=== PATIENT | male | born 1950 | race Caucasian/White ===

== ENCOUNTER → 2016-11-26 | Outpatient (CLI) | payer BC ==
[~2016-11-26] MED LIST: GLIM1TAB2 PO; METF500T PO; SIMV40TA2 PO
[2016-11-26 09:53] LABS: ALT/SGPT 41 U/L (12-78); AST/SGOT 28 U/L (15-37); BLOOD UREA NITROGEN 19 mg/dl (7-18); BUN/CREATININE RATIO 17.3 (10-20); CALCIUM 9.1 mg/dl (8.5-10.1); CARBON DIOXIDE 23 mmol/L (21-32); CHLORIDE 108 mmol/L (98-107); CHOLESTEROL 128 mg/dl (0-200); GLUCOSE 133 mg/dl (70-99); POTASSIUM 3.9 mmol/L (3.5-5.1); SODIUM 141 mmol/L (136-145)
[2016-11-26 09:57] LABS: CHOLESTEROL/HDL RATIO 3.2; HDL CHOLESTEROL 40 mg/dl; LDL CHOLESTEROL CALCULATED 70 mg/dl; TRIGLYCERIDES 89 mg/dl (0-150); VERY LOW DENSITY LIPOPROT CALC 18 mg/dl
[2016-11-26 09:59] LABS: ESTIMATED AVERAGE GLUCOSE 171 mg/dl; HA1C FLAG Normal (Normal)
[2016-11-26 10:24] LABS: RATIO 6.1 mcg/mg (0-30.0)
== END | disposition home or self-care (01) ==
LOC: C.LAB1850 08:05
PROVIDERS: ATTEND Internal Medicine
DX: E11.9 Type 2 diabetes mellitus without complications (principal); E78.5 Hyperlipidemia, unspecified; Z12.5 Encounter for screening for malignant neoplasm of prostate

== ENCOUNTER → 2017-08-08 | Outpatient (CLI) | payer BC ==
[2017-08-08 13:32] LABS: ESTIMATED AVERAGE GLUCOSE 186 mg/dl; HA1C FLAG Normal (Normal)
[2017-08-08 13:39] LABS: BLOOD UREA NITROGEN 14 mg/dl (7-18); BUN/CREATININE RATIO 12.5 (10-20); CALCIUM 9.2 mg/dl (8.5-10.1); CARBON DIOXIDE 28 mmol/L (21-32); CHLORIDE 104 mmol/L (98-107); CREATININE 1.12 mg/dl (0.60-1.40); GLUCOSE 138 mg/dl (70-99); POTASSIUM 3.9 mmol/L (3.5-5.1); SODIUM 136 mmol/L (136-145)
== END | disposition home or self-care (01) ==
LOC: C.LAB1850 11:55
PROVIDERS: ATTEND Internal Medicine
DX: E11.9 Type 2 diabetes mellitus without complications (principal)

== ENCOUNTER 2019-07-24 09:55 | Inpatient (IN) ==
[2019-07-24] MEDS ORDERED: ACETAMINOPHEN 325 MG TAB PO PRN (10:20)
[2019-07-24] MEDS ORDERED: POLYETHYLENE (MIRALAX) 17 GM PACK PO PRN (10:20)
[2019-07-24] MEDS ORDERED: ONDANSETRON INJ 2 MG/ML 2 ML VIAL IV PRN (10:20)
[2019-07-24] MEDS ORDERED: SODIUM CHLORIDE 0.9% 250 ML IV PRN (10:23)
[2019-07-24] MEDS ORDERED: DEXTROSE 50% 50 ML SYRINGE IV PRN (10:26)
[2019-07-24] MEDS ORDERED: GLUCOSE 10 TABS/TUBE PO PRN (10:26)
[2019-07-24] MEDS ORDERED: CARBOHYDRATES FOR HYPOGLYCEMIA PO PRN (10:26)
[2019-07-24] MEDS ORDERED: GLUCAGON FOR INJ 1 MG VIAL SQ PRN (10:26)
[2019-07-24] MEDS ORDERED: GLUCOSE 40% GEL 15 GM TUBE PO PRN (10:26)
[2019-07-24] MEDS ORDERED: SODIUM CHLORIDE 0.9% 1000ML 1,000 ML IV SCH (10:30)
[2019-07-24] MEDS ORDERED: PATIENT'S HEIGHT AND/OR WEIGHT NEEDED SCH (10:30)
[2019-07-24] MEDS ORDERED: PHARMACY GLYCEMIC MGMT CONSULT PRN (10:48)
[2019-07-24 10:52] LABS: Hematocrit (blood only) 22.9 % (42-52); Hemoglobin 7.6 g/dL (14.0-18.0); Mean Corpuscular Hemoglobin 27.5 pg (25-34); Mean Corpuscular Hgb Conc 33.2 g/dL (32-36); Mean Platelet Volume 8.2 fL (7.4-10.4); Platelet Count 127 K/uL (130-400); RDW Coefficient of Variation 16.2 % (11.5-14.5); RDW Standard Deviation 48.6 fL (36.4-46.3); Red Blood Count 2.76 M/uL (4.7-6.1); White Blood Count 8.62 K/uL (4.8-10.8)
[2019-07-24 11:20] LABS: Basophils # (auto) 0.34 K/uL (0-0.2); Basophils % (auto) 3.9 %; Eosinophils # (auto) 0.05 K/uL (0-0.5); Eosinophils % (auto) 0.6 %; Immature Granulocytes # (auto) 0.38 K/uL (0.00-0.02); Immature Granulocytes % (auto) 4.4 %; Lymphocytes # (auto) 1.52 K/uL (1.2-3.4); Lymphocytes % (auto) 17.6 %; Monocytes # (auto) 1.06 K/uL (0.11-0.59); Monocytes % (auto) 12.3 %; Neutrophils # (auto) 5.27 K/uL (1.4-6.5); Neutrophils % (auto) 61.2 %
[2019-07-24 11:24] LABS: Alanine Aminotransferase 13 U/L (12-78); Albumin Globulin Ratio 0.7 (0.9-2); Albumin Level 2.7 gm/dl (3.4-5.0); Alkaline Phosphatase 120 U/L (45-117); Aspartate Aminotransferase 127 U/L (15-37); BUN Creatinine Ratio 10.3 (10-20); Bilirubin,Total 0.9 mg/dl (0.2-1); Blood Urea Nitrogen 25 mg/dl (7-18); Calcium 10.4 mg/dl (8.5-10.1); Carbon Dioxide 21 mmol/L (21-32); Chloride 100 mmol/L (98-107); Est GFR (African American) 29.8; Est GFR (Non-African American) 25.7; Globulin 3.7 gm/dl (2.5-4.0); Glucose 112 mg/dl (70-99); Magnesium 1.5 mg/dl (1.8-2.4); Phosphorus 3.5 mg/dl (2.5-4.9); Potassium 4.1 mmol/L (3.5-5.1); Sodium 132 mmol/L (136-145); Total Protein 6.4 gm/dl (6.4-8.2); Uric Acid 12.3 mg/dl (2.6-7.2)
[2019-07-24] MEDS ORDERED: INSULIN HUMAN NPH SC SCH ×2 (11:30)
--- NOTE | 2019-07-24 11:48 | History & Physical Report ---
Date of Service July 24, 2019 Assessment & Plan (1) Diffuse large B cell lymphoma: - Recently diagnosed DLBCL -- admitted for R-CHOP chemotherapy, plan to start on 07/25/19. - Prednisone 100 mg daily x 5 days. - Monitor TLS labs q8hr (see below) - Oncology consulted, appreciate input. - Pt. will require Neulasta injection as outpatient following completion of chemotherapy (will need to arrange in infusion center, is not covered inpatient) (2) Tumor lysis syndrome: - In setting of DLBCL -- evidence of TLS on admission labs. - NS at 150 cc/hr for aggressive IV fluid hydration. - Start Allopurinol 300 mg daily; may require Rasburicase if no improvement in uric acid levels. - Monitor TLS labs qAM. (3) Acute renal failure: - In setting of DLBCL/TLS and likely partially related to dehydration. - Creatinine 2.46, baseline ~1.2-1.3. - NS at 150 cc/hr. - Monitor BMP q8hr -- next lab at 8 pm this evening. (4) Hypercalcemia: - In setting of malignancy. - On IV fluids at 150 cc/hr. (5) Elevated blood uric acid level: - In setting of TLS -- uric acid level was 12.3. - Will start allopurinol 300 mg daily and IV fluids. - Monitor level q8hr; consider rasburicase if no improvement. (6) Anemia: - In setting of DLBCL. - Hgb 7.6 - will transfuse 2 units pRBCs. - Monitor CBC qAM. (7) Thrombocytopenia: - Plt count slowly trending down. - Continue Heparin ppx, hold if plt <50K. (8) Elevated LFTs: - Elevated AST and Alk Phos. - Monitor CMP daily. (9) Diabetes mellitus: - Most recent A1C was 10.2 in May 2019. - Hold home oral agents. - Consulted pharmacy as inpatient due to likelihood of steroid induced hyperglycemia. (10) Hyperlipidemia: - Continue statin as prescribed with close monitoring of LFTs. (11) Hypothyroidism: - Continue Synthroid 100 mcg daily. - TSH was 10.2 in Jun; will hold repeat level due to acute illness. (12) Electrolyte abnormality: - Mag level 1.5 -- ordered mag sulfate 2 gm IV. (13) DVT prophylaxis: - SCDs; Heparin q12hr (hold if plt <50K) Dispo: PCU/tele for R-chop chemotherapy; will need Neulasta at discharge. Consider PT/OT evaluation due to weakness. History of Present Illness Chief Complaint: Inpatient chemotherapy Primary Care Provider: Blayne Webber MD Mr. Maria is a 68 year old with past medical history of hypothyroidism, HLD, Type II DM and recently diagnosed diffuse large B-cell Lymphoma who presented with fatigue and loss of appetite. Pt. was initially evaluated by hematology in June 2019 with B symptoms. He had diffuse lymphadenopathy and splenic lesions on CT scan. Bone marrow biopsy along with lymph node biopsy confirmed DLBCL diagnosis. He is status post port placement for chemotherapy administration. He was evaluated in the clinic by Dr. Angulo and referred for direct admission/urgent chemotherapy. Pt. states he has had increased fatigue/loss of appetite over the last few weeks since diagnosis. Oral intake is very poor -- minimal fluid intake at home. Last BM was on Saturday prior to mediport placement. Pt. has had a rash on both arms over the last month -- states rash is non-pruritic but has been increasing over last few days. Denies nausea/vomiting, abd pain, fever/chills, dysuria or hematuria, urinary retention, LE edema, headache, URI symptoms. He will be admitted for cycle 1 of R-CHOP chemotherapy. Admission lab work was consistent with TLS requiring PO Allopurinol and IV fluid hydration. Allergies Allergy/AdvReac Type Severity Reaction Status Date / Time No Known Drug Allergies Allergy Unknown . Verified 07/21/19 08:04 Home Medications Home Medications Medication Instructions Recorded Confirmed Type Januvia 100 mg PO QAM 07/08/19 07/21/19 History levothyroxine 100 mcg PO QAM 07/08/19 07/21/19 History metformin 1,000 mg PO QPM 07/08/19 07/21/19 History simvastatin 40 mg PO HS 07/08/19 07/21/19 History allopurinol 300 mg PO DAILY #1 tab 07/25/19 Rx prednisone 100 mg PO DAILY #3 tab 07/25/19 Rx Past Med/Surg History Medical History Anemia Anemia Diabetes mellitus type 2, not well controlled Diffuse large B cell lymphoma Hearing deficit Hypercholesterolemia Hypothyroidism Lymphoma NEW DX SOB (shortness of breath) on exertion Surgical History History of colonoscopy S/P lymph node biopsy (07/09/19) Left Marla Incisional Lymph Node Biopsy Dr. Myers 07/09/19 [place] teeth removed Family History Mother Cancer Brain cancer Heart disease Father Cancer Lung cancer Diabetes Social History Preferred Language: Icelandic Communication Ability: Effective Visual Impairment: No Limitations Hearing Ability: Normal Wireless Sales Associate Required: No Beliefs That Will Affect Care: None marital status: Current Living Situation: Spouse current occupational status: employed and retired Feels Safe at Home: Yes Smoking Status: Never smoker Second Hand Exposure: No ; Hx Alcohol Use: Yes Alcohol type: beer and wine Alcohol Intake Frequency: Holidays/Special Occasions Hx Substance Use: No Seatbelt Use: always Review of Systems Review of Systems: All systems reviewed & are unremarkable except as noted in HPI & below Constitutional: + fatigue, + malaise, + weakness, + anorexia and + weight loss; no fever and no chills Respiratory: no cough, no dyspnea, no dyspnea on exertion and no wheezing Cardiovascular: no chest pain, no palpitations and no edema Gastrointestinal: + constipation; no abdominal pain, no nausea, no vomiting and no diarrhea/loose stools Genitourinary: no dysuria and no difficulty urinating Musculoskeletal: no back pain and no joint pain Integumentary: + rash and + non-healing lesions Hematologic / Lymphatic: + lymphadenopathy and + unexplained weight loss; no easy bleeding and no easy bruising Physical Exam Physical Exam: General: Frail appearing male, no acute distress. HEENT: NC/AT; PERRLA with EOMI; [place] conjunctiva, MMM. No erythema of posterior pharynx Neck: Supple and nontender Cardiac: RRR Lungs: CTA bilaterally Abdomen: Bowel normoactive X 4; Nontender to palpation Extremities: Warm. No edema present Neuro: No focal weakness Skin: Erythematous papules scattered on bilat upper extremities, some lesions with ring like appearance. Results & Data Laboratory Results 07/24/19 07/24/19 07/24/19 Range/Units 11:21 10:36 10:36 WBC (4.8-10.8) K/uL RBC (4.7-6.1) M/uL Hgb (14.0-18.0) g/dL Hct (42-52) % MCV (80-100) fL MCH (25-34) pg MCHC (32-36) g/dL RDW Std Deviation (36.4-46.3) fL RDW Coeff of Sunni (11.5-14.5) % Plt Count (130-400) K/uL MPV (7.4-10.4) fL Immature Gran % (Auto) % Neut % (Auto) % Lymph % (Auto) % [place] % (Auto) % Eos % (Auto) % Baso % (Auto) % Immature Gran # (Auto) (0.00-0.02) K/uL Neut # (Auto) (1.4-6.5) K/uL Lymph # (Auto) (1.2-3.4) K/uL [place] # (Auto) (0.11-0.59) K/uL Eos # (Auto) (0-0.5) K/uL Baso # (Auto) (0-0.2) K/uL Sodium (136-145) mmol/L Potassium (3.5-5.1) mmol/L Chloride (98-107) mmol/L Carbon Dioxide (21-32) mmol/L Anion Gap (3-11) BUN (7-18) mg/dl Creatinine (0.6-1.4) mg/dl Est Cr Clr Drug Dosing Est GFR ( Amer) Est GFR (Non-Af Amer) BUN/Creatinine Ratio (10-20) Glucose (70-99) mg/dl POC Glucose 119 H (70-99) Uric Acid (2.6-7.2) mg/dl Calcium (8.5-10.1) mg/dl Phosphorus (2.5-4.9) mg/dl Magnesium (1.8-2.4) mg/dl Total Bilirubin (0.2-1) mg/dl AST (15-37) U/L ALT (12-78) U/L Alkaline Phosphatase (45-117) U/L Lactate Dehydrogenase 1114 H (87-241) U/L Total Protein (6.4-8.2) gm/dl Albumin (3.4-5.0) gm/dl Globulin (2.5-4.0) gm/dl Albumin/Globulin Ratio (0.9-2) Specimen Hemolysis Blood Type O Positive Antibody Screen NEGATIVE Crossmatch See Detail 07/24/19 07/24/19 Range/Units 10:36 10:36 WBC 8.62 (4.8-10.8) K/uL RBC 2.76 L (4.7-6.1) M/uL Hgb 7.6 L (14.0-18.0) g/dL Hct 22.9 L (42-52) % MCV 83.0 (80-100) fL MCH 27.5 (25-34) pg MCHC 33.2 (32-36) g/dL RDW Std Deviation 48.6 H (36.4-46.3) fL RDW Coeff of [place] 16.2 H (11.5-14.5) % Plt Count 127 L (130-400) K/uL MPV 8.2 (7.4-10.4) fL Immature Gran % (Auto) 4.4 % Neut % (Auto) 61.2 % Lymph % (Auto) 17.6 % [place] % (Auto) 12.3 % Eos % (Auto) 0.6 % Baso % (Auto) 3.9 % Immature Gran # (Auto) 0.38 H (0.00-0.02) K/uL Neut # (Auto) 5.27 (1.4-6.5) K/uL Lymph # (Auto) 1.52 (1.2-3.4) K/uL [place] # (Auto) 1.06 H (0.11-0.59) K/uL Eos # (Auto) 0.05 (0-0.5) K/uL Baso # (Auto) 0.34 H (0-0.2) K/uL Sodium 132 L (136-145) mmol/L Potassium 4.1 (3.5-5.1) mmol/L Chloride 100 (98-107) mmol/L Carbon Dioxide 21 (21-32) mmol/L Anion Gap 11.0 (3-11) BUN 25 H (7-18) mg/dl Creatinine 2.46 H (0.6-1.4) mg/dl Est Cr Clr Drug Dosing Not Reportable Est GFR ( Amer) 29.8 Est GFR (Non-Af Amer) 25.7 BUN/Creatinine Ratio 10.3 (10-20) Glucose 112 H (70-99) mg/dl POC Glucose (70-99) Uric Acid 12.3 H (2.6-7.2) mg/dl Calcium 10.4 H (8.5-10.1) mg/dl Phosphorus 3.5 (2.5-4.9) mg/dl Magnesium 1.5 L (1.8-2.4) mg/dl Total Bilirubin 0.9 (0.2-1) mg/dl AST 127 H (15-37) U/L ALT 13 (12-78) U/L Alkaline Phosphatase 120 H (45-117) U/L Lactate Dehydrogenase (87-241) U/L Total Protein 6.4 (6.4-8.2) gm/dl Albumin 2.7 L (3.4-5.0) gm/dl Globulin 3.7 (2.5-4.0) gm/dl Albumin/Globulin Ratio 0.7 L (0.9-2) Specimen Hemolysis Blood Type Antibody Screen Crossmatch Code Status & VTE Plan VTE Prophylaxis Plan VTE Prophylaxis will be ordered: No Supervising Physician Co-Signing Physician Notes Patient was interviewed and examined at bedside. I reviewed above note and agree with it. I answered all of the patient's questions. My exam did not diFfer from the exam noted on this document. Obtained consent to transfuse PRBC. Patient has tumor lysis syndrome, daphne continue with IVF. PG Care Time/CCT Total # of Minutes Spent Total Time Spent with Patient: Total time spent is greater than 50% in coordination of care (as documented) at patient's floor/unit and/or counseling patient:
[2019-07-24] MEDS: ALLOPURINOL 300 MG TAB PO SCH (12:04)
--- NOTE | 2019-07-24 12:26 | Pharmacy Report ---
Glycemic Control Consultation - Date of Service July 24, 2019 - Scope Scope: Glycemic Pharmacist consulted by Negrita Walter on 07/24/19 for glycemic control and to write orders per [facility] inpatient glycemic control protocol - Objective Accuchecks BSG (last 24hrs): 07/24/19 07/24/19 10:36 11:21 Glucose 112 H POC Glucose 119 H Laboratory Data (last 24hrs): 07/24/19 10:36 Potassium 4.1 Carbon Dioxide 21 Anion Gap 11.0 Creatinine 2.46 H Est Cr Clr Drug Dosing Not Reportable - Recent Pertinent Medications Outpatient Anti-diabetic Regimen: * metformin 1 gm PO BID + Januvia 100 mg daily * A1c = 10.2 % 05/21/19 Risk Factors for Insulin Resistance: * Steroids: prednisone 100 mg PO Daily x 5 days * Diet: regular diet - Assessment & Plan Assessment & Plan: ASSESSMENT: * Mr Maria is a 68 y/o M admitted for RCHOP therapy with TLS (tumor lysis syndrome). His HbA1C indicates poor control HOWEVER I'm not sure this is 100% accurate. HbA1C is affected by red blood cell life (currently receiving blood and has lymphoma) plus recent steroid use. Will not order basal insulin at this time. Prior to port placement on 07/21/19 patient was hypoglycemic in the morning. Monitor. * Since patient will receive 100 mg of prednisone - start with NPH 0.4 units/kg (30 units) and titrate upwards. Weight-based stress of 3 Novolog for now. * Pt is maintained on oral antidiabetic agents as an outpatient * Oral agents are not recommended for inpatient use d/t drug interactions, changing PO intake, and difficulty titrating for acute hyper/hypoglycemia. ADA recommends re-initiating outpatient oral agents 1-2 days prior to discharge if/when appropriate if they were held on admission. * Will hold oral agents for admission and utilize SQ basal bolus insulin regimen which is the recommended regimen for inpatient glycemic control. * Will initiate weight based insulin dosing for insulin karen patient and titrate based on BSG trends. * ADA & AACE recommend a goal blood sugar range 140-180 mg/dl for the majority of critically ill & non-critically ill patients. However, more stringent targets may be selected in individual cases. Will utilize more stringent goal of 110-140mg/dl based on patient age & comorbidities. PLAN FOR INPATIENT GLYCEMIC CONTROL: * Holding outpatient oral diabetes medications * Bolus insulin * NovoLog per scale ACHS or Q6hrs while NPO * Goal Range: Low 110 mg/dL - High 140 mg/dL * Correction Factor: 20 mg/dL/unit * Nutritional / Prandial insulin per carb ratio of 1 unit per 7 grams CHO consumed * Please note that the plan above was derived based on current level of insulin resistance and hospital stress. These recommendations are appropriate for inpatient admission only. Plan of care upon discharge will need to be reassessed to avoid potential outpatient hypo/hyperglycemia. Thank you.
[2019-07-24] MEDS: INSULIN ASPART 100 UNITS/ML 3 ML PEN SC SCH ×3 (12:30→21:20)
[2019-07-24] MEDS: predniSONE 50 MG TAB PO SCH (12:37)
[2019-07-24] MEDS: MAGNESIUM SULFATE / D5W 1 GM/100 ML BAG IV SCH ×2 (12:42→14:21)
--- NOTE | 2019-07-24 20:09 | Nephrology Consultation ---
Date of Consultation July 24, 2019 Assessment & Plan (1) Diffuse large B cell lymphoma: - Admitted for R-CHOP chemotherapy - Oncology notes reviewed (2) Tumor lysis syndrome: - Switch IV saline to normosol - Document I/O's - Repeat labs pending - Rasburicase prior to starting therapy, suggest a dose tonight if UA remains elevated (3) Acute renal failure: - IVF - Document I/O's - Clinically consistent with TLS/ATN - TLS labs q 8 hours - Check renal US (4) Hypercalcemia: - In setting of malignancy - IVF to encourage UOP (5) Elevated blood uric acid level: - Allopurinol and rasburicase (6) Anemia: - 2 u PRBC ordered (7) Diabetes mellitus: - Januvia and meformin held History of Present Illness Reason for Consultation: HILARIO, TLS Requesting Physician: Luis Carlos Serrano Attending Physician: Luis Carlos Serrano History of Present Illness Mr. Reji Maria is a 68-year-old male with DLBCL. The patient was seen and evaluated this afternoon with his at the bedside. Nephrology consultation provided for HILARIO and TLS. Patient scheduled for R-CHOP. Baseline creatinine 1.3 mg/dL. Creatinine on admission 2.46 mg/dL. Non-oliguric. UA 12+. Calcium 10.4. PO4 WNL. Albumin 2.4. Potassium normal. Hemoglobin 7.6. 2 units PRBC transfusion support ordered. IV saline infusing at 150 ml/hr. Medical history notable for DM and hypothyroidism. No fevers. No urinary complaints. Voiding without difficulty. No dyspnea. Allergies Allergy/AdvReac Type Severity Reaction Status Date / Time No Known Drug Allergies Allergy Unknown . Verified 07/21/19 08:04 Home Medications Home Medications Medication Instructions Recorded Confirmed Type Januvia 100 mg PO QAM 07/08/19 07/21/19 History levothyroxine 100 mcg PO QAM 07/08/19 07/21/19 History metformin 1,000 mg PO QPM 07/08/19 07/21/19 History simvastatin 40 mg PO HS 07/08/19 07/21/19 History cephalexin 500 mg capsule 500 mg PO QID 7 Days #28 cap 07/15/19 07/21/19 Rx triamcinolone acetonide [Nasacort] 2 spray INTRANASAL DAILY PRN 07/15/19 07/21/19 History Patient History Medical History Anemia Anemia Diabetes mellitus type 2, not well controlled Diffuse large B cell lymphoma Hearing deficit Hypercholesterolemia Hypothyroidism Lymphoma NEW DX SOB (shortness of breath) on exertion Surgical History History of colonoscopy S/P lymph node biopsy (07/09/19) Left Marla Incisional Lymph Node Biopsy Dr. Myers 07/09/19 [place] teeth removed Family History Mother Cancer Brain cancer Heart disease Father Cancer Lung cancer Diabetes Social History Preferred Language: Bangladeshi Communication Ability: Effective Visual Impairment: No Limitations Hearing Ability: Normal Locator Required: No Beliefs That Will Affect Care: None marital status: Current Living Situation: Spouse current occupational status: employed and retired Other Information That Helps Us Care for You: No Feels Safe at Home: Yes Safety Concerns: Feels Safe At This Time Smoking Status: Never smoker Do You Dip or Chew Tobacco: No ; Second Hand Exposure: No ; Hx Alcohol Use: Yes Alcohol type: beer and wine Alcohol Intake Frequency: Holidays/Special Occasions Hx Substance Use: No Seatbelt Use: always Review of Systems Review of Systems: All systems reviewed & are unremarkable except as noted in HPI & below Physical Exam Constitutional: well developed; no acute distress Eyes: no scleral abnormality and no corneal abnormality ENMT: Mouth: no oral mucosal abnormality and oral mucous membranes not dry Neck: normal visual inspection and trachea midline Respiratory: normal respiratory effort Auscultation: lungs clear to auscultation bilaterally Cardiovascular: Rate/Rhythm: regular rate Heart Sounds: normal S1 and normal S2 Extremities: no edema Musculoskeletal: Extremities: no cyanosis and no clubbing Skin: normal turgor; no lesions Neurologic: Motor/Sensory: no tremor and no asterixis Psychiatric: Orientation: alert and oriented x 3 Results & Data Vital Signs (Past 12 Hours) Vital Signs Temp Pulse Pulse Resp BP BP Pulse Ox 07/24/19 18:50 36.6 C 93 H 15 154/78 H 96 07/24/19 18:24 36.4 C L 95 H 20 154/68 H 95 07/24/19 17:16 36.5 C 90 18 163/86 H 96 07/24/19 17:14 36.8 C 93 H 20 158/85 H 95 07/24/19 16:36 36.3 C L 87 22 148/80 H 94 07/24/19 15:36 36.4 C L 88 19 144/76 H 94 07/24/19 15:08 36.9 C 87 20 147/77 H 95 07/24/19 15:06 36.4 C L 85 20 147/77 H 92 07/24/19 14:51 36.9 C 07/24/19 14:35 36.8 C 90 20 143/77 H 90 07/24/19 10:30 36.8 C 95 H 20 101/48 L 95 Laboratory Results Laboratory Results - last 24 hr 07/24/19 07/24/19 07/24/19 10:36 10:36 10:36 WBC 8.62 RBC 2.76 L Hgb 7.6 L Hct 22.9 L MCV 83.0 MCH 27.5 MCHC 33.2 RDW Std Deviation 48.6 H RDW Coeff of Sunni 16.2 H Plt Count 127 L MPV 8.2 Immature Gran % (Auto) 4.4 Neut % (Auto) 61.2 Lymph % (Auto) 17.6 [place] % (Auto) 12.3 Eos % (Auto) 0.6 Baso % (Auto) 3.9 Immature Gran # (Auto) 0.38 H Neut # (Auto) 5.27 Lymph # (Auto) 1.52 [place] # (Auto) 1.06 H Eos # (Auto) 0.05 Baso # (Auto) 0.34 H Sodium 132 L Potassium 4.1 Chloride 100 Carbon Dioxide 21 Anion Gap 11.0 BUN 25 H Creatinine 2.46 H Est Cr Clr Drug Dosing Not Reportable Est GFR ( Amer) 29.8 Est GFR (Non-Af Amer) 25.7 BUN/Creatinine Ratio 10.3 Glucose 112 H POC Glucose Uric Acid 12.3 H Calcium 10.4 H Phosphorus 3.5 Magnesium 1.5 L Total Bilirubin 0.9 AST 127 H ALT 13 Alkaline Phosphatase 120 H Lactate Dehydrogenase Total Protein 6.4 Albumin 2.7 L Globulin 3.7 Albumin/Globulin Ratio 0.7 L Specimen Hemolysis Blood Type O Positive Antibody Screen NEGATIVE Crossmatch See Detail 07/24/19 07/24/19 07/24/19 10:36 11:21 16:35 WBC RBC Hgb Hct MCV MCH MCHC RDW Std Deviation RDW Coeff of [place] Plt Count MPV Immature Gran % (Auto) Neut % (Auto) Lymph % (Auto) [place] % (Auto) Eos % (Auto) Baso % (Auto) Immature Gran # (Auto) Neut # (Auto) Lymph # (Auto) [place] # (Auto) Eos # (Auto) Baso # (Auto) Sodium Potassium Chloride Carbon Dioxide Anion Gap BUN Creatinine Est Cr Clr Drug Dosing Est GFR ( Amer) Est GFR (Non-Af Amer) BUN/Creatinine Ratio Glucose POC Glucose 119 H 129 H Uric Acid Calcium Phosphorus Magnesium Total Bilirubin AST ALT Alkaline Phosphatase Lactate Dehydrogenase 1114 H Total Protein Albumin Globulin Albumin/Globulin Ratio Specimen Hemolysis Blood Type Antibody Screen Crossmatch PG Care Time/CCT Total # of Minutes Spent Total Time Spent with Patient: Total time spent is greater than 50% in coordination of care (as documented) at patient's floor/unit and/or counseling patient:
[2019-07-24] MEDS ORDERED: SIMVASTATIN 40 MG TAB PO SCH (21:00)
[2019-07-24] MEDS: HEPARIN SOD 5,000 UNIT/0.5 ML VIAL SQ SCH (21:20)
[2019-07-24] MEDS: NORMOSOL-R 1,000 ML IV SCH (21:45)
[2019-07-24 22:42] LABS: Calcium 10.4 mg/dl (8.5-10.1); Creatinine Clr Calc Pharmacy 32.4 ml/min; Est GFR (African American) 33.8; Est GFR (Non-African American) 29.2; Phosphorus 5.5 mg/dl (2.5-4.9); Potassium 4.7 mmol/L (3.5-5.1); Uric Acid 11.1 mg/dl (2.6-7.2)
[2019-07-24 22:58] LABS: Beta-Hydroxybutyrate 22.46 mg/dl (0.2-2.81)
[2019-07-25] MEDS ORDERED: HEPARIN 100 UNIT/ML 5ML FLUSH FLUSH PRN (00:28)
[2019-07-25 04:10] LABS: Hematocrit (blood only) 25.8 % (42-52); Hemoglobin 8.6 g/dL (14.0-18.0); Mean Corpuscular Hemoglobin 28.1 pg (25-34); Mean Corpuscular Hgb Conc 33.3 g/dL (32-36); Mean Corpuscular Volume 84.3 fL (80-100); Mean Platelet Volume 8.7 fL (7.4-10.4); Nucleated RBC # (auto) 0.02 K/uL (0-0); Nucleated RBC % (auto) 0.3 %; Platelet Count 115 K/uL (130-400); RDW Coefficient of Variation 15.8 % (11.5-14.5); RDW Standard Deviation 48.3 fL (36.4-46.3); Red Blood Count 3.06 M/uL (4.7-6.1); White Blood Count 7.99 K/uL (4.8-10.8)
[2019-07-25] MEDS: NORMOSOL-R 1,000 ML IV SCH ×3 (04:29→13:23)
[2019-07-25 04:39] LABS: Albumin Level 2.4 gm/dl (3.4-5.0); BUN Creatinine Ratio 18.2 (10-20); Bilirubin Direct 0.3 mg/dl (0-0.2); Bilirubin,Total 0.6 mg/dl (0.2-1); Creatinine Clr Calc Pharmacy 33.5 ml/min; Est GFR (African American) 35.1; Est GFR (Non-African American) 30.3; Magnesium 2.1 mg/dl (1.8-2.4); Phosphorus 5.6 mg/dl (2.5-4.9); Potassium 4.5 mmol/L (3.5-5.1); Total Protein 5.7 gm/dl (6.4-8.2); Uric Acid 10.9 mg/dl (2.6-7.2)
[2019-07-25 05:01] LABS: Beta-Hydroxybutyrate 14.46 mg/dl (0.2-2.81)
[2019-07-25 05:36] LABS: Appearance Urine Clear (Clear); Bacteria Urine Automated Negative (Negative); Bilirubin Urine Negative (Negative); Blood Urine 3+ (Negative); Color Urine Yellow; Epithelial Cell Urine Auto >30 /lpf (0-5); Glucose Urine UA 3+ (Negative); Ketones Urine Trace (Negative); Leukocyte Esterase Urine Negative (Negative); Nitrite Urine Negative (Negative); Protein Urine 1+ (Negative); Specific Gravity Urine 1.023 (1.000-1.030); Urobilinogen Urine Negative (Negative)
[2019-07-25] MEDS ORDERED: LEVOTHYROXINE SODIUM 100 MCG TABLET PO SCH (06:30)
[2019-07-25] MEDS ORDERED: ACETAMINOPHEN 325 MG TAB PO SCH (07:30)
[2019-07-25] MEDS ORDERED: dexAMETHasone 4 MG TAB PO SCH (07:30)
[2019-07-25] MEDS ORDERED: DiphenhydrAMINE HCL 50 MG/ML VIAL IV SCH (07:30)
[2019-07-25] MEDS ORDERED: INSULIN HUMAN NPH SC ONE (07:45)
[2019-07-25] MEDS: predniSONE 50 MG TAB PO SCH (07:56)
[2019-07-25] MEDS: HEPARIN SOD 5,000 UNIT/0.5 ML VIAL SQ SCH (07:56)
[2019-07-25] MEDS: ALLOPURINOL 300 MG TAB PO SCH (07:56)
[2019-07-25] MEDS ORDERED: DiphenhydrAMINE HCL 50 MG/ML VIAL IV PRN (08:00)
[2019-07-25] MEDS: INSULIN ASPART 100 UNITS/ML 3 ML PEN SC SCH ×3 (08:00→18:26)
[2019-07-25] MEDS ORDERED: SODIUM CHLORIDE 0.9% IV SCH ×3 (08:00→14:00)
[2019-07-25] MEDS ORDERED: RITUXIMAB IV SCH (08:00)
[2019-07-25] MEDS ORDERED: MEPERIDINE HCL 25 MG/ML CARP IV PRN (08:00)
[2019-07-25] MEDS ORDERED: dexAMETHasone 20 MG in SODIUM CHLORIDE 0.9% 50 ML IV PRN (08:00)
[2019-07-25] MEDS ORDERED: SODIUM CHLORIDE 0.9% 1000ML 1,000 ML IV PRN (08:00)
[2019-07-25] MEDS ORDERED: RASBURICASE 3 MG in SODIUM CHLORIDE 0.9% 50 ML IV SCH (08:30)
[2019-07-25] MEDS ORDERED: DOCUSATE SODIUM 100 MG CAP PO SCH (09:00)
--- NOTE | 2019-07-25 09:18 | Consultation Report ---
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 HISTORY OF PRESENT ILLNESS: Mr. Maria is a very pleasant 68-year-old gentleman well known to [facility] with new diagnosis of stage IV diffuse large B cell lymphoma admitted to [facility] on my insistence after seeing him in the office yesterday for outpatient followup. I was introduced to Mr. Maria in early June at which time presented with night sweats, anorexia, weight loss and anemia. His primary provider had seen him previously and hence the consultation to pursue diagnosis. He imparts developing these symptoms around Labor Day or so. He was seen frequently by his primary care physician for diabetic workup and it was also noted hemoglobin had dropped about 2 grams in 2 months. I was concerned with these symptoms and ordered a CT scan of the neck, chest, abdomen and pelvis which revealed diffuse lymphadenopathy which prompted subsequent biopsy confirming the diagnosis. Performed staging bone marrow biopsy and aspiration which also confirmed presence of infiltrating non-Hodgkin's lymphoma. Mr. Maria had presented to the office yesterday to discuss bone marrow findings and was quite symptomatic. He was clearly in clinical decline and decided to proceed with admission. His laboratories reflect disease progression and thus a plan to proceed with cycle #1 R-CHOP chemotherapy. PAST MEDICAL HISTORY: Significant for type 1 diabetes mellitus, hypertension, hyperlipidemia. PAST SURGICAL HISTORY: Colonoscopy. CURRENT MEDICATIONS: Includes glimepiride 2 mg 1-1/2 tablets p.o. b.i.d., metformin 1000 mg p.o. daily, simvastatin 40 mg p.o. daily, sitagliptin 100 mg p.o. daily. ALLERGIES: No known drug allergies. 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 FAMILY HISTORY: Mother succumbed to brain cancer. REVIEW OF SYSTEMS: The patient clearly suffered from ongoing night sweats, anorexia and weight loss of about 20 pounds, he estimates. He also report occasional low-grade fever. SKIN: No rashes or lesions. No history of dermatoses. HEENT: Negative for headaches. He has experienced some lightheadedness and dizziness as of late. No sinus symptoms, sore throat or dysphagia. LYMPH: Diffuse radiographically evident lymphadenopathy consistent with lymphoproliferative process. CARDIAC: No current angina or palpitations. PULMONARY: He is not acutely short of breath, dyspneic or orthopneic. No cough or hemoptysis. GASTROINTESTINAL: Negative for abdominal pain, no nausea or vomiting. No diarrhea or constipation, hematochezia or melena stools. GENITOURINARY: No hematuria, dysuria, urinary incontinence. PSYCHIATRIC: Negative for anxiety, depression or psychoses by history. ENDOCRINE: Positive for type 1 diabetes mellitus. NEUROLOGIC: Negative for seizures, stroke, or migraine headache. MUSCULOSKELETAL: Negative for arthralgias or myalgias. No muscle weakness. HEMATOLOGIC: Positive for anemia. PHYSICAL EXAMINATION: GENERAL: Very pleasant 68-year-old gentleman in no acute distress. VITAL SIGNS: Temperature 36.4, pulse 77, respiratory rate 19, blood pressure 130/67. SKIN: Warm, dry, noncyanotic without petechia, rash or ecchymosis. HEENT: Head is atraumatic, normocephalic. Eyes: PERRLA, EOMI. Sclerae nonicteric. No conjunctival injection. Nares are patent without rhinorrhea or discharge. Throat is clear. Tongue is midline. Mucous membranes are moist. NECK: Supple without JVD or thyromegaly. LYMPHATICS: No cervical or supraclavicular palpable nodes. HEART: Regular rate and rhythm. No clicks, rubs, murmurs or gallops. LUNGS: Clear to auscultation bilaterally. ABDOMEN: Soft, nontender, nondistended, without palpable hepatosplenomegaly. EXTREMITIES: No calf tenderness or swelling. No clubbing, cyanosis or edema. NEUROLOGICALLY: The patient is awake, alert, and oriented x3. Cranial nerves are grossly intact. LABORATORY DATA: WBC count 7990, hemoglobin 8.6, platelet count 115,000. Sodium 131, potassium 4.5, chloride 97, carbon dioxide 24, creatinine 2.15, BUN 39, glucose 314, uric acid 10.9, phosphorus 5.6, AST 101. LDH 1050, albumin 2.4. IMPRESSION: 1. Symptomatic diffuse large B-cell lymphoma. 2. Induction chemotherapy rituximab, cyclophosphamide, Adriamycin, vincristine and prednisone. 3. Electrolyte dysfunction/tumor lysis syndrome. 4. Uric acid nephropathy. 5. Acute renal injury. 6. Hypoalbuminemia. 7. Anemia/thrombocytopenia. PLAN: In summary, Mr. Maria is a pleasant, quite ill 68-year-old gentleman who presented to my office yesterday morning quite ill. It was clear hospital admission was necessary to move forward. Fortunately, his MediPort had been installed and prepared to receive cycle #1 R-CHOP chemotherapy. Engaged in discussion with Mr. Maria and his regarding risks versus benefits associated with this combination chemotherapy. My fear short term is ongoing tumor lysis and management as well as profound myelosuppression attributable to infiltrating bone marrow disease. His hemoglobin was quite low on admission and recommended transfusion of packed RBCs which took place last night. Mr. Maria is suffering from considerable electrolyte dysfunction including elevated uric acid which needs to be managed. I recommended nephrology be consulted to assist in tumor lysis management. Other side effects associated with this agent include nausea and vomiting, alopecia, hemorrhagic cystitis, infusional reaction, peripheral neuropathy, constipation, and profound myelosuppression. The patient will require aggressive granulocyte colony-stimulating growth factor support. Vigorous IV hydration as well as maintaining reasonable p.o. intake throughout the process. I expect him to be hospitalized for the next 3-4 days. Mr. Maria and his understand without emergent treatment, he would most likely succumb within days and thus decided to proceed. Informed consent was obtained. He will begin chemotherapy this morning. We will continue to follow him throughout hospitalization and arrange for outpatient followup upon discharge. Thank you very much for allowing me to participate in the care of this very pleasant gentleman. NOELLE
[2019-07-25] MEDS ORDERED: POLYETHYLENE (MIRALAX) 17 GM PACK PO PRN (10:39)
--- NOTE | 2019-07-25 10:51 | Hospitalist Progress Note ---
Date of Service July 25, 2019 Assessment & Plan (1) Diffuse large B cell lymphoma: - Recently diagnosed DLBCL -- started cycle 1 R-CHOP this morning, day 1. - Prednisone 100 mg daily x 5 days. - Monitor TLS labs q8hr (see below) - Oncology consulted, appreciate input. - Will require Neulasta injection as outpatient following completion of chemotherapy (will need to arrange in infusion center, is not covered inpatient) (2) Tumor lysis syndrome: - In setting of DLBCL -- TLS noted on admission labs. Uric acid, Creatinine, Phos and LDH remain elevated. - Normosol at 150 cc/hr. - Allopurinol 300 mg daily; received Rasburicase 3 mg IV (usual dose of 6 mg IV, had limited supply in the pharmacy) x 1 dose this morning. - Monitor TLS labs q8hr. (3) Acute renal failure: - In setting of TLS and partially related to dehydration. - Creatinine peaked at 2.46, is now trending down; baseline ~1.2-1.3. - Normosol at 150 cc/hr - monitor for volume overload, did have pulm congestion and pleural effusions noted on CXR from 07/21. - Monitor BMP q8hr. (4) Hypercalcemia: - In setting of malignancy; level is improving. - IV fluids at 150 cc/hr. (5) Elevated blood uric acid level: - In setting of TLS -- uric acid level was 12.3, slightly improved to 10.9. - Allopurinol 300 mg daily and IV fluids. Also received Rasburicase 3 mg IV (limited supply availabe in pharmacy) - Monitor level q8hr. (6) Hypoxia: - Has been requiring 2L via NC. - CXR on 07/21 showed pulm vascular congestion, left>right pleural effusions. - Has been requiring aggressive IV fluids due to TLS, will need to monitor for volume overload. Consider repeat CXR vs. CT scan for worsening hypoxia. (7) Anemia: - In setting of DLBCL. - Hgb 7.6, received 2 units on 07/24. Not requiring transfusion support today. - Monitor CBC daily. - Pt. will need close follow up with lab work following R-CHOP chemotherapy. (8) Thrombocytopenia: - Plt count slowly trending down. - Continue Heparin ppx, hold if plt <50K. (9) Elevated LFTs: - Elevated AST and Alk Phos. - Monitor CMP daily - improving. (10) Diabetes mellitus: - Most recent A1C was 10.2 in May 2019. - Hold home oral agents. - Consulted pharmacy - currently treating steroid induced hyperglycemia. (11) Hyperlipidemia: - Continue statin as prescribed (monitor LFTs closely) (12) Hypothyroidism: - Continue Synthroid 100 mcg daily. - TSH was 10.2 in Jun; hold repeat level due to acute illness. (13) Electrolyte abnormality: - Replace as needed - caution with KCl replacement for hypokalemia in setting of TLS. (14) DVT prophylaxis: - SCDs; Heparin q12hr (hold if plt <50K) Dispo: R-chop chemotherapy; will need Neulasta at discharge. Will order PT evaluation due to increased weakness. Subjective Pt. has more energy today. Denies SOB but has been requiring 2L via NC. Denies chest pain. Has not had a BM since Saturday -- will start Colace 100 mg BID & Miralax prn. Today is day 1 of cycle 1 R-CHOP chemotherapy. Review of Systems Review of Systems: All systems reviewed & are unremarkable except as noted in HPI & below Constitutional: + fatigue, + weakness and + anorexia; no fever and no chills Respiratory: no cough, no dyspnea, no dyspnea on exertion and no wheezing Cardiovascular: no chest pain, no palpitations and no edema Gastrointestinal: + constipation; no abdominal pain and no nausea Genitourinary: no difficulty urinating Musculoskeletal: no back pain and no joint pain Integumentary: + rash Physical Exam Physical Exam: General: Frail appearing male. HEENT: NC/AT; PERRLA with EOMI; [place] conjunctiva, MMM. No erythema of posterior pharynx Neck: Supple and nontender Cardiac: RRR Lungs: on 2L via NC; mild crackles noted in bilat lung bases. Abdomen: Bowel normoactive X 4; Nontender to palpation Extremities: Warm. No edema present Neuro: No focal weakness Skin: Erythematous papules scattered on bilat upper extremities. Results & Data Vital Signs (Past 12 Hours) Vital Signs Temp Pulse Pulse Resp BP Pulse Ox 07/25/19 08:15 36.3 C L 86 18 125/72 07/25/19 07:32 36.4 C L 77 19 130/67 94 07/25/19 03:40 95 H 07/25/19 02:32 36.4 C L 90 17 132/73 94 07/24/19 23:45 36.7 C 97 H 21 145/80 H 93 Laboratory Results 07/25/19 07/25/19 07/25/19 Range/Units 07:35 07:34 05:25 WBC (4.8-10.8) K/uL RBC (4.7-6.1) M/uL Hgb (14.0-18.0) g/dL Hct (42-52) % MCV (80-100) fL MCH (25-34) pg MCHC (32-36) g/dL RDW Std Deviation (36.4-46.3) fL RDW Coeff of Sunni (11.5-14.5) % Plt Count (130-400) K/uL MPV (7.4-10.4) fL Immature Gran % (Auto) % Neut % (Auto) % Lymph % (Auto) % [place]win % (Auto) % Eos % (Auto) % Baso % (Auto) % Immature Gran # (Auto) (0.00-0.02) K/uL Neut # (Auto) (1.4-6.5) K/uL Lymph # (Auto) (1.2-3.4) K/uL [place]win # (Auto) (0.11-0.59) K/uL Eos # (Auto) (0-0.5) K/uL Baso # (Auto) (0-0.2) K/uL Absolute Nucleated RBC (0-0) K/uL Nucleated RBC % (auto) % Sodium (136-145) mmol/L Potassium (3.5-5.1) mmol/L Chloride (98-107) mmol/L Carbon Dioxide (21-32) mmol/L Anion Gap (3-11) BUN (7-18) mg/dl Creatinine (0.6-1.4) mg/dl Est Cr Clr Drug Dosing Est GFR ( Amer) Est GFR (Non-Af Amer) BUN/Creatinine Ratio (10-20) Glucose (70-99) mg/dl POC Glucose 353 H* 333 H* (70-99) Uric Acid (2.6-7.2) mg/dl Calcium (8.5-10.1) mg/dl Phosphorus (2.5-4.9) mg/dl Magnesium (1.8-2.4) mg/dl Total Bilirubin (0.2-1) mg/dl Direct Bilirubin (0-0.2) mg/dl AST (15-37) U/L ALT (12-78) U/L Alkaline Phosphatase (45-117) U/L Lactate Dehydrogenase (87-241) U/L Total Protein (6.4-8.2) gm/dl Albumin (3.4-5.0) gm/dl Globulin (2.5-4.0) gm/dl Albumin/Globulin Ratio (0.9-2) Beta-Hydroxybutyric Acd (0.2-2.81) mg/dl Specimen Hemolysis Urine Color Yellow Urine Appearance Clear (Clear) Urine pH 5.0 (4.5-7.5) Ur Specific [place] 1.023 (1.000-1.030) Urine Protein 1+ H (Negative) Urine Glucose (UA) 3+ H (Negative) Urine Ketones Trace H (Negative) Urine Blood 3+ H (Negative) Urine Nitrite Negative (Negative) Urine Bilirubin Negative (Negative) Urine Urobilinogen Negative (Negative) Ur Leukocyte Esterase Negative (Negative) Urine WBC (Auto) 1-5 (0-5) /hpf Urine RBC (Auto) 10-30 H (0-4) /hpf U Hyaline Cast (Auto) 5-10 H (0-5) /lpf U Epithel Cells (Auto) >30 H (0-5) /lpf Urine Bacteria (Auto) Negative (Negative) Urine Yeast Budding A (None Prsent) Blood Type Antibody Screen Crossmatch 07/25/19 07/25/19 07/25/19 Range/Units 04:03 04:03 04:03 WBC 7.99 (4.8-10.8) K/uL RBC 3.06 L (4.7-6.1) M/uL Hgb 8.6 L (14.0-18.0) g/dL Hct 25.8 L (42-52) % MCV 84.3 (80-100) fL MCH 28.1 (25-34) pg MCHC 33.3 (32-36) g/dL RDW Std Deviation 48.3 H (36.4-46.3) fL RDW Coeff of Sunni 15.8 H (11.5-14.5) % Plt Count 115 L (130-400) K/uL MPV 8.7 (7.4-10.4) fL Immature Gran % (Auto) % Neut % (Auto) % Lymph % (Auto) % [place] % (Auto) % Eos % (Auto) % Baso % (Auto) % Immature Gran # (Auto) (0.00-0.02) K/uL Neut # (Auto) (1.4-6.5) K/uL Lymph # (Auto) (1.2-3.4) K/uL [place]win # (Auto) (0.11-0.59) K/uL Eos # (Auto) (0-0.5) K/uL Baso # (Auto) (0-0.2) K/uL Absolute Nucleated RBC 0.02 H (0-0) K/uL Nucleated RBC % (auto) 0.3 % Sodium 131 L (136-145) mmol/L Potassium 4.5 (3.5-5.1) mmol/L Chloride 97 L (98-107) mmol/L Carbon Dioxide 24 (21-32) mmol/L Anion Gap 10.0 (3-11) BUN 39 H (7-18) mg/dl Creatinine 2.15 H (0.6-1.4) mg/dl Est Cr Clr Drug Dosing 33.5 Est GFR ( Amer) 35.1 Est GFR (Non-Af Amer) 30.3 BUN/Creatinine Ratio 18.2 (10-20) Glucose 314 H* (70-99) mg/dl POC Glucose (70-99) Uric Acid 10.9 H (2.6-7.2) mg/dl Calcium 10.0 (8.5-10.1) mg/dl Phosphorus 5.6 H (2.5-4.9) mg/dl Magnesium 2.1 (1.8-2.4) mg/dl Total Bilirubin 0.6 (0.2-1) mg/dl Direct Bilirubin 0.3 H (0-0.2) mg/dl AST 101 H (15-37) U/L ALT 14 (12-78) U/L Alkaline Phosphatase 105 (45-117) U/L Lactate Dehydrogenase 1050 H (87-241) U/L Total Protein 5.7 L (6.4-8.2) gm/dl Albumin 2.4 L (3.4-5.0) gm/dl Globulin (2.5-4.0) gm/dl Albumin/Globulin Ratio (0.9-2) Beta-Hydroxybutyric Acd 14.46 H (0.2-2.81) mg/dl Specimen Hemolysis Urine Color Urine Appearance (Clear) Urine pH (4.5-7.5) Ur Specific [place] (1.000-1.030) Urine Protein (Negative) Urine Glucose (UA) (Negative) Urine Ketones (Negative) Urine Blood (Negative) Urine Nitrite (Negative) Urine Bilirubin (Negative) Urine Urobilinogen (Negative) Ur Leukocyte Esterase (Negative) Urine WBC (Auto) (0-5) /hpf Urine RBC (Auto) (0-4) /hpf U Hyaline Cast (Auto) (0-5) /lpf U Epithel Cells (Auto) (0-5) /lpf Urine Bacteria (Auto) (Negative) Urine Yeast (None Prsent) Blood Type Antibody Screen Crossmatch 07/25/19 07/24/19 07/24/19 Range/Units 00:45 22:00 20:42 WBC (4.8-10.8) K/uL RBC (4.7-6.1) M/uL Hgb (14.0-18.0) g/dL Hct (42-52) % MCV (80-100) fL MCH (25-34) pg MCHC (32-36) g/dL RDW Std Deviation (36.4-46.3) fL RDW Coeff of Sunni (11.5-14.5) % Plt Count (130-400) K/uL MPV (7.4-10.4) fL Immature Gran % (Auto) % Neut % (Auto) % Lymph % (Auto) % [place] % (Auto) % Eos % (Auto) % Baso % (Auto) % Immature Gran # (Auto) (0.00-0.02) K/uL Neut # (Auto) (1.4-6.5) K/uL Lymph # (Auto) (1.2-3.4) K/uL [place] # (Auto) (0.11-0.59) K/uL Eos # (Auto) (0-0.5) K/uL Baso # (Auto) (0-0.2) K/uL Absolute Nucleated RBC (0-0) K/uL Nucleated RBC % (auto) % Sodium 130 L (136-145) mmol/L Potassium 4.7 (3.5-5.1) mmol/L Chloride 96 L (98-107) mmol/L Carbon Dioxide 20 L (21-32) mmol/L Anion Gap 14.0 H (3-11) BUN 36 H (7-18) mg/dl Creatinine 2.22 H (0.6-1.4) mg/dl Est Cr Clr Drug Dosing 32.4 Est GFR ( Amer) 33.8 Est GFR (Non-Af Amer) 29.2 BUN/Creatinine Ratio 16.0 (10-20) Glucose 346 H* (70-99) mg/dl POC Glucose 296 H 347 H* (70-99) Uric Acid 11.1 H (2.6-7.2) mg/dl Calcium 10.4 H (8.5-10.1) mg/dl Phosphorus 5.5 H D (2.5-4.9) mg/dl Magnesium (1.8-2.4) mg/dl Total Bilirubin (0.2-1) mg/dl Direct Bilirubin (0-0.2) mg/dl AST (15-37) U/L ALT (12-78) U/L Alkaline Phosphatase (45-117) U/L Lactate Dehydrogenase (87-241) U/L Total Protein (6.4-8.2) gm/dl Albumin (3.4-5.0) gm/dl Globulin (2.5-4.0) gm/dl Albumin/Globulin Ratio (0.9-2) Beta-Hydroxybutyric Acd 22.46 H (0.2-2.81) mg/dl Specimen Hemolysis Urine Color Urine Appearance (Clear) Urine pH (4.5-7.5) Ur Specific [place] (1.000-1.030) Urine Protein (Negative) Urine Glucose (UA) (Negative) Urine Ketones (Negative) Urine Blood (Negative) Urine Nitrite (Negative) Urine Bilirubin (Negative) Urine Urobilinogen (Negative) Ur Leukocyte Esterase (Negative) Urine WBC (Auto) (0-5) /hpf Urine RBC (Auto) (0-4) /hpf U Hyaline Cast (Auto) (0-5) /lpf U Epithel Cells (Auto) (0-5) /lpf Urine Bacteria (Auto) (Negative) Urine Yeast (None Prsent) Blood Type Antibody Screen Crossmatch 07/24/19 07/24/19 07/24/19 Range/Units 20:34 16:35 11:21 WBC (4.8-10.8) K/uL RBC (4.7-6.1) M/uL Hgb (14.0-18.0) g/dL Hct (42-52) % MCV (80-100) fL MCH (25-34) pg MCHC (32-36) g/dL RDW Std Deviation (36.4-46.3) fL RDW Coeff of [place] (11.5-14.5) % Plt Count (130-400) K/uL MPV (7.4-10.4) fL Immature Gran % (Auto) % Neut % (Auto) % Lymph % (Auto) % [place] % (Auto) % Eos % (Auto) % Baso % (Auto) % Immature Gran # (Auto) (0.00-0.02) K/uL Neut # (Auto) (1.4-6.5) K/uL Lymph # (Auto) (1.2-3.4) K/uL [place] # (Auto) (0.11-0.59) K/uL Eos # (Auto) (0-0.5) K/uL Baso # (Auto) (0-0.2) K/uL Absolute Nucleated RBC (0-0) K/uL Nucleated RBC % (auto) % Sodium (136-145) mmol/L Potassium (3.5-5.1) mmol/L Chloride (98-107) mmol/L Carbon Dioxide (21-32) mmol/L Anion Gap (3-11) BUN (7-18) mg/dl Creatinine (0.6-1.4) mg/dl Est Cr Clr Drug Dosing Est GFR ( Amer) Est GFR (Non-Af Amer) BUN/Creatinine Ratio (10-20) Glucose (70-99) mg/dl POC Glucose 365 H* 129 H 119 H (70-99) Uric Acid (2.6-7.2) mg/dl Calcium (8.5-10.1) mg/dl Phosphorus (2.5-4.9) mg/dl Magnesium (1.8-2.4) mg/dl Total Bilirubin (0.2-1) mg/dl Direct Bilirubin (0-0.2) mg/dl AST (15-37) U/L ALT (12-78) U/L Alkaline Phosphatase (45-117) U/L Lactate Dehydrogenase (87-241) U/L Total Protein (6.4-8.2) gm/dl Albumin (3.4-5.0) gm/dl Globulin (2.5-4.0) gm/dl Albumin/Globulin Ratio (0.9-2) Beta-Hydroxybutyric Acd (0.2-2.81) mg/dl Specimen Hemolysis Urine Color Urine Appearance (Clear) Urine pH (4.5-7.5) Ur Specific [place] (1.000-1.030) Urine Protein (Negative) Urine Glucose (UA) (Negative) Urine Ketones (Negative) Urine Blood (Negative) Urine Nitrite (Negative) Urine Bilirubin (Negative) Urine Urobilinogen (Negative) Ur Leukocyte Esterase (Negative) Urine WBC (Auto) (0-5) /hpf Urine RBC (Auto) (0-4) /hpf U Hyaline Cast (Auto) (0-5) /lpf U Epithel Cells (Auto) (0-5) /lpf Urine Bacteria (Auto) (Negative) Urine Yeast (None Prsent) Blood Type Antibody Screen Crossmatch 07/24/19 07/24/19 07/24/19 Range/Units 10:36 10:36 10:36 WBC (4.8-10.8) K/uL RBC (4.7-6.1) M/uL Hgb (14.0-18.0) g/dL Hct (42-52) % MCV (80-100) fL MCH (25-34) pg MCHC (32-36) g/dL RDW Std Deviation (36.4-46.3) fL RDW Coeff of [place] (11.5-14.5) % Plt Count (130-400) K/uL MPV (7.4-10.4) fL Immature Gran % (Auto) % Neut % (Auto) % Lymph % (Auto) % [place] % (Auto) % Eos % (Auto) % Baso % (Auto) % Immature Gran # (Auto) (0.00-0.02) K/uL Neut # (Auto) (1.4-6.5) K/uL Lymph # (Auto) (1.2-3.4) K/uL [place] # (Auto) (0.11-0.59) K/uL Eos # (Auto) (0-0.5) K/uL Baso # (Auto) (0-0.2) K/uL Absolute Nucleated RBC (0-0) K/uL Nucleated RBC % (auto) % Sodium 132 L (136-145) mmol/L Potassium 4.1 (3.5-5.1) mmol/L Chloride 100 (98-107) mmol/L Carbon Dioxide 21 (21-32) mmol/L Anion Gap 11.0 (3-11) BUN 25 H (7-18) mg/dl Creatinine 2.46 H (0.6-1.4) mg/dl Est Cr Clr Drug Dosing Not Reportable Est GFR ( Amer) 29.8 Est GFR (Non-Af Amer) 25.7 BUN/Creatinine Ratio 10.3 (10-20) Glucose 112 H (70-99) mg/dl POC Glucose (70-99) Uric Acid 12.3 H (2.6-7.2) mg/dl Calcium 10.4 H (8.5-10.1) mg/dl Phosphorus 3.5 (2.5-4.9) mg/dl Magnesium 1.5 L (1.8-2.4) mg/dl Total Bilirubin 0.9 (0.2-1) mg/dl Direct Bilirubin (0-0.2) mg/dl AST 127 H (15-37) U/L ALT 13 (12-78) U/L Alkaline Phosphatase 120 H (45-117) U/L Lactate Dehydrogenase 1114 H (87-241) U/L Total Protein 6.4 (6.4-8.2) gm/dl Albumin 2.7 L (3.4-5.0) gm/dl Globulin 3.7 (2.5-4.0) gm/dl Albumin/Globulin Ratio 0.7 L (0.9-2) Beta-Hydroxybutyric Acd (0.2-2.81) mg/dl Specimen Hemolysis Urine Color Urine Appearance (Clear) Urine pH (4.5-7.5) Ur Specific [place] (1.000-1.030) Urine Protein (Negative) Urine Glucose (UA) (Negative) Urine Ketones (Negative) Urine Blood (Negative) Urine Nitrite (Negative) Urine Bilirubin (Negative) Urine Urobilinogen (Negative) Ur Leukocyte Esterase (Negative) Urine WBC (Auto) (0-5) /hpf Urine RBC (Auto) (0-4) /hpf U Hyaline Cast (Auto) (0-5) /lpf U Epithel Cells (Auto) (0-5) /lpf Urine Bacteria (Auto) (Negative) Urine Yeast (None Prsent) Blood Type O Positive Antibody Screen NEGATIVE Crossmatch See Detail 07/24/19 Range/Units 10:36 WBC 8.62 (4.8-10.8) K/uL RBC 2.76 L (4.7-6.1) M/uL Hgb 7.6 L (14.0-18.0) g/dL Hct 22.9 L (42-52) % MCV 83.0 (80-100) fL MCH 27.5 (25-34) pg MCHC 33.2 (32-36) g/dL RDW Std Deviation 48.6 H (36.4-46.3) fL RDW Coeff of [place] 16.2 H (11.5-14.5) % Plt Count 127 L (130-400) K/uL MPV 8.2 (7.4-10.4) fL Immature Gran % (Auto) 4.4 % Neut % (Auto) 61.2 % Lymph % (Auto) 17.6 % [place] % (Auto) 12.3 % Eos % (Auto) 0.6 % Baso % (Auto) 3.9 % Immature Gran # (Auto) 0.38 H (0.00-0.02) K/uL Neut # (Auto) 5.27 (1.4-6.5) K/uL Lymph # (Auto) 1.52 (1.2-3.4) K/uL [place] # (Auto) 1.06 H (0.11-0.59) K/uL Eos # (Auto) 0.05 (0-0.5) K/uL Baso # (Auto) 0.34 H (0-0.2) K/uL Absolute Nucleated RBC (0-0) K/uL Nucleated RBC % (auto) % Sodium (136-145) mmol/L Potassium (3.5-5.1) mmol/L Chloride (98-107) mmol/L Carbon Dioxide (21-32) mmol/L Anion Gap (3-11) BUN (7-18) mg/dl Creatinine (0.6-1.4) mg/dl Est Cr Clr Drug Dosing Est GFR ( Amer) Est GFR (Non-Af Amer) BUN/Creatinine Ratio (10-20) Glucose (70-99) mg/dl POC Glucose (70-99) Uric Acid (2.6-7.2) mg/dl Calcium (8.5-10.1) mg/dl Phosphorus (2.5-4.9) mg/dl Magnesium (1.8-2.4) mg/dl Total Bilirubin (0.2-1) mg/dl Direct Bilirubin (0-0.2) mg/dl AST (15-37) U/L ALT (12-78) U/L Alkaline Phosphatase (45-117) U/L Lactate Dehydrogenase (87-241) U/L Total Protein (6.4-8.2) gm/dl Albumin (3.4-5.0) gm/dl Globulin (2.5-4.0) gm/dl Albumin/Globulin Ratio (0.9-2) Beta-Hydroxybutyric Acd (0.2-2.81) mg/dl Specimen Hemolysis Urine Color Urine Appearance (Clear) Urine pH (4.5-7.5) Ur Specific [place] (1.000-1.030) Urine Protein (Negative) Urine Glucose (UA) (Negative) Urine Ketones (Negative) Urine Blood (Negative) Urine Nitrite (Negative) Urine Bilirubin (Negative) Urine Urobilinogen (Negative) Ur Leukocyte Esterase (Negative) Urine WBC (Auto) (0-5) /hpf Urine RBC (Auto) (0-4) /hpf U Hyaline Cast (Auto) (0-5) /lpf U Epithel Cells (Auto) (0-5) /lpf Urine Bacteria (Auto) (Negative) Urine Yeast (None Prsent) Blood Type Antibody Screen Crossmatch PG Care Time/CCT Total # of Minutes Spent Total Time Spent with Patient: Total time spent is greater than 50% in coordination of care (as documented) at patient's floor/unit and/or counseling patient:
--- NOTE | 2019-07-25 10:56 | Nephrology Progress Note ---
Date of Service July 25, 2019 Assessment & Plan (1) Diffuse large B cell lymphoma: - Admitted for R-CHOP chemotherapy - Oncology notes reviewed (2) Tumor lysis syndrome: - Continue normosol @ 150 ml/hr - Document I/O's - Monitor labs q 8 hrs - Rasburicase given this AM (3) Acute renal failure: - IVF - Document I/O's - Clinically consistent with TLS/ATN - TLS labs q 8 hours - Renal US pending - No current indication for COMMUNITY LIAISON and kidney function is thankfully stable since yesterday. However, Reji is high risk for progression given ATN/TLS. I addressed this concern with the patient this morning. Dialysis is not available at [facility] for the remainder of the weekend and he is aware this will require transfer to another facility if indicated during treatment. (4) Hypercalcemia: - In setting of malignancy - IVF to encourage UOP (5) Elevated blood uric acid level: - Allopurinol and rasburicase (6) Anemia: - 2 u PRBC provided yesterday (7) Diabetes mellitus: - Januvia and meformin held Subjective No acute events overnight. Reji feels reasonably well this AM. Tolerating IVF. No fevers or chills. Appetite poor. Review of Systems Review of Systems: All systems reviewed & are unremarkable except as noted in HPI & below Physical Exam Constitutional: well developed; no acute distress Eyes: no scleral abnormality and no corneal abnormality ENMT: Mouth: no oral mucosal abnormality and oral mucous membranes not dry Neck: normal visual inspection and trachea midline Respiratory: normal respiratory effort Auscultation: + rales Cardiovascular: Rate/Rhythm: regular rate Heart Sounds: normal S1 and normal S2 Extremities: no edema Musculoskeletal: Extremities: no cyanosis and no clubbing Skin: normal turgor; no lesions Neurologic: Motor/Sensory: no tremor and no asterixis Psychiatric: Orientation: alert and oriented x 3 Results & Data Vital Signs (Past 12 Hours) Vital Signs Temp Pulse Pulse Resp BP BP Pulse Ox 07/25/19 09:15 85 18 133/65 07/25/19 08:45 90 20 140/65 07/25/19 08:15 36.3 C L 86 18 125/72 07/25/19 07:32 36.4 C L 77 19 130/67 94 07/25/19 03:40 95 H 07/25/19 02:32 36.4 C L 90 17 132/73 94 07/24/19 23:45 36.7 C 97 H 21 145/80 H 93 Laboratory Results Laboratory Results - last 24 hr 07/24/19 07/24/19 07/24/19 10:36 10:36 10:36 WBC 8.62 RBC 2.76 L Hgb 7.6 L Hct 22.9 L MCV 83.0 MCH 27.5 MCHC 33.2 RDW Std Deviation 48.6 H RDW Coeff of Sunni 16.2 H Plt Count 127 L MPV 8.2 Immature Gran % (Auto) 4.4 Neut % (Auto) 61.2 Lymph % (Auto) 17.6 [place] % (Auto) 12.3 Eos % (Auto) 0.6 Baso % (Auto) 3.9 Immature Gran # (Auto) 0.38 H Neut # (Auto) 5.27 Lymph # (Auto) 1.52 [place] # (Auto) 1.06 H Eos # (Auto) 0.05 Baso # (Auto) 0.34 H Absolute Nucleated RBC Nucleated RBC % (auto) Sodium 132 L Potassium 4.1 Chloride 100 Carbon Dioxide 21 Anion Gap 11.0 BUN 25 H Creatinine 2.46 H Est Cr Clr Drug Dosing Not Reportable Est GFR ( Amer) 29.8 Est GFR (Non-Af Amer) 25.7 BUN/Creatinine Ratio 10.3 Glucose 112 H POC Glucose Uric Acid 12.3 H Calcium 10.4 H Phosphorus 3.5 Magnesium 1.5 L Total Bilirubin 0.9 Direct Bilirubin AST 127 H ALT 13 Alkaline Phosphatase 120 H Lactate Dehydrogenase Total Protein 6.4 Albumin 2.7 L Globulin 3.7 Albumin/Globulin Ratio 0.7 L Beta-Hydroxybutyric Acd Specimen Hemolysis Urine Color Urine Appearance Urine pH Ur Specific [place] Urine Protein Urine Glucose (UA) Urine Ketones Urine Blood Urine Nitrite Urine Bilirubin Urine Urobilinogen Ur Leukocyte Esterase Urine WBC (Auto) Urine RBC (Auto) U Hyaline Cast (Auto) U Epithel Cells (Auto) Urine Bacteria (Auto) Urine Yeast Blood Type O Positive Antibody Screen NEGATIVE Crossmatch See Detail 07/24/19 07/24/19 07/24/19 10:36 11:21 16:35 WBC RBC Hgb Hct MCV MCH MCHC RDW Std Deviation RDW Coeff of [place] Plt Count MPV Immature Gran % (Auto) Neut % (Auto) Lymph % (Auto) [place] % (Auto) Eos % (Auto) Baso % (Auto) Immature Gran # (Auto) Neut # (Auto) Lymph # (Auto) [place] # (Auto) Eos # (Auto) Baso # (Auto) Absolute Nucleated RBC Nucleated RBC % (auto) Sodium Potassium Chloride Carbon Dioxide Anion Gap BUN Creatinine Est Cr Clr Drug Dosing Est GFR ( Amer) Est GFR (Non-Af Amer) BUN/Creatinine Ratio Glucose POC Glucose 119 H 129 H Uric Acid Calcium Phosphorus Magnesium Total Bilirubin Direct Bilirubin AST ALT Alkaline Phosphatase Lactate Dehydrogenase 1114 H Total Protein Albumin Globulin Albumin/Globulin Ratio Beta-Hydroxybutyric Acd Specimen Hemolysis Urine Color Urine Appearance Urine pH Ur Specific [place] Urine Protein Urine Glucose (UA) Urine Ketones Urine Blood Urine Nitrite Urine Bilirubin Urine Urobilinogen Ur Leukocyte Esterase Urine WBC (Auto) Urine RBC (Auto) U Hyaline Cast (Auto) U Epithel Cells (Auto) Urine Bacteria (Auto) Urine Yeast Blood Type Antibody Screen Crossmatch 07/24/19 07/24/19 07/24/19 20:34 20:42 22:00 WBC RBC Hgb Hct MCV MCH MCHC RDW Std Deviation RDW Coeff of [place] Plt Count MPV Immature Gran % (Auto) Neut % (Auto) Lymph % (Auto) [place] % (Auto) Eos % (Auto) Baso % (Auto) Immature Gran # (Auto) Neut # (Auto) Lymph # (Auto) [place] # (Auto) Eos # (Auto) Baso # (Auto) Absolute Nucleated RBC Nucleated RBC % (auto) Sodium 130 L Potassium 4.7 Chloride 96 L Carbon Dioxide 20 L Anion Gap 14.0 H BUN 36 H Creatinine 2.22 H Est Cr Clr Drug Dosing 32.4 Est GFR ( Amer) 33.8 Est GFR (Non-Af Amer) 29.2 BUN/Creatinine Ratio 16.0 Glucose 346 H* POC Glucose 365 H* 347 H* Uric Acid 11.1 H Calcium 10.4 H Phosphorus 5.5 H D Magnesium Total Bilirubin Direct Bilirubin AST ALT Alkaline Phosphatase Lactate Dehydrogenase Total Protein Albumin Globulin Albumin/Globulin Ratio Beta-Hydroxybutyric Acd 22.46 H Specimen Hemolysis Urine Color Urine Appearance Urine pH Ur Specific [place] Urine Protein Urine Glucose (UA) Urine Ketones Urine Blood Urine Nitrite Urine Bilirubin Urine Urobilinogen Ur Leukocyte Esterase Urine WBC (Auto) Urine RBC (Auto) U Hyaline Cast (Auto) U Epithel Cells (Auto) Urine Bacteria (Auto) Urine Yeast Blood Type Antibody Screen Crossmatch 07/25/19 07/25/19 07/25/19 00:45 04:03 04:03 WBC 7.99 RBC 3.06 L Hgb 8.6 L Hct 25.8 L MCV 84.3 MCH 28.1 MCHC 33.3 RDW Std Deviation 48.3 H RDW Coeff of Sunni 15.8 H Plt Count 115 L MPV 8.7 Immature Gran % (Auto) Neut % (Auto) Lymph % (Auto) [place] % (Auto) Eos % (Auto) Baso % (Auto) Immature Gran # (Auto) Neut # (Auto) Lymph # (Auto) [place] # (Auto) Eos # (Auto) Baso # (Auto) Absolute Nucleated RBC 0.02 H Nucleated RBC % (auto) 0.3 Sodium 131 L Potassium 4.5 Chloride 97 L Carbon Dioxide 24 Anion Gap 10.0 BUN 39 H Creatinine 2.15 H Est Cr Clr Drug Dosing 33.5 Est GFR ( Amer) 35.1 Est GFR (Non-Af Amer) 30.3 BUN/Creatinine Ratio 18.2 Glucose 314 H* POC Glucose 296 H Uric Acid 10.9 H Calcium 10.0 Phosphorus 5.6 H Magnesium 2.1 Total Bilirubin 0.6 Direct Bilirubin 0.3 H AST 101 H ALT 14 Alkaline Phosphatase 105 Lactate Dehydrogenase Total Protein 5.7 L Albumin 2.4 L Globulin Albumin/Globulin Ratio Beta-Hydroxybutyric Acd 14.46 H Specimen Hemolysis Urine Color Urine Appearance Urine pH Ur Specific [place] Urine Protein Urine Glucose (UA) Urine Ketones Urine Blood Urine Nitrite Urine Bilirubin Urine Urobilinogen Ur Leukocyte Esterase Urine WBC (Auto) Urine RBC (Auto) U Hyaline Cast (Auto) U Epithel Cells (Auto) Urine Bacteria (Auto) Urine Yeast Blood Type Antibody Screen Crossmatch 07/25/19 07/25/19 07/25/19 04:03 05:25 07:34 WBC RBC Hgb Hct MCV MCH MCHC RDW Std Deviation RDW Coeff of [place] Plt Count MPV Immature Gran % (Auto) Neut % (Auto) Lymph % (Auto) [place] % (Auto) Eos % (Auto) Baso % (Auto) Immature Gran # (Auto) Neut # (Auto) Lymph # (Auto) [place] # (Auto) Eos # (Auto) Baso # (Auto) Absolute Nucleated RBC Nucleated RBC % (auto) Sodium Potassium Chloride Carbon Dioxide Anion Gap BUN Creatinine Est Cr Clr Drug Dosing Est GFR ( Amer) Est GFR (Non-Af Amer) BUN/Creatinine Ratio Glucose POC Glucose 333 H* Uric Acid Calcium Phosphorus Magnesium Total Bilirubin Direct Bilirubin AST ALT Alkaline Phosphatase Lactate Dehydrogenase 1050 H Total Protein Albumin Globulin Albumin/Globulin Ratio Beta-Hydroxybutyric Acd Specimen Hemolysis Urine Color Yellow Urine Appearance Clear Urine pH 5.0 Ur Specific [place] 1.023 Urine Protein 1+ H Urine Glucose (UA) 3+ H Urine Ketones Trace H Urine Blood 3+ H Urine Nitrite Negative Urine Bilirubin Negative Urine Urobilinogen Negative Ur Leukocyte Esterase Negative Urine WBC (Auto) 1-5 Urine RBC (Auto) 10-30 H U Hyaline Cast (Auto) 5-10 H U Epithel Cells (Auto) >30 H Urine Bacteria (Auto) Negative Urine Yeast Budding A Blood Type Antibody Screen Crossmatch 07/25/19 07:35 WBC RBC Hgb Hct MCV MCH MCHC RDW Std Deviation RDW Coeff of [place] Plt Count MPV Immature Gran % (Auto) Neut % (Auto) Lymph % (Auto) [place] % (Auto) Eos % (Auto) Baso % (Auto) Immature Gran # (Auto) Neut # (Auto) Lymph # (Auto) [place] # (Auto) Eos # (Auto) Baso # (Auto) Absolute Nucleated RBC Nucleated RBC % (auto) Sodium Potassium Chloride Carbon Dioxide Anion Gap BUN Creatinine Est Cr Clr Drug Dosing Est GFR ( Amer) Est GFR (Non-Af Amer) BUN/Creatinine Ratio Glucose POC Glucose 353 H* Uric Acid Calcium Phosphorus Magnesium Total Bilirubin Direct Bilirubin AST ALT Alkaline Phosphatase Lactate Dehydrogenase Total Protein Albumin Globulin Albumin/Globulin Ratio Beta-Hydroxybutyric Acd Specimen Hemolysis Urine Color Urine Appearance Urine pH Ur Specific [place] Urine Protein Urine Glucose (UA) Urine Ketones Urine Blood Urine Nitrite Urine Bilirubin Urine Urobilinogen Ur Leukocyte Esterase Urine WBC (Auto) Urine RBC (Auto) U Hyaline Cast (Auto) U Epithel Cells (Auto) Urine Bacteria (Auto) Urine Yeast Blood Type Antibody Screen Crossmatch PG Care Time/CCT Total # of Minutes Spent Total Time Spent with Patient: Total time spent is greater than 50% in coordination of care (as documented) at patient's floor/unit and/or counseling patient:
--- NOTE | 2019-07-25 12:14 | Pharmacy Report ---
Pharmacy Glycemic Short Note 2 - Date of Service July 25, 2019 - Glycemic Short BSG Results (Last 24 hours): 07/24/19 07/24/19 07/24/19 16:35 20:34 20:42 Glucose POC Glucose 129 H 365 H* 347 H* 07/24/19 07/25/19 07/25/19 22:00 00:45 04:03 Glucose 346 H* 314 H* POC Glucose 296 H 07/25/19 07/25/19 07/25/19 07:34 07:35 11:26 Glucose POC Glucose 333 H* 353 H* 306 H* 07/25/19 11:27 Glucose POC Glucose 334 H* OUTPATIENT ANTIDIABETIC REGIMEN: * Metformin + Januvia ASSESSMENT: * 68yo T2DM with SEVERE steroid induced hyperglycemia * A1c is most likely not totally reliable based on patient's altered RBC turnover rate secondary to chemo * Pt received prednisone 100mg PO yesterday * Pt received 42 units of insulin with this with inadequate control, BSGs [phone] * Pt will receive prednisone 100mg PO today + will receive dexamethasone 20mg PO x 1 as chemo pre-treat * Will double insulin dosing from yesterday to be consistent with doubling of steroid dosing (20mg PO dxm = ~ 130 mg of PO prednisone) * BSGs all > 300 since last evening. Will also tighten CF/CR and add overnight checks + coverage at 000 & 0400 with NovoLog PLAN FOR INPATIENT GLYCEMIC CONTROL: * Hold outpatient oral diabetes medications * Basal insulin * NPH 40 units SQ x 1 dose this AM for severe hyperglycemia then, 30 units SQ BID * Bolus insulin * NovoLog per scale ACHS or Q6hrs while NPO also, overnight checks + coverage at 000 & 0400 * Goal Range: Low 110 mg/dL - High 140 mg/dL * Correction Factor: 15 mg/dL/unit * Nutritional / Prandial insulin per carb ratio of 1 unit per 5 grams CHO consumed * Change diet from regular to DMT2
--- NOTE | 2019-07-25 12:31 | Ultrasound Report ---
ULTRASOUND KIDNEYS AND BLADDER CLINICAL HISTORY: Acute renal insufficiency. COMPARISON STUDY: Abdominal CT dated 06/16/2019. TECHNIQUE: Real-time, grayscale, and color flow sonography of the kidneys and bladder is performed. I mages are reviewed in the transverse and longitudinal planes. FINDINGS: Kidneys: The kidneys are normal in size and echotexture. The right kidney measures 11.1 cm in length and the left kidney measures 11.6 cm in length. There is no hydronephrosis. No shadowing renal calcul i are identified. Right renal lesions seen by CT could not be visualized by ultrasound. No perinephri c fluid is identified. Bladder: The bladder is normal as visualized. Ureteral jets were not seen. Upper abdomen: The liver is heterogeneous. The spleen is enlarged and heterogeneous. Splenic masses a re partially visualized and were better assessed on the recent abdominal CT. IMPRESSION: 1. The kidneys are normal in size and without hydronephrosis. 2. Right renal mass lesions seen by CT are not apparent by ultrasound. 3. The bladder was normal as imaged. 4. The spleen is enlarged and splenic mass lesions are noted. These were also better assessed on the recent CT scan. Electronically signed by: Larry Mckeon M.D. 07/25/2019 12:30 PM
[2019-07-25 12:36] LABS: BUN Creatinine Ratio 19.6 (10-20); Calcium 10.1 mg/dl (8.5-10.1); Creatinine Clr Calc Pharmacy 32.3 ml/min; Est GFR (African American) 33.6; Potassium 4.1 mmol/L (3.5-5.1); Uric Acid 9.7 mg/dl (2.6-7.2)
[2019-07-25 12:37] LABS: Phosphorus 5.2 mg/dl (2.5-4.9)
[2019-07-25] MEDS ORDERED: ONDANSETRON 8 MG TABLET PO SCH (13:00)
[2019-07-25] MEDS ORDERED: NORMOSOL R IV SCH (13:29)
[2019-07-25] MEDS ORDERED: SODIUM BICARBONATE IV SCH (13:29)
[2019-07-25] MEDS ORDERED: DOXORUBICIN HCL IV SCH (13:30)
[2019-07-25] MEDS ORDERED: VINCRISTINE SULFATE IV SCH (13:45)
[2019-07-25] MEDS ORDERED: CYCLOPHOSPHAMIDE IV SCH (14:00)
[2019-07-25] MEDS ORDERED: SODIUM BICARBONATE 8.4% 75 MEQ in SODIUM CHLORIDE 0.45 % 1,000 ML IV SCH (14:00)
--- NOTE | 2019-07-25 14:16 | Discharge Summary ---
Date of Service July 25, 2019 Admission HPI Per Admitting Provider Mr. Maria is a 68 year old with past medical history of hypothyroidism, HLD, Type II DM and recently diagnosed diffuse large B-cell Lymphoma who presented with fatigue and loss of appetite. Pt. was initially evaluated by hematology in June 2019 with B symptoms. He had diffuse lymphadenopathy and splenic lesions on CT scan. Bone marrow biopsy along with lymph node biopsy confirmed DLBCL diagnosis. He is status post port placement for chemotherapy administration. He was evaluated in the clinic by Dr. Angulo and referred for direct admission/urgent chemotherapy. Pt. states he has had increased fatigue/loss of appetite over the last few weeks since diagnosis. Oral intake is very poor -- minimal fluid intake at home. Last BM was on Saturday prior to mediport placement. Pt. has had a rash on both arms over the last month -- states rash is non-pruritic but has been increasing over last few days. Denies nausea/vomiting, abd pain, fever/chills, dysuria or hematuria, urinary retention, LE edema, headache, URI symptoms. He will be admitted for cycle 1 of R-CHOP chemotherapy. Admission lab work was consistent with TLS requiring PO Allopurinol and IV fluid hydration. Admission Exam Per Admitting Provider General: Frail appearing male, no acute distress. HEENT: NC/AT; PERRLA with EOMI; [place] conjunctiva, MMM. No erythema of posterior pharynx Neck: Supple and nontender Cardiac: RRR Lungs: CTA bilaterally Abdomen: Bowel normoactive X 4; Nontender to palpation Extremities: Warm. No edema present Neuro: No focal weakness Skin: Erythematous papules scattered on bilat upper extremities, some lesions with ring like appearance. Principal Diagnosis Tumor Lysis Syndrome, Acute Renal Failure, Anion gap metabolic acidosis, Hyperphosphatemia, Hyperuricemia Discharge Exam General: Frail appearing male. HEENT: NC/AT; PERRLA with EOMI; [place] conjunctiva, MMM. No erythema of posterior pharynx Neck: Supple and nontender Cardiac: RRR Lungs: on 2L via NC; mild crackles noted in bilat lung bases. Abdomen: Bowel normoactive X 4; Nontender to palpation Extremities: Warm. No edema present Neuro: No focal weakness Skin: Erythematous papules scattered on bilat upper extremities. Discharge Data Allergies Allergy/AdvReac Type Severity Reaction Status Date / Time No Known Drug Allergies Allergy Unknown . Verified 07/21/19 08:04 Consultations 07/24/19 10:20 Consult Oncology Routine 07/24/19 10:26 Consult Case Management - Discharge Planning Routine 07/24/19 12:55 Consult Nephrology Routine Ordered Studies 07/25/19 07:00 US renal/blad retro comp Routine Hospital Course (1) Diffuse large B cell lymphoma: Recently diagnosed DLBCL -- admitted for R-CHOP chemotherapy. Did receive Rituximab this morning, further chemotherapy was held. Received Prednisone 100 mg daily on 07/24 and 07/25 prior to transfer. See TLS labs below - transfer to [facility] for further care and evaluation. Oncology consulted, appreciate input. Will need Neulasta injection vs. Neupogen at [facility] following completion of CHOP chemotherapy. (2) Tumor lysis syndrome: In setting of DLBCL -- TLS noted on admission labs. Uric acid, Creatinine, Phos and LDH remain elevated. Normosol at 150 cc/hr. Most recent labs at 11:50 showed anion gap metabolic acidosis -- converted fluids to 0.45% NS + sodium bicarb 75 mEq at 150 cc/hr. Allopurinol 300 mg daily; received Rasburicase 3 mg IV (usual dose of 6 mg IV, had limited supply in the pharmacy) x 1 dose this morning. Nephrology recommended transfer to [facility] due to concern for worsening TLS -- HD is not available at [facility] on the weekends. (3) Acute renal failure: In setting of TLS and partially related to dehydration. Creatinine peaked at 2.46, remained elevated >2.2 following IV fluid hydration, allopurinol; baseline ~1.2-1.3. On IV fluids at 150 cc/hr - monitor for volume overload, did have pulm congestion and pleural effusions noted on CXR from 07/21. Monitored labs q8hr. (4) Hypercalcemia: In setting of malignancy; level improved with IV fluid hydration. (5) Elevated blood uric acid level: In setting of TLS -- uric acid level was 12.3, slightly improved to 10.9. Allopurinol 300 mg daily and IV fluids. Also received Rasburicase 3 mg IV (limited supply availabe in pharmacy) Level was <10 on day of transfer. (6) Hypoxia: Has been requiring 2L via NC. CXR on 07/21 showed pulm vascular congestion, left>right pleural effusions. Has been requiring aggressive IV fluids due to TLS, will need to monitor for volume overload. Consider f/u CXR vs. CT scan if necessary. (7) Anemia: In setting of DLBCL. Hgb 7.6, received 2 units on 07/24. Hgb was 8.6 on day of transfer. (8) Thrombocytopenia: Plt count slowly trending down. Received Heparin ppx, hold if plt <50K. (9) Elevated LFTs: Elevated AST and Alk Phos. (10) Diabetes mellitus: Most recent A1C was 10.2 in May 2019. Held home oral agents. Consulted pharmacy - currently treating steroid induced hyperglycemia. (11) Hyperlipidemia: Continued statin as prescribed (monitor LFTs closely) (12) Hypothyroidism: Continued Synthroid 100 mcg daily. TSH was 10.2 in Jun; hold repeat level due to acute illness. (13) Electrolyte abnormality: Replace as needed - caution with KCl replacement for hypokalemia in setting of TLS. (14) DVT prophylaxis: SCDs; Heparin q12hr (hold if plt <50K) Will be transferred to [facility] in setting of acute renal failure with anion gap metabolic acidosis, tumor lysis syndrome -- lack of resources available at [facility] (including limited supply of Rasburicase and HD initiation being limited to M-F schedule). Discussed transfer with Dr. Buck and Joi, charge nurse. Total Time Total Time Spent Total Time Spent (In Minutes): >30 minutes Total Time Includes: Examination of the Patient, Discharge Planning, Medication Reconciliation, Communication With Other Providers and Other Discharge Plan Discharge Items Patient Disposition: Transfer Acute Care Hospital Reason For Visit: LARGE B CELL LYMPHOMA Discharge Diagnosis: Tumor Lysis Syndrome, Acute renal failure with metabolic acidosis, Hyperuricemia, Hyperphosphatemia, DLBCL Activity: As commented below Non-emergency contact: Oncologist Call non-emergency contact if: you have any medication questions Follow-up/Referrals: ProBlayne MD [Primary Care Provider] - Diet: Regular Addtl Attending Provider Instructions: 1. You will be transferred to [facility]. Pending Studies at Discharge: No Stand-Alone Forms: My [facility] Skilled Items Patient informed of condition?: Yes DNR: No Discharge Level of Care: Other Communicable Disease: No Discharge Prognosis: Deteriorating Lines: Peripheral IV Urinary Catheter: No Medications and DC Order Prescriptions: New prednisone 50 mg Tablet 100 mg PO DAILY Qty: 3 RF: 0 allopurinol 300 mg Tablet 300 mg PO DAILY Qty: 1 RF: 0 Continued simvastatin 40 mg tablet 40 mg PO HS RF: 0 levothyroxine 100 mcg tablet 100 mcg PO QAM RF: 0 metformin 500 mg tablet extended release 24 hr 1,000 mg PO QPM RF: 0 Januvia 100 mg tablet 100 mg PO QAM RF: 0 Discontinued cephalexin [Keflex] 500 mg capsule 500 mg PO QID 7 Days Qty: 28 RF: 0 triamcinolone acetonide [Nasacort] 55 mcg Aerosol,[place] 2 spray INTRANASAL DAILY PRN (Reason: Congestion) RF: 0 Discharge Orders: Discharge Order (Routine); Ordered 07/25/19 Ordered By: Negrita Walter Admission Data Admit Date/Time: 07/24/19 10:04 Attending Provider: Luis Carlos Serrano Admit Provider: Radha Parmar Primary Care Provider: Blayne Webber Other Providers: Tahir Cruz ; Magdiel Angulo V Other Interventions: Discharge Summary Assessment (RN) Last Done: 07/25/19 17:29 DC Date/Time DO NOT enter until pt leaves facility: 07/25/19 18:32 Supervising Physician Co-Signing Physician Notes Patient was interviewed and examined at bedside. I reviewed above note and agree with it. I answered all of the patient's questions. My exam did not differ from the exam noted on this document. Patient has tumor lysis syndrome, will require hemodialysis emergently. Patient will need to transferred to outside hospital. Will discharge today. His was at bedside and she was updated.
[2019-07-25] MEDS ORDERED: INSULIN HUMAN NPH SC SCH (17:00)
[2019-07-26] MEDS ORDERED: INSULIN ASPART 100 UNITS/ML 3 ML PEN SC SCH
== END 2019-07-25 18:32 | disposition short-term general hospital (02) | DRG 846 ==
LOC: 2E 10:04 → SUATTDRO 10:04 → 2W 07-25 08:58

== ENCOUNTER 2019-11-05 10:04 | Inpatient (IN) ==
--- NOTE | 2019-11-05 10:28 | Emergency Department Note ---
Entered by Nader Perez acting as a scribe for History of Present Illness General Chief complaint: Referred by Doctor Stated complaint: DIZZY, ALMOST FAINTED - REF [facility] Time Seen by Provider: 11/05/19 10:19 Source: patient Limitations: no limitations History of Present Illness Onset (ago): hour(s) (this morning) Location: head Pain Consistency: + constant Maximum Pain Intensity: 0 Quality: + constant Associated symptoms: + denies other symptoms (blood in urine, blood in stool, ) and + other (dizzy, pasty, white); no chest pain, no fever/chills and no nausea/vomiting The patient is a 69 year old male who presents to the Emergency Room with complaints of weakness starting this morning. The patient's states the p atient has lymphoma and gets chemotherapy at [facility]. She states the patient felt fine last night. She notes the patient got pasty, dizzy, and white this morning after he ate breakfast. She notes the patient was supposed to get blood tests today, but was instructed to go to the ED because of his symptoms. The patient states he last got his blood checked 3 days ago and it was 7.4. The patient denies having fevers, blood in his urine, blood in his stool, chest pain, nausea, and vomiting. The patient states his PCP is Dr. Webber. Home Medications Home Medications Medication Instructions Recorded Confirmed Type levothyroxine [Synthroid] 100 mcg PO QAM 07/08/19 11/05/19 History simvastatin 40 mg PO HS 07/08/19 11/05/19 History FreeStyle Dorie 14 Day Sensor #2 ea NS 08/11/19 09/28/19 Rx insulin aspart U-100 100 unit/mL 10 units SQ TIDM 08/11/19 11/05/19 History (3 mL) subcutaneous pen insulin detemir U-100 100 unit/mL 10 units SQ HS 08/11/19 11/05/19 History subcutaneous solution pantoprazole 40 mg tablet,delayed 40 mg PO QAM 08/11/19 11/05/19 History release acyclovir 400 mg tablet 400 mg PO BID 09/23/19 11/05/19 History ferrous sulfate 325 mg (65 mg 325 mg PO QAM 09/23/19 11/05/19 History iron) tablet gqqbbmtb-tvl-trjby acid 300 1 tab PO QAM 09/23/19 11/05/19 History mcg-lycopene 600 mcg-lutein 300 mcg tablet prednisone 50 mg PO BID 09/25/19 11/05/19 History sennosides-docusate sodium 2 tab PO BID PRN 09/25/19 11/05/19 History [Senokot-S] levofloxacin 500 mg PO QAM 11/05/19 11/05/19 History Allergies Allergy/AdvReac Type Severity Reaction Status Date / Time No Known Allergies Allergy Verified 11/05/19 11:28 Past Med/Surg History Medical History Anemia Anemia (Chronic) Diabetes mellitus (Chronic) type 2, not well controlled Hearing deficit Hypercholesterolemia Hypothyroidism (Chronic) Lymphoma SOB (shortness of breath) on exertion Surgical History History of colonoscopy S/P lymph node biopsy (07/09/19) Left Marla Incisional Lymph Node Biopsy Dr. 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 and A total of 10 systems reviewed and were otherwise negative Physical Exam Vital Signs Vital Signs - 24 hr 11/05/19 10:15 11/05/19 10:24 11/05/19 11:00 Temperature 36.3 C L 36.6 C Temperature Source Oral Oral Pulse Rate 96 H 75 Pulse Rate from SpO2 Sensor 74 Respiratory Rate 18 15 Respiratory Effort / Characteristics Non-Labored Spontaneous Respiratory Depth Normal Respiratory Pattern Regular Blood Pressure 115/75 133/77 Blood Pressure Mean 88 99 Blood Pressure Position Sitting Pulse Oximetry 97 96 96 Oxygen Delivery Method Room Air Room Air Sepsis Recent Fever Within 48 Hours No Sepsis New/Unexplained Change in Mental Status No Sepsis Action Taken by Nursing No Action Required 11/05/19 11:15 11/05/19 11:30 11/05/19 11:45 Temperature Temperature Source Pulse Rate 73 73 78 Pulse Rate from SpO2 Sensor 73 73 78 Respiratory Rate 17 14 16 Respiratory Effort / Characteristics Respiratory Depth Respiratory Pattern Blood Pressure 133/78 144/77 H 149/72 H Blood Pressure Mean 108 118 102 Blood Pressure Position Pulse Oximetry 95 96 95 Oxygen Delivery Method Sepsis Recent Fever Within 48 Hours Sepsis New/Unexplained Change in Mental Status Sepsis Action Taken by Nursing 11/05/19 12:00 11/05/19 12:15 11/05/19 12:30 Temperature Temperature Source Pulse Rate 74 83 84 Pulse Rate from SpO2 Sensor 68 83 82 Respiratory Rate 14 14 15 Respiratory Effort / Characteristics Respiratory Depth Respiratory Pattern Blood Pressure 148/81 H 142/80 H 159/80 H Blood Pressure Mean 115 103 117 Blood Pressure Position Pulse Oximetry 98 97 97 Oxygen Delivery Method Sepsis Recent Fever Within 48 Hours Sepsis New/Unexplained Change in Mental Status Sepsis Action Taken by Nursing 11/05/19 12:45 11/05/19 13:00 11/05/19 13:15 Temperature Temperature Source Pulse Rate 79 76 88 Pulse Rate from SpO2 Sensor 77 77 Respiratory Rate 13 14 19 Respiratory Effort / Characteristics Respiratory Depth Respiratory Pattern Blood Pressure 144/83 H 150/85 H 151/96 H Blood Pressure Mean 105 109 108 Blood Pressure Position Pulse Oximetry 96 95 Oxygen Delivery Method Sepsis Recent Fever Within 48 Hours Sepsis New/Unexplained Change in Mental Status Sepsis Action Taken by Nursing 11/05/19 13:30 11/05/19 13:45 11/05/19 14:00 Temperature Temperature Source Pulse Rate 86 79 77 Pulse Rate from SpO2 Sensor Respiratory Rate 20 16 15 Respiratory Effort / Characteristics Respiratory Depth Respiratory Pattern Blood Pressure 163/96 H 144/118 H 165/99 H Blood Pressure Mean 121 125 133 Blood Pressure Position Pulse Oximetry Oxygen Delivery Method Sepsis Recent Fever Within 48 Hours Sepsis New/Unexplained Change in Mental Status Sepsis Action Taken by Nursing 11/05/19 14:15 Temperature Temperature Source Pulse Rate 80 Pulse Rate from SpO2 Sensor Respiratory Rate 14 Respiratory Effort / Characteristics Respiratory Depth Respiratory Pattern Blood Pressure 150/80 H Blood Pressure Mean 109 Blood Pressure Position Pulse Oximetry Oxygen Delivery Method Sepsis Recent Fever Within 48 Hours Sepsis New/Unexplained Change in Mental Status Sepsis Action Taken by Nursing GENERAL: The patient is awake and alert. He is somewhat listless appearing but otherwise comfortable. EYES: The conjunctivae are pale. The pupils are round and reactive. EARS, NOSE, MOUTH AND THROAT: The nose is without any evidence of any deformity. Mucous membranes are moist. Tongue is midline. NECK: The neck is nontender and supple. RESPIRATORY: Normal respiratory effort is noted there is no evidence of wheezing rhonchi or rales CARDIOVASCULAR: Regular rate and rhythm noted there no murmurs rubs or gallops normal S1 normal S2. GASTROINTESTINAL: The abdomen is soft. Abdomen is nontender. MUSCULOSKELETAL/EXTREMITIES: There is no evidence of gross deformity full range of motion is noted in the hips and shoulders. SKIN: There is no obvious evidence of any rash. Pedal edema was noted bilaterally. NEUROLOGIC: Patient is awake and oriented to person place and situation. Course Course 1023: The patient was evaluated in room B6, and a complete history and physical examination were performed. 1249: I discussed the patient's case with Dr. Nicole - [facility]. She will evaluate the patient for further management. Administered Medications Insulin Aspart (Novolog Flexpen) 0 units SC ACHS EDEN Stop: 12/05/19 16:29 Last Admin: 11/05/19 17:14 Dose: 2 units Documented by: [id number] Cosigned by: [id number] Discontinued Medications Cefepime HCl (Maxipime) 2,000 mg in 20 mls @ 5 mls/min IV NOW STA; Protocol Stop: 11/05/19 11:57 Last Admin: 11/05/19 12:11 Dose: 5 mls/min Documented by: [id number] Sodium Chloride (Nss) 500 mls @ 999 mls/hr IV .Q31M ONE Stop: 11/05/19 12:30 Last Infusion: 11/05/19 12:55 Dose: 0 mls/hr Documented by: [id number] Admin: 11/05/19 12:13 Dose: 999 mls/hr Documented by: [id number] Magnesium Sulfate/Dextrose (Magnesium Sulfate / D5w) 1 gm in 100 mls @ 100 mls/hr IV ONE ONE Stop: 11/05/19 13:11 Last Infusion: 11/05/19 14:11 Dose: 0 mls/hr Documented by: [id number] Admin: 11/05/19 12:40 Dose: 100 mls/hr Documented by: [id number] Medical Decision Making Differential Diagnosis Differential Diagnosis includes but is not limited to dehydration, stroke, anemia, hypoglycemia, hyponatremia, hypernatremia, urinary tract infection, pneumonia, bronchitis, sepsis, gastroenteritis, additional abdominal pathology, metabolic abnormalities and infections. Medical Records Attestation: I reviewed the patient's medical records. Home Medications Current Medication List: was personally reviewed by me Laboratory Data Attestation: I reviewed the patient's lab results. Result diagrams: 11/05/19 10:56 11/05/19 10:56 Lab Results 11/05/19 11/05/19 11/05/19 Range/Units 10:39 10:56 10:56 WBC 0.05 L* (4.8-10.8) K/uL RBC 2.80 L (4.7-6.1) M/uL Hgb 8.4 L (14.0-18.0) g/dL Hct 25.2 L (42-52) % MCV 90.0 (80-100) fL MCH 30.0 (25-34) pg MCHC 33.3 (32-36) g/dL RDW Std Deviation 58.2 H (36.4-46.3) fL RDW Coeff of Sunni 17.7 H (11.5-14.5) % Plt Count 24 L* (130-400) K/uL MPV 8.8 (7.4-10.4) fL Immature Gran % (Auto) Cancelled Neut % (Auto) Cancelled Lymph % (Auto) Cancelled [place] % (Auto) Cancelled Eos % (Auto) Cancelled Baso % (Auto) Cancelled Immature Gran # (Auto) Cancelled Neut # (Auto) Cancelled Lymph # (Auto) Cancelled [place] # (Auto) Cancelled Eos # (Auto) Cancelled Baso # (Auto) Cancelled Neutrophils % (Manual) Cancelled Band Neutrophils % Cancelled Lymphocytes % (Manual) Cancelled Prolymphocyte % Cancelled Reactive Lymphs % (Man) Cancelled Monocytes % (Manual) Cancelled Eosinophils % (Manual) Cancelled Basophils % (Manual) Cancelled Metamyelocytes % (Man) Cancelled Myelocytes % (Man) Cancelled Promyelocytes % (Man) Cancelled Blast Cells % (Manual) Cancelled Plasma Cell % (Manual) Cancelled Other Cells % Cancelled Nucleated RBC % Cancelled Neutrophils # (Manual) Cancelled Band Neutrophils # Cancelled Total Absolute Neuts Cancelled Lymphocytes # (Manual) Cancelled Prolymphocyte # Cancelled Reactive Lymphs # Cancelled Total Abs Lymphocytes Cancelled Monocytes # (Manual) Cancelled Eosinophils # (Manual) Cancelled Basophils # (Manual) Cancelled Metamyelocytes # (Man) Cancelled Myelocytes # (Manual) Cancelled Promyelocytes # (Man) Cancelled Blast Cells # (Man) Cancelled Plasma Cell # (Manual) Cancelled Other Cells # Cancelled Nucleated RBCs # (Man) Cancelled Hypersegmented Neuts Cancelled Hyposegmented Neuts Cancelled Hypogranular Neuts Cancelled Large Granular Lymphs Cancelled # Lrg Granular Lymphs Cancelled Hairy Cells Cancelled Smudge Cells Cancelled Toxic Granulation Cancelled Toxic Vacuolation Cancelled Dohle Bodies Cancelled Sidney Rods Cancelled Hypogranular Platelets Cancelled Clumped Platelets Cancelled Giant Platelets Cancelled Platelet Satelliting Cancelled RBC Morphology Cancelled Polychromasia Cancelled Hypochromasia Cancelled Poikilocytosis Cancelled Basophilic Stippling Cancelled Anisocytosis Cancelled Microcytosis Cancelled Macrocytosis Cancelled Spherocytes Cancelled Pappenheimer Bodies Cancelled Sickle Cells Cancelled Target Cells Cancelled Tear Drop Cells Cancelled Ovalocytes Cancelled Stomatocytes Cancelled David[place] Bodies Cancelled Echinocytes Cancelled Acanthocytes (Spur) Cancelled Rouleaux Cancelled RBC Agglutinates Cancelled Schistocytes Cancelled RBC Morph Comment Cancelled Sezary Cell Cancelled PT (9.0-12.0) Seconds INR (0.9-1.1) APTT (21.0-31.0) Seconds PTT Ratio Sodium (136-145) mmol/L Potassium (3.5-5.1) mmol/L Chloride (98-107) mmol/L Carbon Dioxide (21-32) mmol/L Anion Gap (3-11) BUN (7-18) mg/dl Creatinine (0.6-1.4) mg/dl Est Cr Clr Drug Dosing ml/min Est GFR ( Amer) Est GFR (Non-Af Amer) BUN/Creatinine Ratio (10-20) Glucose (70-99) mg/dl Lactate (0.4-2.0) mmol/L Calcium (8.5-10.1) mg/dl Magnesium (1.8-2.4) mg/dl Total Bilirubin (0.2-1) mg/dl AST (15-37) U/L ALT (12-78) U/L Alkaline Phosphatase (45-117) U/L Troponin I (0-0.045) ng/ml NT-Pro-B Natriuret Pep (0-900) pg/ml Total Protein (6.4-8.2) gm/dl Albumin (3.4-5.0) gm/dl Globulin (2.5-4.0) gm/dl Albumin/Globulin Ratio (0.9-2) Procalcitonin 0.08 (0-0.5) ng/ml TSH (0.300-4.500) uIu/ml Urine Color Urine Appearance (Clear) Urine pH (4.5-7.5) Ur Specific [place] (1.000-1.030) Urine Protein (Negative) Urine Glucose (UA) (Negative) Urine Ketones (Negative) Urine Blood (Negative) Urine Nitrite (Negative) Urine Bilirubin (Negative) Urine Urobilinogen (Negative) Ur Leukocyte Esterase (Negative) Influenza Type A (PCR) (Neg) Influenza Type B (PCR) (Neg) Blood Type O Positive Antibody Screen NEGATIVE 11/05/19 11/05/19 11/05/19 Range/Units 10:56 10:56 10:56 WBC (4.8-10.8) K/uL RBC (4.7-6.1) M/uL Hgb (14.0-18.0) g/dL Hct (42-52) % MCV (80-100) fL MCH (25-34) pg MCHC (32-36) g/dL RDW Std Deviation (36.4-46.3) fL RDW Coeff of Sunni (11.5-14.5) % Plt Count (130-400) K/uL MPV (7.4-10.4) fL Immature Gran % (Auto) Neut % (Auto) Lymph % (Auto) [place] % (Auto) Eos % (Auto) Baso % (Auto) Immature Gran # (Auto) Neut # (Auto) Lymph # (Auto) [place] # (Auto) Eos # (Auto) Baso # (Auto) Neutrophils % (Manual) Band Neutrophils % Lymphocytes % (Manual) Prolymphocyte % Reactive Lymphs % (Man) Monocytes % (Manual) Eosinophils % (Manual) Basophils % (Manual) Metamyelocytes % (Man) Myelocytes % (Man) Promyelocytes % (Man) Blast Cells % (Manual) Plasma Cell % (Manual) Other Cells % Nucleated RBC % Neutrophils # (Manual) Band Neutrophils # Total Absolute Neuts Lymphocytes # (Manual) Prolymphocyte # Reactive Lymphs # Total Abs Lymphocytes Monocytes # (Manual) Eosinophils # (Manual) Basophils # (Manual) Metamyelocytes # (Man) Myelocytes # (Manual) Promyelocytes # (Man) Blast Cells # (Man) Plasma Cell # (Manual) Other Cells # Nucleated RBCs # (Man) Hypersegmented Neuts Hyposegmented Neuts Hypogranular Neuts Large Granular Lymphs # Lrg Granular Lymphs Hairy Cells Smudge Cells Toxic Granulation Toxic Vacuolation Dohle Bodies [place] Rods Hypogranular Platelets Clumped Platelets Giant Platelets Platelet Satelliting RBC Morphology Polychromasia Hypochromasia Poikilocytosis Basophilic Stippling Anisocytosis Microcytosis Macrocytosis Spherocytes Pappenheimer Bodies Sickle Cells Target Cells Tear Drop Cells Ovalocytes Stomatocytes David-[place] Bodies Echinocytes Acanthocytes (Spur) Rouleaux RBC Agglutinates Schistocytes RBC Morph Comment Sezary Cell PT 11.2 (9.0-12.0) Seconds INR 1.1 (0.9-1.1) APTT 28.1 (21.0-31.0) Seconds PTT Ratio 1.0 Sodium 138 (136-145) mmol/L Potassium 3.4 L (3.5-5.1) mmol/L Chloride 104 (98-107) mmol/L Carbon Dioxide 28 (21-32) mmol/L Anion Gap 6.0 (3-11) BUN 26 H (7-18) mg/dl Creatinine 0.91 (0.6-1.4) mg/dl Est Cr Clr Drug Dosing 78.0 ml/min Est GFR ( Amer) 98.6 Est GFR (Non-Af Amer) 85.1 BUN/Creatinine Ratio 28.1 H (10-20) Glucose 201 H (70-99) mg/dl Lactate (0.4-2.0) mmol/L Calcium 8.0 L (8.5-10.1) mg/dl Magnesium 1.7 L (1.8-2.4) mg/dl Total Bilirubin 1.0 (0.2-1) mg/dl AST 10 L (15-37) U/L ALT 20 (12-78) U/L Alkaline Phosphatase 78 (45-117) U/L Troponin I 0.027 (0-0.045) ng/ml NT-Pro-B Natriuret Pep 1552 H (0-900) pg/ml Total Protein 4.6 L (6.4-8.2) gm/dl Albumin 2.2 L (3.4-5.0) gm/dl Globulin 2.4 L (2.5-4.0) gm/dl Albumin/Globulin Ratio 0.9 (0.9-2) Procalcitonin (0-0.5) ng/ml TSH 2.080 (0.300-4.500) uIu/ml Urine Color Urine Appearance (Clear) Urine pH (4.5-7.5) Ur Specific [place] (1.000-1.030) Urine Protein (Negative) Urine Glucose (UA) (Negative) Urine Ketones (Negative) Urine Blood (Negative) Urine Nitrite (Negative) Urine Bilirubin (Negative) Urine Urobilinogen (Negative) Ur Leukocyte Esterase (Negative) Influenza Type A (PCR) (Neg) Influenza Type B (PCR) (Neg) Blood Type Antibody Screen 11/05/19 11/05/19 11/05/19 Range/Units 11:04 12:35 12:54 WBC (4.8-10.8) K/uL RBC (4.7-6.1) M/uL Hgb (14.0-18.0) g/dL Hct (42-52) % MCV (80-100) fL MCH (25-34) pg MCHC (32-36) g/dL RDW Std Deviation (36.4-46.3) fL RDW Coeff of Sunni (11.5-14.5) % Plt Count (130-400) K/uL MPV (7.4-10.4) fL Immature Gran % (Auto) Neut % (Auto) Lymph % (Auto) [place] % (Auto) Eos % (Auto) Baso % (Auto) Immature Gran # (Auto) Neut # (Auto) Lymph # (Auto) [place] # (Auto) Eos # (Auto) Baso # (Auto) Neutrophils % (Manual) Band Neutrophils % Lymphocytes % (Manual) Prolymphocyte % Reactive Lymphs % (Man) Monocytes % (Manual) Eosinophils % (Manual) Basophils % (Manual) Metamyelocytes % (Man) Myelocytes % (Man) Promyelocytes % (Man) Blast Cells % (Manual) Plasma Cell % (Manual) Other Cells % Nucleated RBC % Neutrophils # (Manual) Band Neutrophils # Total Absolute Neuts Lymphocytes # (Manual) Prolymphocyte # Reactive Lymphs # Total Abs Lymphocytes Monocytes # (Manual) Eosinophils # (Manual) Basophils # (Manual) Metamyelocytes # (Man) Myelocytes # (Manual) Promyelocytes # (Man) Blast Cells # (Man) Plasma Cell # (Manual) Other Cells # Nucleated RBCs # (Man) Hypersegmented Neuts Hyposegmented Neuts Hypogranular Neuts Large Granular Lymphs # Lrg Granular Lymphs Hairy Cells Smudge Cells Toxic Granulation Toxic Vacuolation Dohle Bodies Sidney Rods Hypogranular Platelets Clumped Platelets Giant Platelets Platelet Satelliting RBC Morphology Polychromasia Hypochromasia Poikilocytosis Basophilic Stippling Anisocytosis Microcytosis Macrocytosis Spherocytes Pappenheimer Bodies Sickle Cells Target Cells Tear Drop Cells Ovalocytes Stomatocytes David-[place] Bodies Echinocytes Acanthocytes (Spur) Rouleaux RBC Agglutinates Schistocytes RBC Morph Comment Sezary Cell PT (9.0-12.0) Seconds INR (0.9-1.1) APTT (21.0-31.0) Seconds PTT Ratio Sodium (136-145) mmol/L Potassium (3.5-5.1) mmol/L Chloride (98-107) mmol/L Carbon Dioxide (21-32) mmol/L Anion Gap (3-11) BUN (7-18) mg/dl Creatinine (0.6-1.4) mg/dl Est Cr Clr Drug Dosing ml/min Est GFR ( Amer) Est GFR (Non-Af Amer) BUN/Creatinine Ratio (10-20) Glucose (70-99) mg/dl Lactate 2.2 H* 2.1 H* (0.4-2.0) mmol/L Calcium (8.5-10.1) mg/dl Magnesium (1.8-2.4) mg/dl Total Bilirubin (0.2-1) mg/dl AST (15-37) U/L ALT (12-78) U/L Alkaline Phosphatase (45-117) U/L Troponin I (0-0.045) ng/ml NT-Pro-B Natriuret Pep (0-900) pg/ml Total Protein (6.4-8.2) gm/dl Albumin (3.4-5.0) gm/dl Globulin (2.5-4.0) gm/dl Albumin/Globulin Ratio (0.9-2) Procalcitonin (0-0.5) ng/ml TSH (0.300-4.500) uIu/ml Urine Color Urine Appearance (Clear) Urine pH (4.5-7.5) Ur Specific [place] (1.000-1.030) Urine Protein (Negative) Urine Glucose (UA) (Negative) Urine Ketones (Negative) Urine Blood (Negative) Urine Nitrite (Negative) Urine Bilirubin (Negative) Urine Urobilinogen (Negative) Ur Leukocyte Esterase (Negative) Influenza Type A (PCR) Neg for Influ A (Neg) Influenza Type B (PCR) Neg for Influ B (Neg) Blood Type Antibody Screen 11/05/19 Range/Units 13:20 WBC (4.8-10.8) K/uL RBC (4.7-6.1) M/uL Hgb (14.0-18.0) g/dL Hct (42-52) % MCV (80-100) fL MCH (25-34) pg MCHC (32-36) g/dL RDW Std Deviation (36.4-46.3) fL RDW Coeff of Sunni (11.5-14.5) % Plt Count (130-400) K/uL MPV (7.4-10.4) fL Immature Gran % (Auto) Neut % (Auto) Lymph % (Auto) [place] % (Auto) Eos % (Auto) Baso % (Auto) Immature Gran # (Auto) Neut # (Auto) Lymph # (Auto) [place] # (Auto) Eos # (Auto) Baso # (Auto) Neutrophils % (Manual) Band Neutrophils % Lymphocytes % (Manual) Prolymphocyte % Reactive Lymphs % (Man) Monocytes % (Manual) Eosinophils % (Manual) Basophils % (Manual) Metamyelocytes % (Man) Myelocytes % (Man) Promyelocytes % (Man) Blast Cells % (Manual) Plasma Cell % (Manual) Other Cells % Nucleated RBC % Neutrophils # (Manual) Band Neutrophils # Total Absolute Neuts Lymphocytes # (Manual) Prolymphocyte # Reactive Lymphs # Total Abs Lymphocytes Monocytes # (Manual) Eosinophils # (Manual) Basophils # (Manual) Metamyelocytes # (Man) Myelocytes # (Manual) Promyelocytes # (Man) Blast Cells # (Man) Plasma Cell # (Manual) Other Cells # Nucleated RBCs # (Man) Hypersegmented Neuts Hyposegmented Neuts Hypogranular Neuts Large Granular Lymphs # Lrg Granular Lymphs Hairy Cells Smudge Cells Toxic Granulation Toxic Vacuolation Dohle Bodies Sidney Rods Hypogranular Platelets Clumped Platelets Giant Platelets Platelet Satelliting RBC Morphology Polychromasia Hypochromasia Poikilocytosis Basophilic Stippling Anisocytosis Microcytosis Macrocytosis Spherocytes Pappenheimer Bodies Sickle Cells Target Cells Tear Drop Cells Ovalocytes Stomatocytes [place] Bodies Echinocytes Acanthocytes (Spur) Rouleaux RBC Agglutinates Schistocytes RBC Morph Comment Sezary Cell PT (9.0-12.0) Seconds INR (0.9-1.1) APTT (21.0-31.0) Seconds PTT Ratio Sodium (136-145) mmol/L Potassium (3.5-5.1) mmol/L Chloride (98-107) mmol/L Carbon Dioxide (21-32) mmol/L Anion Gap (3-11) BUN (7-18) mg/dl Creatinine (0.6-1.4) mg/dl Est Cr Clr Drug Dosing ml/min Est GFR ( Amer) Est GFR (Non-Af Amer) BUN/Creatinine Ratio (10-20) Glucose (70-99) mg/dl Lactate (0.4-2.0) mmol/L Calcium (8.5-10.1) mg/dl Magnesium (1.8-2.4) mg/dl Total Bilirubin (0.2-1) mg/dl AST (15-37) U/L ALT (12-78) U/L Alkaline Phosphatase (45-117) U/L Troponin I (0-0.045) ng/ml NT-Pro-B Natriuret Pep (0-900) pg/ml Total Protein (6.4-8.2) gm/dl Albumin (3.4-5.0) gm/dl Globulin (2.5-4.0) gm/dl Albumin/Globulin Ratio (0.9-2) Procalcitonin (0-0.5) ng/ml TSH (0.300-4.500) uIu/ml Urine Color Yellow Urine Appearance Clear (Clear) Urine pH 6.0 (4.5-7.5) Ur Specific [place] 1.015 (1.000-1.030) Urine Protein Negative (Negative) Urine Glucose (UA) Negative (Negative) Urine Ketones Negative (Negative) Urine Blood Negative (Negative) Urine Nitrite Negative (Negative) Urine Bilirubin Negative (Negative) Urine Urobilinogen Negative (Negative) Ur Leukocyte Esterase Negative (Negative) Influenza Type A (PCR) (Neg) Influenza Type B (PCR) (Neg) Blood Type Antibody Screen Imaging Data Radiologist's Impression: Radiology results as stated below per my review and the radiologist's interpretation: SINGLE VIEW CHEST CLINICAL HISTORY: Generalized weakness. FINDINGS: An AP, portable, upright chest radiograph is compared to study dated 07/21/2019 and correlated with chest CT dated 06/16/2019. The examination is degraded by portable technique and patient rotation. A right subclavian central venous infusion port is unchanged in position. The heart is enlarged noting atherosclerotic calcification of the thoracic aorta. The pulmonary vasculature is noncongested. An accessory azygous fissure is again noted. There are small pleural effusions with bibasilar consolidation. No pneumothorax is seen. The skeletal structures are osteopenic. The bony thorax is grossly intact. IMPRESSION: 1. Cardiomegaly without radiographic evidence of congestive failure. 2. There are small pleural effusions with bibasilar consolidation. This likely represents atelectasis and clinical correlation will be required. ACT 112: Negative or not required by law. Results electronically sent 11/05/2019 10:48 AM to: Blayne Sanchez DO Electronically signed by: Larry Mckeon M.D. 11/05/2019 10:48 AM ECG Data Attestation: I personally reviewed and interpreted this ECG as follows: Indication: + weakness Rate (beats per minute): 85 Rhythm: + normal sinus ECG ST segments: no ST depression and no ST elevation ECG Findings: no PACs and no PVCs Comparison ECG Date: from (09/25/19) Change: no significant change Blood Pressure Blood Pressure Findings: Normal blood pressure Blood Pressure Disposition: further management by hospitalist KYE Mccauley Continuous Cardiac Monitoring: An order was placed for continuous cardiac monitoring. The monitor shows a rate of 82 with a normal sinus rhythm. The patient is a 69-year-old male who presented to the emergency department for an evaluation of generalized weakness. The patient has a history of lymphoma and is being treated with chemotherapy. Last treatment was Saturday of this week. The patient has a history of severe anemia for which he is required blood transfusion in the past. He felt that this was the cause of his generalized weakness. The patient started having chills as well as nausea vomiting in the emergency department. I was very concerned this could represent an infectious process. The patient was found to be severely neutropenic and was started on cefepime. He was also given IV fluids. I discussed the patient's laboratory and radiographic studies with him. He was not anemic to the point of requiring transfusion. He was thrombocytopenic. I discussed the patient's condition with the on-call [facility] hospitalist group. They have agreed to evaluate the patient in the emergency department for further management disposition. Impression & Plan Weakness, Neutropenia, Hypomagnesemia Discharge Plan Visit Data *Final* Discharge Date/Time: 11/05/19 15:05 Chief Complaint: Referred by Doctor Stated Complaint: DIZZY, ALMOST FAINTED - [facility]F [facility] Provider: Blayne Sanchez Discharge Problem: Weakness, Neutropenia, Hypomagnesemia Patient Disposition: Admitted As Inpatient Discharge Instructions Interventions: ED Discharge Assessment Last Done: 11/05/19 15:05 Discharge Problem: Neutropenia Qualifiers: Neutropenia type: unspecified Qualified Code(s): D70.9 - Neutropenia, unspecified The scribe's documentation has been prepared under my direction and personally reviewed by me in its entirety. I confirm that the note above accurately r eflects all work, treatment, procedures, and medical decision making performed by me.
--- NOTE | 2019-11-05 10:49 | XRay Report ---
SINGLE VIEW CHEST CLINICAL HISTORY: Generalized weakness. FINDINGS: An AP, portable, upright chest radiograph is compared to study dated 07/21/2019 and correla ragini with chest CT dated 06/16/2019. The examination is degraded by portable technique and patient rot ation. A right subclavian central venous infusion port is unchanged in position. The heart is enlarge d noting atherosclerotic calcification of the thoracic aorta. The pulmonary vasculature is noncongest ed. An accessory azygous fissure is again noted. There are small pleural effusions with bibasilar con solidation. No pneumothorax is seen. The skeletal structures are osteopenic. The bony thorax is gross ly intact. IMPRESSION: 1. Cardiomegaly without radiographic evidence of congestive failure. 2. There are small pleural effusions with bibasilar consolidation. This likely represents atelectasis and clinical correlation will be required. ACT 112: Negative or not required by law. Results electronically sent 11/05/2019 10:48 AM to: Blayne Sanchez DO Electronically signed by: Larry Mckeon M.D. 11/05/2019 10:48 AM
[2019-11-05 11:31] LABS: INR 1.1 (0.9-1.1); Partial Thromboplastin Time 28.1 Seconds (21.0-31.0); Prothrombin Time 11.2 Seconds (9.0-12.0)
[2019-11-05 11:36] LABS: Albumin Level 2.2 gm/dl (3.4-5.0); BUN Creatinine Ratio 28.1 (10-20); Est GFR (African American) 98.6; Est GFR (Non-African American) 85.1; Magnesium 1.7 mg/dl (1.8-2.4); Potassium 3.4 mmol/L (3.5-5.1)
[2019-11-05 11:44] LABS: Hematocrit (blood only) 25.2 % (42-52); Hemoglobin 8.4 g/dL (14.0-18.0); Mean Corpuscular Hgb Conc 33.3 g/dL (32-36); Mean Platelet Volume 8.8 fL (7.4-10.4); Platelet Count 24 K/uL (130-400); RDW Coefficient of Variation 17.7 % (11.5-14.5); RDW Standard Deviation 58.2 fL (36.4-46.3); White Blood Count 0.05 K/uL (4.8-10.8)
[2019-11-05 11:46] LABS: Albumin Globulin Ratio 0.9 (0.9-2); Globulin 2.4 gm/dl (2.5-4.0); Thyroid Stimulating Hormone 2.08 uIu/ml (0.300-4.500); Total Protein 4.6 gm/dl (6.4-8.2); Troponin I 0.027 ng/ml (0-0.045)
[2019-11-05] MEDS ORDERED: CEFEPIME 2,000 MG/20 ML VIAL IV STA (11:54)
[2019-11-05] MEDS ORDERED: SODIUM CHLORIDE 0.9% 500 ML IV ONE (12:00)
[2019-11-05] MEDS ORDERED: MAGNESIUM SULFATE / D5W 1 GM/100 ML BAG IV ONE (12:12)
[2019-11-05 13:39] LABS: Influenza A virus by PCR Neg for Influ A (Neg); Influenza B virus by PCR Neg for Influ B (Neg)
[2019-11-05 13:40] LABS: Appearance Urine Clear (Clear); Bilirubin Urine Negative (Negative); Blood Urine Negative (Negative); Color Urine Yellow; Glucose Urine UA Negative (Negative); Ketones Urine Negative (Negative); Leukocyte Esterase Urine Negative (Negative); Nitrite Urine Negative (Negative); Protein Urine Negative (Negative); Specific Gravity Urine 1.015 (1.000-1.030); Urobilinogen Urine Negative (Negative)
--- NOTE | 2019-11-05 14:33 | History & Physical Report ---
Date of Service November 05, 2019 Assessment & Plan (1) Neutropenia: Admit to PCU on tele, VS q4h, Neutropenic isolation/precautions Most likely due to the recent chem-thx. Cont Acyclovir as suppression thx, Started Cefepime in the ER , cont 2 g IV Q8h for neutropenic fever and to cover for Pseudomonas.Doxy 100 mg IV BID to cover for atypical org. Consult hem/onc . DVT ppx:SCD-s and Teds Full Code Present on Admission?: Yes (2) Weakness: Likely due to recent chemo and neutropenic fever. Continue monitoring. Present on Admission?: Yes (3) Hypomagnesemia: Replenished in the ER. Continue monitoring. Present on Admission?: Yes (4) Lymphoma: as discussed above. Present on Admission?: Yes (5) Type 2 diabetes mellitus: Reduced home dose of Detemir to 7 units sc Qhs to prevent hypoglycemia while pt is hospitalized. SSI, accuchecks ACHS. Present on Admission?: Yes (6) Dyslipidemia: Fasting lipid panel pending, cont Simvastatin 40 mg PO Qhs. Present on Admission?: Yes (7) Hypothyroidism: TSH is normal 2.080.Continue home dose of levothyroxine 100 mcg PO QPM. Present on Admission?: Yes (8) Thrombocytopenia: Plt 25.2.Pt denies bruising, hematemesis, melena, hematuria, hemoptysis. Continue closely monitoring Plt-s. Present on Admission?: Yes History of Present Illness Chief Complaint: Weakness and dizziness s/p chemotherapy Primary Care Provider: Blayne Webber MD The patient is a 69 year old male with past medical history of dyslipidemia, diabetes mellitus type 2, lymphoma, Cynthia thyroiditis, who presents to the Emergency Room with complaints of weakness starting this morning. The patient's states the patient has lymphoma and gets chemotherapy at [facility]. She states the patient felt fine last night. She notes the patient got pasty, dizzy, and white this morning after he ate breakfast. She notes the patient was supposed to get blood tests today, but was instructed to go to the ED because of his symptoms. The patient states he last got his blood checked 3 days ago and it was 7.4. The patient denies having fevers, blood in his urine, blood in his stool, chest pain, nausea, and vomiting. The patient states his PCP is Dr. Webber. EKG: Normal sinus rhythm, prolonged QT interval. Labs are reviewed: WBC 0.05, hemoglobin 8.4, hematocrit 25.2 platelets 24, PT 11.2, INR 1.1, APTT 28.1, sodium 138, potassium 3.4, chloride 104, carbon dioxide 28, anion gap 6, BUN 26, creatinine 0.91, GFR 85.1, glucose 201,Lactate 2.2-->2.1, calcium 8, and magnesium 1.7, total bilirubin 1, AST 10, ALT 20, troponin 0.0 27, BNP 1552, total protein 4.6, albumin 2.2, globulin 2.4, TSH 2.08.The decision was made to admit pt to PCU on tele for severe neutropenia. Allergies Allergy/AdvReac Type Severity Reaction Status Date / Time No Known Allergies Allergy Verified 11/05/19 11:28 Home Medications Home Medications Medication Instructions Recorded Confirmed Type levothyroxine [Synthroid] 100 mcg PO QAM 07/08/19 11/05/19 History simvastatin 40 mg PO HS 07/08/19 11/05/19 History FreeStyle Dorie 14 Day Sensor #2 ea NS 08/11/19 09/28/19 Rx insulin aspart U-100 100 unit/mL 10 units SQ TIDM 08/11/19 11/05/19 History (3 mL) subcutaneous pen insulin detemir U-100 100 unit/mL 10 units SQ HS 08/11/19 11/05/19 History subcutaneous solution pantoprazole 40 mg tablet,delayed 40 mg PO QAM 08/11/19 11/05/19 History release acyclovir 400 mg tablet 400 mg PO BID 09/23/19 11/05/19 History ferrous sulfate 325 mg (65 mg 325 mg PO QAM 09/23/19 11/05/19 History iron) tablet bkjsmffv-chj-rsiac acid 300 1 tab PO QAM 09/23/19 11/05/19 History mcg-lycopene 600 mcg-lutein 300 mcg tablet prednisone 50 mg PO BID 09/25/19 11/05/19 History sennosides-docusate sodium 2 tab PO BID PRN 09/25/19 11/05/19 History [Senokot-S] levofloxacin 500 mg PO QAM 11/05/19 11/05/19 History Past Med/Surg History Medical History Anemia Anemia (Chronic) Diabetes mellitus (Chronic) type 2, not well controlled Hearing deficit Hypercholesterolemia Hypothyroidism (Chronic) Lymphoma SOB (shortness of breath) on exertion Surgical History History of colonoscopy S/P lymph node biopsy (07/09/19) Left Marla Incisional Lymph Node Biopsy Dr. 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 Beliefs That Will Affect Care: None marital status: Current Living Situation: Spouse current occupational status: employed and retired Other Information That Helps Us Care for You: No Feels Safe at Home: Yes Safety Concerns: Feels Safe At This Time Smoking Status: Never smoker Second Hand Exposure: No ; Hx Alcohol Use: Yes Alcohol type: beer and wine Alcohol Intake Frequency: Holidays/Special Occasions Hx Substance Use: No Seatbelt Use: always Review of Systems Review of Systems: All systems reviewed & are unremarkable except as noted in HPI & below Physical Exam Constitutional: WD/WN, vitals as above well developed, + ill appearing and + cachectic Eyes: PERRL ENMT: Ears: + hearing impairment Neck: trachea midline, no thyromegaly Respiratory: normal respiratory effort Cardiovascular: Rate/Rhythm: + tachycardic Heart Sounds: normal S1, normal S2 and + murmur Vessels: dorsalis pedis pulses present Extremities: + pedal edema Musculoskeletal: no cyanosis or clubbing, extremities motor strength 5/5 Skin: no rashes, warm and dry Neurologic: CN's II-XI intact bilaterally Psychiatric: Orientation: oriented x 3 Lymphatic: no cervical or axillary lymphadenopathy Results & Data Vital Signs (Past 12 Hours) Vital Signs Temp Pulse Resp BP Pulse Ox 11/05/19 14:15 80 14 150/80 H 11/05/19 14:00 77 15 165/99 H 11/05/19 13:45 79 16 144/118 H 11/05/19 13:30 86 20 163/96 H 11/05/19 13:15 88 19 151/96 H 11/05/19 13:00 76 14 150/85 H 95 11/05/19 12:45 79 13 144/83 H 96 11/05/19 12:30 84 15 159/80 H 97 11/05/19 12:15 83 14 142/80 H 97 11/05/19 12:00 74 14 148/81 H 98 11/05/19 11:45 78 16 149/72 H 95 11/05/19 11:30 73 14 144/77 H 96 11/05/19 11:15 73 17 133/78 95 11/05/19 11:00 36.6 C 75 15 133/77 96 11/05/19 10:24 96 11/05/19 10:15 36.3 C L 96 H 18 115/75 97 Code Status & VTE Plan Code Status Full Code VTE Prophylaxis Plan VTE Prophylaxis will be ordered: Yes PG Care Time/CCT Total # of Minutes Spent Total Time Spent with Patient: Total time spent is greater than 50% in coordination of care (as documented) at patient's floor/unit and/or counseling patient: Coding Level of Care Code 29100 Initial Inpt Care Lvl 3 Diagnoses Neutropenia D70.9 Neutropenia type: unspecified Weakness R53.1 Hypomagnesemia E83.42 Lymphoma C85.90 Type 2 diabetes mellitus E11.9 Dyslipidemia E78.5 Hypothyroidism E03.9 Thrombocytopenia D69.6 (1) Neutropenia Neutropenia type: unspecified Qualified Code(s): D70.9 - Neutropenia, unspecified
[2019-11-05] MEDS ORDERED: POLYETHYLENE (MIRALAX) 17 GM PACK PO PRN (16:16)
[2019-11-05] MEDS ORDERED: ACETAMINOPHEN 325 MG TAB PO PRN (16:16)
[2019-11-05] MEDS ORDERED: CEFEPIME CONSULT ACTIVE PRN (16:16)
[2019-11-05] MEDS ORDERED: MAGNESIUM HYDROXIDE SUSP 30 ML UDC PO PRN (16:16)
[2019-11-05] MEDS ORDERED: ALUMINUM/MAGNESIUM SUSP 30 ML UDC PO PRN (16:16)
[2019-11-05] MEDS ORDERED: ONDANSETRON INJ 2 MG/ML 2 ML VIAL IV PRN (16:16)
[2019-11-05] MEDS ORDERED: DOCUSATE SODIUM/SENNA 50/8.6MG TAB PO PRN (16:16)
[2019-11-05] MEDS ORDERED: CARBOHYDRATES FOR HYPOGLYCEMIA PO PRN (16:30)
[2019-11-05] MEDS ORDERED: GLUCOSE 10 TABS/TUBE PO PRN (16:30)
[2019-11-05] MEDS ORDERED: GLUCAGON FOR INJ 1 MG VIAL SQ PRN (16:30)
[2019-11-05] MEDS ORDERED: DEXTROSE 50% 50 ML SYRINGE IV PRN (16:30)
[2019-11-05] MEDS ORDERED: GLUCOSE 40% GEL 15 GM TUBE PO PRN (16:30)
[2019-11-05] MEDS: INSULIN ASPART 100 UNITS/ML 3 ML PEN SC SCH ×2 (17:14→20:56)
[2019-11-05] MEDS: predniSONE 50 MG TAB PO SCH (20:52)
[2019-11-05] MEDS: SIMVASTATIN 40 MG TAB PO SCH (20:53)
[2019-11-05] MEDS: ACYCLOVIR 400 MG TAB PO SCH (20:53)
[2019-11-05] MEDS ORDERED: INSULIN DETEMIR FLEXPEN/FLEX TOUCH 100 UNITS/ML 3ML SC SCH (21:00)
[2019-11-05] MEDS: CEFEPIME 2,000 MG in SYRINGE 7.5 ML IV SCH (21:06)
[2019-11-05] MEDS: DOXYCYCLINE HYCLATE 100 MG in DEXTROSE 5% 100 ML IV SCH (21:06)
--- NOTE | 2019-11-05 21:31 | Electrocardiogram Report ---
Test Reason : Blood Pressure : / mmHG Vent. Rate : 085 BPM Atrial Rate : 085 BPM P-R Int : 138 ms QRS Dur : 084 ms QT Int : 406 ms P-R-T Axes : 069 031 068 degrees QTc Int : 483 ms Normal sinus rhythm Prolonged QT Abnormal ECG When compared with ECG of 25-SEP-2019 14:29, No significant change was found Confirmed by Robert Rose ([id number]) on 11/05/2019 9:30:52 PM Referred By: Confirmed By:Robert Rose
[2019-11-05 21:47] LABS: Appearance Urine Clear (Clear); Bilirubin Urine Negative (Negative); Blood Urine Negative (Negative); Color Urine Yellow; Glucose Urine UA Negative (Negative); Ketones Urine Negative (Negative); Leukocyte Esterase Urine Negative (Negative); Nitrite Urine Negative (Negative); Protein Urine Negative (Negative); Specific Gravity Urine 1.018 (1.000-1.030); Urobilinogen Urine Negative (Negative)
[2019-11-05] MEDS ORDERED: POTASSIUM CHLORIDE 20 MEQ TABCR PO STA (23:47)
[2019-11-06] MEDS: CEFEPIME 2,000 MG in SYRINGE 7.5 ML IV SCH ×2 (04:39→12:08)
[2019-11-06] MEDS: LEVOTHYROXINE SODIUM 100 MCG TABLET PO SCH (06:20)
[2019-11-06 07:02] LABS: Hematocrit (blood only) 22.1 % (42-52); Hemoglobin 7.3 g/dL (14.0-18.0); Mean Corpuscular Hemoglobin 29.2 pg (25-34); Mean Corpuscular Volume 88.4 fL (80-100); Platelet Count 17 K/uL (130-400); RDW Coefficient of Variation 17.6 % (11.5-14.5); RDW Standard Deviation 56.7 fL (36.4-46.3); White Blood Count 0.04 K/uL (4.8-10.8)
[2019-11-06 07:09] LABS: Platelet Estimate SIGNIFIC DECREASED (Normal)
[2019-11-06 07:21] LABS: Albumin Level 2.2 gm/dl (3.4-5.0); BUN Creatinine Ratio 24.8 (10-20); Calcium 7.6 mg/dl (8.5-10.1); Creatinine Clr Calc Pharmacy 87.6 ml/min; Est GFR (African American) 104.4
[2019-11-06 07:28] LABS: Estimated Average Glucose 143 mg/dl; Hemoglobin A1C 6.6 % (4.5-5.6)
[2019-11-06 07:28] LABS: Albumin Globulin Ratio 0.9 (0.9-2); Bilirubin,Total 1.1 mg/dl (0.2-1); Globulin 2.4 gm/dl (2.5-4.0); Total Protein 4.6 gm/dl (6.4-8.2); Troponin I 0.031 ng/ml (0-0.045)
[2019-11-06] MEDS: FERROUS SULFATE 325 MG TAB PO SCH (08:06)
[2019-11-06] MEDS: INSULIN ASPART 100 UNITS/ML 3 ML PEN SC SCH ×4 (08:07→20:42)
[2019-11-06] MEDS: FUROSEMIDE 40 MG in SYRINGE 0 ML IV SCH (08:11)
[2019-11-06] MEDS: CEROVITE ADV FORMULA TAB PO SCH (08:11)
[2019-11-06] MEDS: PANTOprazole 40 MG TAB PO SCH (08:12)
[2019-11-06] MEDS: DOXYCYCLINE HYCLATE 100 MG in DEXTROSE 5% 100 ML IV SCH (08:12)
[2019-11-06] MEDS: ACYCLOVIR 400 MG TAB PO SCH ×2 (08:12→20:40)
[2019-11-06] MEDS: HEPARIN 100 UNIT/ML 5ML FLUSH FLUSH PRN ×2 (12:08→14:38)
[2019-11-06] MEDS: predniSONE 50 MG TAB PO SCH ×2 (12:09→20:38)
--- NOTE | 2019-11-06 14:17 | Hospitalist Progress Note ---
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 Garcia and [facility] At risk for tumor lysis syndrome * Currently electrolytes are balanced with a calcium level of 7.6 * Check serum uric acid * Check magnesium and phosphorus * If uric acid is high, will need aggressive IV hydration * Repeat labs are pending Current neutropenia with a white count of 0.04 * Empirically started on doxycycline and cefepime * Patient with no fever or evidence of infection * Confirmed with the patient had no fever at home either * Discontinue doxycycline and cefepime -discussed with oncology who agrees Continue prophylactic acyclovir 400 mg p.o. twice daily Oncology consult placed -appreciate Dr. Ricci's input (2) Pancytopenia: Patient with a history of lymphoma with recent R CHOP chemotherapy Most likely a leila Patient with a hemoglobin of 7.3 * Blood consent to be obtained by Dr. Burrell * Will need to transfuse packed red blood cells * Follow serial H&H's * No active bleeding appreciated at this time Patient with a platelet count of 17,000 * This is dropped from 25,000 since admission * Will treat chemotherapy-induced anemia * Oncology consulted * No active bleeding so will not transfuse platelets at this time * Continue to monitor serial labs Although patient is neutropenic he currently does not have fever and no active sign of infection Continue strict neutropenic precautions and follow serial labs (3) Diabetes type 2, uncontrolled: Hemoglobin A1c 6.6 Home regimen includes insulin aspart 10 units subcutaneously 3 times daily and insulin detemir 10 units subcutaneous at bedtime Consult for glycemic management placed (4) Hypothyroidism: Continue home dose of levothyroxine (5) Weakness: Secondary to stage IV lymphoma with ongoing chemotherapy treatment May benefit from PT/OT consult once neutropenia has resolved Out of bed to chair as tolerated Fall precautions per nursing (6) Anemia: Chronic anemia and currently on ferrous sulfate 325 mg daily at home Patient will need aggressive bowel regimen Senokot ordered BID Polyethylene glycol as needed Please refer to Dr. Burrell's addendum for further recommendations. Admission and Anticipated Discharge Date Admission Date: November 05, 2019 Subjective Attending: Dr. Sal Burrell This is a very pleasant 69-year-old male that carries a diagnosis of stage IV diffuse large B-cell lymphoma. The patient presents with weakness and is found to have pancytopenia with a platelet count of 17,000 and a hemoglobin of 7.3. He recently underwent his fifth cycle of R-CHOP chemotherapy on 10/29/2019. He follows with Dr. Magdiel Garcia in the outpatient clinic. His chief complaint on admission was generalized weakness. He complains of no pain. He has no shortness of breath. Venous access is via Mediport in the right subclavian region. He denies recent illness or travel. Has no fever, chills, sweats, rigors. He denies any melena or hematochezia. There is no evidence of bright red blood per rectum. He has no hematemesis. Review of Systems Review of Systems: All systems reviewed & are unremarkable except as noted in HPI & below Physical Exam Physical Exam: GENERAL : No acute distress EYES: No icterus, gaze conjugate NOSE: No evidence of epistaxis MOUTH: No lesions or candidiasis NECK: Supple CHEST: Right subclavian Mediport accessed. No tenderness to palpation. No erythema around the access site. LUNGS: CTA B/L, no wheezes, rales or rhonchi HEART: Regular, rate controlled ABDOMEN: Soft, NT, ND, BS Present EXTREMITIES: No LE edema, pedal pulses intact NEURO: A&OX3 Results & Data ([facility]) Vital Signs (Past 12 Hours) Vital Signs Temp Pulse Pulse Resp BP Pulse Ox 11/06/19 11:40 36.6 C 83 16 144/80 H 99 11/06/19 07:42 36.7 C 83 16 153/80 H 96 11/06/19 03:42 36.8 C 82 18 154/82 H 96 Laboratory Results 11/06/19 06:21 11/06/19 06:21 Diagnostic Findings SINGLE VIEW CHEST CLINICAL HISTORY: Generalized weakness. FINDINGS: An AP, portable, upright chest radiograph is compared to study dated 07/21/2019 and correlated with chest CT dated 06/16/2019. The examination is degraded by portable technique and patient rotation. A right subclavian central venous infusion port is unchanged in position. The heart is enlarged noting atherosclerotic calcification of the thoracic aorta. The pulmonary vasculature is noncongested. An accessory azygous fissure is again noted. There are small pleural effusions with bibasilar consolidation. No pneumothorax is seen. The skeletal structures are osteopenic. The bony thorax is grossly intact. IMPRESSION: 1. Cardiomegaly without radiographic evidence of congestive failure. 2. There are small pleural effusions with bibasilar consolidation. This likely represents atelectasis and clinical correlation will be required. ACT 112: Negative or not required by law. Results electronically sent 11/05/2019 10:48 AM to: Blayne Sanchez DO Electronically signed by: Larry Mckeon M.D. 11/05/2019 10:48 AM PG Care Time/CCT Total # of Minutes Spent Total Time Spent with Patient: Total time spent is greater than 50% in coordination of care (as documented) at patient's floor/unit and/or counseling patient: 40 minutes including discussion with patient and and with Dr. Ricci Coding Level of Care Code 50765 Subseq Hosp Care Lvl 3 Diagnoses Lymphoma C85.90 Pancytopenia D61.818 Diabetes type 2, uncontrolled E11.65 Hypothyroidism E03.9 Weakness R53.1 Anemia D64.9
[2019-11-06] MEDS ORDERED: PHARMACY GLYCEMIC MGMT CONSULT PRN (14:58)
[2019-11-06 15:10] LABS: BUN Creatinine Ratio 23.1 (10-20); Calcium 7.9 mg/dl (8.5-10.1); Creatinine Clr Calc Pharmacy 73.9 ml/min; Est GFR (African American) 92.4; Est GFR (Non-African American) 79.8; Magnesium 1.7 mg/dl (1.8-2.4); Potassium 3.6 mmol/L (3.5-5.1); Uric Acid 3.7 mg/dl (2.6-7.2)
[2019-11-06 15:11] LABS: Phosphorus 3.1 mg/dl (2.5-4.9)
[2019-11-06 15:16] LABS: Hematocrit (blood only) 21.3 % (42-52); Hemoglobin 7.1 g/dL (14.0-18.0); Mean Corpuscular Hemoglobin 29.6 pg (25-34); Mean Corpuscular Hgb Conc 33.3 g/dL (32-36); Mean Corpuscular Volume 88.8 fL (80-100); Platelet Count 19 K/uL (130-400); RDW Coefficient of Variation 17.2 % (11.5-14.5); RDW Standard Deviation 56.6 fL (36.4-46.3); White Blood Count 0.08 K/uL (4.8-10.8)
--- NOTE | 2019-11-06 15:23 | Pharmacy Report ---
Pharmacy Glycemic Short Note 2 - Date of Service November 06, 2019 - Glycemic Short BSG Results (Last 24 hours): 11/05/19 11/05/19 11/06/19 16:55 20:30 06:21 Glucose 205 H POC Glucose 140 H 208 H 11/06/19 11/06/19 11/06/19 07:31 11:27 14:35 Glucose 246 H POC Glucose 220 H 198 H OUTPATIENT ANTIDIABETIC REGIMEN: * Novolog 10u TIDM + Levemir 10u HS ASSESSMENT: * Pt is a 69yo M type II diabetic. PMHx consistent with HLD, lymphoma, HypoTH, among others. He is prescribed prednisone 50mg BID at home. He is ordered a diet and receiving cefepime/doxy for neutropenic fever. BSGs have been sl ightly elevated. * A1C is an unreliable metric to assess his diabetic status given that he is anemic. We will use day-to-day BSGs to determine his level of glycemic control. PLAN FOR INPATIENT GLYCEMIC CONTROL * Basal insulin - increase to home Rx * levemir 10u HS * Bolus insulin - tighten slightly * NovoLog per scale ACHS or Q6hrs while NPO * Goal Range: Low 100 mg/dL - High 140 mg/dL * Correction Factor: 25 mg/dL/unit * Nutritional / Prandial insulin per carb ratio of 1 unit per 8 grams CHO consumed
[2019-11-06] MEDS ORDERED: MAGNESIUM SULFATE / D5W 1 GM/100 ML BAG IV ONE (15:36)
[2019-11-06] MEDS ORDERED: POTASSIUM CHLORIDE 20 MEQ TABCR PO STA (15:36)
[2019-11-06] MEDS ORDERED: ACETAMINOPHEN 325 MG TAB PO ONE (15:40)
[2019-11-06] MEDS ORDERED: SODIUM CHLORIDE 0.9% 250 ML IV PRN (15:44)
--- NOTE | 2019-11-06 17:17 | Oncology Consultation ---
Date of Consultation November 06, 2019 Assessment & Plan (1) Pancytopenia: He is right at the leila of his counts, so these numbers, while low, are not unexpected. He has been afebrile all along and has no infectious symptoms. His workup for infection has been negative, so I would probably stop his antibiotics. He is due for a blood transfusion this afternoon, which is appropriate. His decline from admission was likely dilutional, though Larry Henley is ordering a FOBT which I think is reasonable. We could consider a platelet transfusion at this level, particularly if they are lower tomorrow. He received Neulasta already, so I would not give him any additional GCSF. His counts should start to recover on their own in the next 24 hours or so. I would restart antibiotics if he has a temperature above 38. I am not concerned about TLS in his situation, as this is cycle 5 and TLS is rare beyond the first 1-2 cycles. Still, monitoring his electrolytes is reasonable given his poor PO intake and the usual electrolyte shifts that occur with chemotherapy. Present on Admission?: Yes History of Present Illness Reason for Consultation: Pancytopenia DLBCL Attending Physician: Sal Burrell MD History of Present Illness Mr. Maria is a 69 year old man with a history o DM, hypothyroidism, and diffuse large B cell lymphoma. The latter disease was diagnosed in the fall. He started R-CHOP in July and most of his care has been based at [facility], under Dr. Chrissie Man. He received his 5th cycle about a week ago. He was feeling weak and lightheaded and his thought he was pale, so they brought him to the ER. Here, he was pancytopenic, most notably with WBCs near zero. He also had a hemoglobin of 7.3 and platelets of 17. He was given some supportive care and antibiotics and was looking well when I saw him. He denied any fevers, chills, or sweats. He denied any sinus congestion or rhinorrhea. He denied any cough, shortness of breath, or purulent sputum. He denied any abdominal pain or diarrhea. He denied any dysuria or increased frequency. He also denied any ra shes or swelling. He has been eating fairly, though he denies any mucositis or oral thrush. His weight is down about 2 kg from his last visit to our office in late October. Allergies Allergy/AdvReac Type Severity Reaction Status Date / Time No Known Allergies Allergy Verified 11/05/19 11:28 Home Medications Home Medications Medication Instructions Recorded Confirmed Type levothyroxine [Synthroid] 100 mcg PO QAM 07/08/19 11/05/19 History simvastatin 40 mg PO HS 07/08/19 11/05/19 History FreeStyle Dorie 14 Day Sensor #2 ea NS 08/11/19 09/28/19 Rx insulin aspart U-100 100 unit/mL 10 units SQ TIDM 08/11/19 11/05/19 History (3 mL) subcutaneous pen insulin detemir U-100 100 unit/mL 10 units SQ HS 08/11/19 11/05/19 History subcutaneous solution pantoprazole 40 mg tablet,delayed 40 mg PO QAM 08/11/19 11/05/19 History release acyclovir 400 mg tablet 400 mg PO BID 09/23/19 11/05/19 History ferrous sulfate 325 mg (65 mg 325 mg PO QAM 09/23/19 11/05/19 History iron) tablet cezafrku-iqg-prcbi acid 300 1 tab PO QAM 09/23/19 11/05/19 History mcg-lycopene 600 mcg-lutein 300 mcg tablet prednisone 50 mg PO BID 09/25/19 11/05/19 History sennosides-docusate sodium 2 tab PO BID PRN 09/25/19 11/05/19 History [Senokot-S] levofloxacin 500 mg PO QAM 11/05/19 11/05/19 History Patient History Medical History Anemia Anemia (Chronic) Diabetes mellitus (Chronic) type 2, not well controlled Hearing deficit Hypercholesterolemia Hypothyroidism (Chronic) Lymphoma SOB (shortness of breath) on exertion Surgical History History of colonoscopy S/P lymph node biopsy (07/09/19) Left Marla Incisional Lymph Node Biopsy Dr. 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 Required: No Beliefs That Will Affect Care: None marital status: Current Living Situation: Spouse current occupational status: employed and retired Other Information That Helps Us Care for You: No Feels Safe at Home: Yes Safety Concerns: Feels Safe At This Time Smoking Status: Never smoker Second Hand Exposure: No ; Hx Alcohol Use: Yes Alcohol type: beer and wine Alcohol Intake Frequency: Holidays/Special Occasions Hx Substance Use: No Seatbelt Use: always Review of Systems Review of Systems: All systems reviewed & are unremarkable except as noted in HPI & below Physical Exam Constitutional: + ill appearing (chronically), + thin and comfortable; no acute distress ENMT: external ear and nose normal, oropharynx normal Respiratory: normal respiratory effort, lungs clear to auscultation Cardiovascular: Rate/Rhythm: regular rate and regular rhythm Extremities: no pedal edema Gastrointestinal (Abdomen): Inspection/Auscultation: normal bowel sounds Percussion/Palpation: abdomen soft; abdomen nontender Skin: no rashes, warm and dry Psychiatric: A+Ox3, euthymic affect Lymphatic: no cervical or axillary lymphadenopathy Results & Data Vital Signs (Past 12 Hours) Vital Signs Temp Pulse Resp BP Pulse Ox 11/06/19 15:22 36.8 C 86 20 135/78 96 11/06/19 11:40 36.6 C 83 16 144/80 H 99 11/06/19 07:42 36.7 C 83 16 153/80 H 96 Laboratory Results Laboratory Tests 11/05/19 11/06/19 11/06/19 10:56 06:21 06:21 WBC 0.05 L* 0.04 L* Hgb 8.4 L 7.3 L Plt Count 24 L* 17 L* Sodium 134 L Creatinine 0.81 Glucose 205 H Albumin 2.2 L A UA from admission was non-infectious and he was negative for Flu A/B. Blood cu ltures are negative so far Diagnostic Findings A chest x-ray from admission revealed: IMPRESSION: 1. Cardiomegaly without radiographic evidence of congestive failure. 2. There are small pleural effusions with bibasilar consolidation. This likely represents atelectasis and clinical correlation will be required.
[2019-11-06] MEDS: DOCUSATE SODIUM/SENNA 50/8.6MG TAB PO SCH (20:39)
[2019-11-06] MEDS: SIMVASTATIN 40 MG TAB PO SCH (20:40)
[2019-11-06] MEDS: INSULIN DETEMIR FLEXPEN/FLEX TOUCH 100 UNITS/ML 3ML SC SCH (20:41)
[2019-11-06 21:45] LABS: Hematocrit (blood only) 23.9 % (42-52)
[2019-11-07] MEDS: LEVOTHYROXINE SODIUM 100 MCG TABLET PO SCH (06:13)
[2019-11-07 08:41] LABS: Hematocrit (blood only) 23.5 % (42-52); Hemoglobin 7.8 g/dL (14.0-18.0); Mean Corpuscular Hemoglobin 29.2 pg (25-34); Mean Corpuscular Hgb Conc 33.2 g/dL (32-36); Platelet Count 18 K/uL (130-400); RDW Coefficient of Variation 16.6 % (11.5-14.5); RDW Standard Deviation 52.8 fL (36.4-46.3); Red Blood Count 2.67 M/uL (4.7-6.1); White Blood Count 0.14 K/uL (4.8-10.8)
[2019-11-07 08:45] LABS: Albumin Level 2.1 gm/dl (3.4-5.0); BUN Creatinine Ratio 29.3 (10-20); Calcium 8.3 mg/dl (8.5-10.1); Creatinine Clr Calc Pharmacy 94.2 ml/min; Est GFR (African American) 108.3; Est GFR (Non-African American) 93.5; Potassium 3.6 mmol/L (3.5-5.1)
[2019-11-07 08:48] LABS: Albumin Globulin Ratio 0.8 (0.9-2); Bilirubin,Total 0.8 mg/dl (0.2-1); Globulin 2.7 gm/dl (2.5-4.0); Magnesium 1.8 mg/dl (1.8-2.4); Total Protein 4.8 gm/dl (6.4-8.2)
[2019-11-07] MEDS: predniSONE 50 MG TAB PO SCH ×2 (09:17→20:42)
[2019-11-07] MEDS: ACYCLOVIR 400 MG TAB PO SCH ×2 (09:19→20:47)
[2019-11-07] MEDS: CEROVITE ADV FORMULA TAB PO SCH (09:19)
[2019-11-07] MEDS: DOCUSATE SODIUM/SENNA 50/8.6MG TAB PO SCH ×2 (09:19→20:47)
[2019-11-07] MEDS: PANTOprazole 40 MG TAB PO SCH (09:19)
[2019-11-07] MEDS: FERROUS SULFATE 325 MG TAB PO SCH (09:19)
[2019-11-07] MEDS: INSULIN ASPART 100 UNITS/ML 3 ML PEN SC SCH ×4 (09:20→20:49)
[2019-11-07] MEDS: FUROSEMIDE 40 MG in SYRINGE 0 ML IV SCH (09:54)
--- NOTE | 2019-11-07 10:49 | Ultrasound Report ---
US venous doppler UE RT CLINICAL HISTORY: 69 years-old Male presenting with Right arm swelling; DVT?. TECHNIQUE: Real-time grayscale and color and spectral Doppler ultrasound imaging of the veins of the right upper extremity was performed. Compression and augmentation were also utilized. COMPARISON: None. FINDINGS: RIGHT: Internal jugular vein: Patent. Subclavian vein: Grossly patent though not well visualized due to bandages relating to the presence o f the right Mediport. Axillary vein: Patent. Brachial vein: Patent. Basilic vein (superficial): Patent. Cephalic vein (superficial): Patent. Radial vein: Patent. Ulnar vein: Patent. Other: None. IMPRESSION: No evidence of deep venous thrombosis. ACT 112: Negative or not required by law. Electronically signed by: Antonio Samuel M.D. 11/07/2019 10:47 AM
[2019-11-07] MEDS ORDERED: SODIUM CHLORIDE 0.9% 1000ML 1,000 ML IV SCH (11:15)
--- NOTE | 2019-11-07 11:15 | Hospitalist Progress Note ---
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 Garcia and Madyson No evidence of tumor lysis syndrome with labs completed yesterday. Current neutropenia -counts are slowly improving * Empirically started on doxycycline and cefepime -discontinued 11/06/2019 * Patient with no fever or evidence of infection * Continue prophylactic acyclovir 400 mg p.o. twice daily Oncology consult placed -appreciate Dr. Ricci's input (2) HILARIO (acute kidney injury): Patient received transfusion of blood yesterday as well as electrolyte repletion but does show bump in BUN to greater than 1: 20 ratio to creatinine Will start maintenance fluid with normal saline at 80 mL an hour x1 L Repeat labs in the morning. Encourage oral intake Encourage ambulation. (3) Edema of upper extremity: Patient with edema of the right upper extremity which is asymmetrical from the left Due to history of lymphoma and recent chemotherapy, rule out DVT Ultrasound duplex of the right upper extremity ordered and pending (4) Pancytopenia: Patient with a history of lymphoma with recent R CHOP chemotherapy Most likely at [facility] Transfuse 1 unit packed red blood cells 11/06/2019 * Hemoglobin 8.0 today * Hold transfusion unless hemoglobin drops below 7 Patient with a platelet count of 17,000 * This is dropped from 25,000 since admission * No active bleeding so will not transfuse platelets at this time * Threshold for transfusion is less than 20,000 if there is active bleeding * Platelet count seems to be stable at this time. Await improvement with tincture of time Patient continues to be afebrile with no evidence of acute infection Continue strict neutropenic precautions and follow serial labs Follow serial labs (5) Diabetes type 2, uncontrolled: Hemoglobin A1c 6.6 Home regimen includes insulin aspart 10 units subcutaneously 3 times daily and insulin detemir 10 units subcutaneous at bedtime Consult for glycemic management placed Random glucose this morning is 76. [id number] was 90 (6) Hypothyroidism: Continue home dose of levothyroxine (7) Weakness: Secondary to stage IV lymphoma with ongoing chemotherapy treatment May benefit from PT/OT consult once neutropenia has resolved Out of bed to chair as tolerated Fall precautions per nursing (8) Anemia: Chronic anemia and currently on ferrous sulfate 325 mg daily at home Patient will need aggressive bowel regimen Senokot ordered BID Polyethylene glycol as needed Please refer to Dr. Burrell's addendum for further recommendations. Admission and Anticipated Discharge Date Admission Date: November 05, 2019 Subjective Attending: Dr. Sal Burrell Patient seen at bedside today with his present. He is feeling slightly better today. His color seems to be improved. He has no nausea or vomiting. He denies any fever or sweats. He has no complaints of pain. He has no shortness of breath or cough. Aside from malaise, he has no acute complaints. Review of Systems Review of Systems: All systems reviewed & are unremarkable except as noted in HPI & below Physical Exam Physical Exam: GENERAL : No acute distress EYES: No icterus, gaze conjugate NOSE: No evidence of epistaxis MOUTH: No lesions or candidiasis NECK: Supple LUNGS: CTA B/L, no wheezes, rales or rhonchi HEART: Regular, rate controlled ABDOMEN: Soft, NT, ND, BS Present EXTREMITIES: No LE edema, pedal pulses intact. Right upper extremity seems to be asymmetrically edematous compared to the left. NEURO: A&OX3 Results & Data ([facility]) Vital Signs (Past 12 Hours) Vital Signs Temp Pulse Resp BP Pulse Ox 11/07/19 07:11 36.8 C 81 18 151/83 H 97 11/07/19 04:03 36.6 C 88 18 149/78 H 100 11/06/19 23:46 36.9 C 74 15 172/79 H 100 Laboratory Results 11/07/19 07:27 11/07/19 07:27 Diagnostic Findings Right upper extremity ultrasound is pending to rule out DVT PG Care Time/CCT Total # of Minutes Spent Total Time Spent with Patient: Total time spent is greater than 50% in coordination of care (as documented) at patient's floor/unit and/or counseling patient: Coding Level of Care Code 36389 Subseq Hosp Care Lvl 3 Diagnoses Lymphoma C85.90 HILARIO (acute kidney injury) N17.9 Edema of upper extremity R60.0 Pancytopenia D61.818 Diabetes type 2, uncontrolled E11.65 Hypothyroidism E03.9 Weakness R53.1 Anemia D64.9
[2019-11-07] MEDS ORDERED: MAGNESIUM SULFATE / D5W 1 GM/100 ML BAG IV ONE (11:30)
[2019-11-07] MEDS: SIMVASTATIN 40 MG TAB PO SCH (20:47)
[2019-11-07] MEDS: INSULIN DETEMIR FLEXPEN/FLEX TOUCH 100 UNITS/ML 3ML SC SCH (20:48)
[2019-11-08] MEDS: HEPARIN 100 UNIT/ML 5ML FLUSH FLUSH PRN (01:29)
[2019-11-08] MEDS: LEVOTHYROXINE SODIUM 100 MCG TABLET PO SCH (06:04)
[2019-11-08 07:45] LABS: Hematocrit (blood only) 22.6 % (42-52); Hemoglobin 7.6 g/dL (14.0-18.0); Mean Corpuscular Hgb Conc 33.6 g/dL (32-36); Mean Corpuscular Volume 89.3 fL (80-100); RDW Coefficient of Variation 16.6 % (11.5-14.5); RDW Standard Deviation 54.1 fL (36.4-46.3); Red Blood Count 2.53 M/uL (4.7-6.1); White Blood Count 0.68 K/uL (4.8-10.8)
[2019-11-08 07:52] LABS: Albumin Level 2.1 gm/dl (3.4-5.0); Est GFR (African American) 107.1; Est GFR (Non-African American) 92.4; Magnesium 1.9 mg/dl (1.8-2.4); Potassium 3.8 mmol/L (3.5-5.1)
[2019-11-08 07:55] LABS: Albumin Globulin Ratio 0.8 (0.9-2); Bilirubin,Total 0.7 mg/dl (0.2-1); Globulin 2.7 gm/dl (2.5-4.0); Total Protein 4.8 gm/dl (6.4-8.2)
[2019-11-08 07:56] LABS: Platelet Count 30 K/uL (130-400)
[2019-11-08 07:58] LABS: Dohle Bodies 1+; Platelet Estimate SIGNIFIC DECREASED (Normal); Toxic Granulation 2+
[2019-11-08 08:12] LABS: ANC (manual) 0.47 K/uL (1.4-6.5); Basophils # (manual) 0.06 K/uL (0-0.2); Basophils % (manual) 9.1 %; Lymphocytes # (manual) 0.04 K/uL (1.2-3.4); Lymphocytes % (manual) 6.1 %; Metamyelocytes # (manual) 0.02 K/uL (0-0); Monocytes # (manual) 0.08 K/uL (0.11-0.59); Monocytes % (manual) 12.1 %; Neutrophils # (manual) 0.47 K/uL (1.4-6.5); Neutrophils % (manual) 69.7 %
--- NOTE | 2019-11-08 08:56 | Pharmacy Report ---
Pharmacy Glycemic Short Note 2 - Date of Service November 08, 2019 - Glycemic Short BSG Results (Last 24 hours): 11/07/19 11/07/19 11/07/19 07:27 11:10 16:43 Glucose 76 POC Glucose 205 H 132 H 11/07/19 11/08/19 11/08/19 20:29 07:07 07:09 Glucose 145 H POC Glucose 111 H 151 H OUTPATIENT ANTIDIABETIC REGIMEN: * Novolog 10u TIDM + Levemir 10u HS ASSESSMENT: * BSGs have been reasonable over the previous 24hrs. No acute fluctuation in insulin requirements are anticipated. Continue with standing insulin orders. PLAN FOR INPATIENT GLYCEMIC CONTROL * Basal insulin * levemir 10u HS * Bolus insulin * NovoLog per scale ACHS or Q6hrs while NPO * Goal Range: Low 100 mg/dL - High 140 mg/dL * Correction Factor: 25 mg/dL/unit * Nutritional / Prandial insulin per carb ratio of 1 unit per 8 grams CHO consumed
[2019-11-08] MEDS: FUROSEMIDE 40 MG in SYRINGE 0 ML IV SCH (09:04)
[2019-11-08] MEDS: INSULIN ASPART 100 UNITS/ML 3 ML PEN SC SCH ×2 (09:04→12:05)
[2019-11-08] MEDS: PANTOprazole 40 MG TAB PO SCH (09:05)
[2019-11-08] MEDS: CEROVITE ADV FORMULA TAB PO SCH (09:05)
[2019-11-08] MEDS: FERROUS SULFATE 325 MG TAB PO SCH (09:05)
[2019-11-08] MEDS: predniSONE 50 MG TAB PO SCH (09:05)
[2019-11-08] MEDS: DOCUSATE SODIUM/SENNA 50/8.6MG TAB PO SCH (09:06)
[2019-11-08] MEDS: ACYCLOVIR 400 MG TAB PO SCH (09:06)
[2019-11-08] MEDS ORDERED: SODIUM CHLORIDE 0.9% 500 ML IV SCH (10:45)
--- NOTE | 2019-11-08 13:57 | Discharge Summary ---
Date of Service November 08, 2019 Admission HPI Per Admitting Provider The patient is a 69 year old male with past medical history of dyslipidemia, diabetes mellitus type 2, lymphoma, Cynthia thyroiditis, who presents to the Emergency Room with complaints of weakness starting this morning. The patient's states the patient has lymphoma and gets chemotherapy at [place]. She states the patient felt fine last night. She notes the patient got pasty, dizzy, and white this morning after he ate breakfast. She notes the patient was supposed to get blood tests today, but was instructed to go to the ED because of his symptoms. The patient states he last got his blood checked 3 days ago and it was 7.4. The patient denies having fevers, blood in his urine, blood in his stool, chest pain, nausea, and vomiting. The patient states his PCP is Dr. Webber. EKG: Normal sinus rhythm, prolonged QT interval. Labs are reviewed: WBC 0.05, hemoglobin 8.4, hematocrit 25.2 platelets 24, PT 11.2, INR 1.1, APTT 28.1, sodium 138, potassium 3.4, chloride 104, carbon dioxide 28, anion gap 6, BUN 26, creatinine 0.91, GFR 85.1, glucose 201,Lactate 2.2-->2.1, calcium 8, and magnesium 1.7, total bilirubin 1, AST 10, ALT 20, troponin 0.0 27, BNP 1552, total protein 4.6, albumin 2.2, globulin 2.4, TSH 2.08.The decision was made to admit pt to PCU on tele for severe neutropenia. Admission Exam Per Admitting Provider Constitutional: WD/WN, vitals as above well developed, + ill appearing and + cachectic Eyes: PERRL ENMT: Ears: + hearing impairment Neck: trachea midline, no thyromegaly Respiratory: normal respiratory effort Cardiovascular: Rate/Rhythm: + tachycardic Heart Sounds: normal S1, normal S2 and + murmur Vessels: dorsalis pedis pulses present Extremities: + pedal edema Musculoskeletal: no cyanosis or clubbing, extremities motor strength 5/5 Skin: no rashes, warm and dry Neurologic: CN's II-XI intact bilaterally Psychiatric: Orientation: oriented x 3 Lymphatic: no cervical or axillary lymphadenopathy Principal Diagnosis Neutropenia Large B-cell lymphoma Discharge Exam GENERAL : No acute distress EYES: No icterus, gaze conjugate NOSE: No evidence of epistaxis MOUTH: No lesions or candidiasis NECK: Supple LUNGS: CTA B/L, no wheezes, rales or rhonchi HEART: Regular, rate controlled ABDOMEN: Soft, NT, ND, BS Present EXTREMITIES: No LE edema, pedal pulses intact. Right arm continues to have some asymmetrical edema. DVT was ruled out by duplex yesterday. NEURO: A&OX3. 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 Garcia and Madyson No evidence of tumor lysis syndrome. Current neutropenia -counts are slowly improving * Empirically started on doxycycline and cefepime -discontinued 11/06/2019 * Patient with no fever or evidence of infection * Calculated ANC on discharge was 473 * Continue prophylactic acyclovir 400 mg p.o. twice daily Oncology consult placed -appreciate Dr. Ricci's input Follow-up with Dr. Angulo this week (2) HILARIO (acute kidney injury): Patient received transfusion of blood yesterday as well as electrolyte repletion but does show bump in BUN to greater than 1: 20 ratio to creatinine Normal saline at 80 mL an hour. Discontinue on discharge Repeat labs this week as an outpatient. Encourage oral intake (3) Edema of upper extremity: Patient with edema of the right upper extremity which is asymmetrical from the left Radial and ulnar pulses intact Due to history of lymphoma and recent chemotherapy, Ultrasound duplex of the right upper extremity was completed Patient negative for pulmonary embolus in the right upper extremity Elevate arm above heart when at rest (4) Pancytopenia: Patient with a history of lymphoma with recent R CHOP chemotherapy Most likely at [facility] Transfused 1 unit packed red blood cells 11/06/2019 * Hemoglobin 7.6 at time of discharge * Outpatient labs to be obtained tomorrow Patient with a platelet count of 30,000 on the day of discharge Patient continues to be afebrile with no evidence of acute infection Follow with Dr. Angulo as an outpatient (5) Diabetes type 2, uncontrolled: Hemoglobin A1c 6.6 Home regimen includes insulin aspart 10 units subcutaneously 3 times daily and insulin detemir 10 units subcutaneous at bedtime Consult for glycemic management placed Random glucose this morning is 76. [id number] was 90 Continue home doses of insulin on discharge (6) Hypothyroidism: Continue home dose of levothyroxine (7) Weakness: Secondary to stage IV lymphoma with ongoing chemotherapy treatment Increase ambulation at home May benefit from home PT. We will leave this up to the to coordinate with primary care and outpatient hematology (8) Anemia: Chronic anemia and currently on ferrous sulfate 325 mg daily at home Four bowel movements in the last 2 days Senokot ordered BID. Continue as needed at home Polyethylene glycol as needed at home Patient states that he has appointment tomorrow for labs Encourage outpatient management per Dr. Garcia and Dr. Webber Total Time Total Time Spent Total Time Spent (In Minutes): 40 minutes Total Time Includes: Examination of the Patient, Discharge Planning, Medication Reconciliation and Communication With Other Providers Discharge Plan Discharge Items Patient Disposition: Home - Self-Care Reason For Visit: GENERALIZED WEAKNESS,LYMPHOMA,NEUTROP Discharge Diagnosis: B-cell lymphoma Neutropenia Dehydration Condition on Discharge: Good Activity: Resume your previous activity Lifting: Gradually increase as tolerated Bathing: No limitations Sexual Activity: When tolerated Exercise/Sports: Gradually increase as tolerated Driving/Machine Use: Resume 1 day after discharge Weightbearing: Full weightbearing Non-emergency contact: Primary Care Provider Call non-emergency contact if: you have any medication questions, your symptoms worsen and your temperature is above 101 Follow-up/Referrals: Pro,Blayne Grady MD [Primary Care Provider] - Magdiel Angulo DO [Physician] - (Follow-up this week for labs) Diet: Regular Addtl Attending Provider Instructions: Report to the emergency room for any unusual bleeding or fever greater than 100.5 Fahrenheit Pending Studies at Discharge: No Stand-Alone Forms: [employer], Smoking Cessation Medications and DC Order Prescriptions: Continued acyclovir 400 mg tablet 400 mg PO BID RF: 0 Centrum Silver Men 300-600-300 mcg tablet 1 tab PO QAM RF: 0 ferrous sulfate [Feosol] 325 mg (65 mg iron) tablet 325 mg PO QAM RF: 0 (DME) FreeStyle Dorie 14 Day Sensor kit See Rx Instructions [id number] .MEDSUPPLY Qty: 2 RF: 11 Novolog Flexpen U-100 Insulin 100 unit/mL (3 mL) insulin pen 10 units SQ TIDM RF: 0 Levemir U-100 Insulin 100 unit/mL solution 10 units SQ HS RF: 0 pantoprazole [Protonix] 40 mg tablet,delayed release (DR/EC) 40 mg PO QAM RF: 0 simvastatin 40 mg tablet 40 mg PO HS RF: 0 levothyroxine [Synthroid] 100 mcg tablet 100 mcg PO QAM RF: 0 sennosides-docusate sodium [Senokot-S] 8.6-50 mg Tablet 2 tab PO BID PRN (Reason: Constipation) RF: 0 Discontinued prednisone 50 mg tablet 50 mg PO BID RF: 0 levofloxacin 500 mg tablet 500 mg PO QAM RF: 0 Discharge Orders: Discharge Order (Routine); Ordered 11/08/19 Ordered By: Larry Daly/Other Patient Handouts: Neutropenia, Thrombocytopenia Admission Data Admit Date/Time: 11/05/19 14:27 Attending Provider: Sal Burrell Admit Provider: Janny Nicole Primary Care Provider: Blayne Webber Other Providers: Magdiel Angulo V. ; Sal Burrell Other Interventions: Discharge Summary Assessment (RN) Last Done: 11/08/19 14:32 DC Date/Time DO NOT enter until pt leaves facility: 11/08/19 15:25 Supervising Physician Co-Signing Physician Notes I supervised Ellie Montiel NP on this patient's care. I examined the patient today independently of her. I discussed the plan of care with her with the plan being as written in her note except for any following changes/exceptions: None. Feeling well. Counts are stable, thoug hgb still lower at 7.6. WBC coming up slowly. No fevers, no focal signs of infection. Will discharge home and follow closely with oncology. Coding Level of Care Code D/C Day Management >30 mins Diagnoses Lymphoma C85.90 HILARIO (acute kidney injury) N17.9 Edema of upper extremity R60.0 Pancytopenia D61.818 Diabetes type 2, uncontrolled E11.65 Hypothyroidism E03.9 Weakness R53.1 Anemia D64.9 Time Spent (min) 40
== END 2019-11-08 15:25 | disposition home or self-care (01) | DRG 809 ==
LOC: ED 10:04 → SUATTDRO 14:27 → 2S 14:27

== ENCOUNTER 2020-04-07 11:33 | Inpatient (IN) ==
--- NOTE | 2020-04-07 12:17 | Emergency Department Note ---
History of Present Illness General Chief complaint: Visual Disturbance Stated complaint: TROUBLE SEEING SENT BY DOCTOR Time Seen by Provider: 04/07/20 11:44 Source: patient Mode of arrival: EMS History of Present Illness Provider complaint: Visual changes Presents to the ED with a chief complaint of some visual changes. He states that it was gradual in onset with loss of the vision on the right side of both eyes. It started about 2 weeks ago. He states that a month ago he had an eye exam and was told that he had cataracts. Because of the vision changes, he saw his camouflage specialist today and was referred here after dilatation exam suggest that he has a right homonymous hemianopia. The patient has no other complaints. Denies any focal weakness of his extremities. No difficulty with speech or understanding speech. Denies any headaches, nausea or vomiting. No recent illness or fevers. Home Medications Home Medications Medication Instructions Recorded Confirmed Type simvastatin 40 mg PO HS 07/08/19 04/07/20 History ferrous sulfate 325 mg (65 mg 325 mg PO QAM 09/23/19 04/07/20 History iron) tablet kaelesqi-goo-abpmz acid 300 1 tab PO QAM 09/23/19 04/07/20 History mcg-lycopene 600 mcg-lutein 300 mcg tablet sitagliptin 100 mg tablet 100 mg PO DAILY #30 tab 12/23/19 04/07/20 Rx glimepiride 2 mg tablet 3 mg PO BID #90 tab 02/08/20 04/07/20 Rx levothyroxine 100 mcg tablet 100 mcg PO QAM #30 tab 03/14/20 04/07/20 Rx metformin 500 mg tablet,extended 500 mg PO DAILY tab 03/25/20 04/07/20 History release 24 hr Allergies Allergy/AdvReac Type Severity Reaction Status Date / Time No Known Allergies Allergy Verified 04/07/20 12:17 Past Med/Surg History Medical History Acute renal failure (Inactive) Hearing deficit Hypercalcemia (Inactive) Internal hemorrhoids (Inactive) Pancytopenia Tumor lysis syndrome (Inactive) Vitamin D deficiency Surgical History History of colonoscopy Port-A-Cath in place (Inactive 07/21/19) Insertion of Mediport into Right Cephalic Vein Dr. Myers 07/21/19 S/P lymph node biopsy (07/09/19) Left Marla Incisional Lymph Node Biopsy Dr. Myers 07/09/19 [place] teeth removed Family History Mother Brain cancer Heart disease Father Lung cancer Diabetes Denies family history of Ovarian cancer Prostate cancer Breast cancer Colorectal cancer Social History Smoking Status: Never smoker Second Hand Exposure: No; Hx Alcohol Use: Yes Alcohol type: beer and wine Hx Substance Use: No Preferred Language: [place] Islander Communication Ability: Effective Visual Impairment: No Limitations Hearing Ability: Normal Field Marketing Lead Required: No Beliefs That Will Affect Care: None marital status: Current Living Situation: Spouse current occupational status: employed and retired Feels Safe at Home: Yes Seatbelt Use: always Review of Systems A total of 10 systems reviewed and were otherwise negative Physical Exam Vital Signs Vital Signs - 24 hr 04/07/20 11:35 04/07/20 12:17 04/07/20 12:34 Temperature 36.6 C Temperature Source Oral Pulse Rate 75 75 Pulse Rate from SpO2 Sensor Pulse Rhythm Regular Pulse Strength Normal Respiratory Rate 18 14 Respiratory Effort / Characteristics Non-Labored Spontaneous Respiratory Depth Normal Respiratory Pattern Regular Blood Pressure 182/93 H 175/86 H Blood Pressure Mean 122 117 Blood Pressure Position Sitting Pulse Oximetry 99 96 Oxygen Delivery Method Room Air Room Air Sepsis Recent Fever Within 48 Hours No Sepsis New/Unexplained Change in Mental Status No Sepsis Action Taken by Nursing No Action Required 04/07/20 12:42 04/07/20 12:50 04/07/20 13:00 Temperature Temperature Source Pulse Rate 79 79 75 Pulse Rate from SpO2 Sensor Pulse Rhythm Pulse Strength Respiratory Rate 15 19 12 Respiratory Effort / Characteristics Respiratory Depth Respiratory Pattern Blood Pressure 178/98 H Blood Pressure Mean 129 Blood Pressure Position Pulse Oximetry Oxygen Delivery Method Sepsis Recent Fever Within 48 Hours Sepsis New/Unexplained Change in Mental Status Sepsis Action Taken by Nursing 04/07/20 13:01 04/07/20 13:10 04/07/20 14:36 Temperature Temperature Source Pulse Rate 76 77 74 Pulse Rate from SpO2 Sensor Pulse Rhythm Pulse Strength Respiratory Rate 18 16 Respiratory Effort / Characteristics Respiratory Depth Respiratory Pattern Blood Pressure Blood Pressure Mean Blood Pressure Position Pulse Oximetry Oxygen Delivery Method Sepsis Recent Fever Within 48 Hours Sepsis New/Unexplained Change in Mental Status Sepsis Action Taken by Nursing 04/07/20 14:38 04/07/20 14:40 Temperature Temperature Source Pulse Rate 75 77 Pulse Rate from SpO2 Sensor 74 77 Pulse Rhythm Pulse Strength Respiratory Rate 17 13 Respiratory Effort / Characteristics Respiratory Depth Respiratory Pattern Blood Pressure 158/86 H Blood Pressure Mean 107 Blood Pressure Position Pulse Oximetry 99 99 Oxygen Delivery Method Room Air Sepsis Recent Fever Within 48 Hours Sepsis New/Unexplained Change in Mental Status Sepsis Action Taken by Nursing VITAL SIGNS: were reviewed as above. GENERAL:Non-toxic in appearance. SKIN: Warm dry and pink. HEAD: Normocephalic and atraumatic. OROPHARYNX: Is clear and moist NECK: Supple without lymphadenopathy or meningismus. LUNGS: Are clear. HEART: Regular rate and rhythm. ABDOMEN: Soft and nontender. EXTREMITIES: Warm and well perfused. NEUROLOGICALLY: Awake alert and oriented without focal deficit. Cranial nerves 2-12 are intact. There is no pronator drift. Cerebellar testing is within normal limits. There is no nystagmus. There is no facial droop. Speech is clear. Vision suggests a right-sided visual field deficit of both right and left eye independently. MUSCULOSKELETAL: Good muscle tone. No evidence of trauma. Strength is symmetric. ALL NURSING NOTES WERE REVIEWED. Course Administered Medications Discontinued Medications Aspirin (Aspirin) 324 mg PO NOW STA Stop: 04/07/20 12:46 Last Admin: 04/07/20 12:53 Dose: 324 mg Documented by: [id number] Clopidogrel Bisulfate (Plavix) 75 mg PO NOW ONE Stop: 04/07/20 12:46 Last Admin: 04/07/20 12:53 Dose: 75 mg Documented by: [id number] Gadobutrol (Gadavist 65ml) 7.5 ml IV ONCE ONE Stop: 04/07/20 14:16 Last Admin: 04/07/20 14:15 Dose: 7.5 ml Documented by: [id number] Medical Decision Making Differential Diagnosis Differential includes intracranial bleed, tumor, mass, CVA, bilateral retinal injury/detachment Medical Records Attestation: I reviewed the patient's medical records. Home Medications Current Medication List: was personally reviewed by me Laboratory Data Attestation: I reviewed the patient's lab results. Result diagrams: 04/07/20 12:10 04/07/20 12:10 Lab Results 04/07/20 04/07/2004/07/20 Range/Units 12:10 12:10 14:40 WBC 3.98 L (4.8-10.8) K/uL RBC 3.66 L (4.7-6.1) M/uL Hgb 11.5 L (14.0-18.0) g/dL Hct 34.6 L (42-52) % MCV 94.5 (80-100) fL MCH 31.4 (25-34) pg MCHC 33.2 (32-36) g/dL RDW Std Deviation 44.8 (36.4-46.3) fL RDW Coeff of [place] 12.9 (11.5-14.5) % Plt Count 157 (130-400) K/uL MPV 8.9 (7.4-10.4) fL Immature Gran % (Auto) 1.0 % Neut % (Auto) 67.3 % Lymph % (Auto) 18.1 % Harris % (Auto) 11.6 % Eos % (Auto) 2.0 % Baso % (Auto) 0.0 % Neut # (Auto) 2.68 (1.4-6.5) K/uL Lymph # (Auto) 0.72 L (1.2-3.4) K/uL Harris # (Auto) 0.46 (0.11-0.59) K/uL Eos # (Auto) 0.08 (0-0.5) K/uL Baso # (Auto) 0.00 (0-0.2) K/uL Immature Gran # (Auto) 0.04 H (0.00-0.02) K/uL Sodium 137 (136-145) mmol/L Potassium 4.0 (3.5-5.1) mmol/L Chloride 104 (98-107) mmol/L Carbon Dioxide 29 (21-32) mmol/L Anion Gap 4.0 (3-11) BUN 21 H (7-18) mg/dl Creatinine 1.18 (0.6-1.4) mg/dl Est Cr Clr Drug Dosing 62.0 ml/min Est GFR ( Amer) 72.0 Est GFR (Non-Af Amer) 62.2 BUN/Creatinine Ratio 18.0 (10-20) Glucose 193 H (70-99) mg/dl Calcium 9.5 (8.5-10.1) mg/dl Total Bilirubin 0.6 (0.2-1) mg/dl AST 36 (15-37) U/L ALT 64 (12-78) U/L Alkaline Phosphatase 110 (45-117) U/L Total Protein 6.7 (6.4-8.2) gm/dl Albumin 3.8 (3.4-5.0) gm/dl Globulin 2.9 (2.5-4.0) gm/dl Albumin/Globulin Ratio 1.3 (0.9-2) TSH 2.060 (0.300-4.500) uIu/ml Urine Color Yellow Urine Appearance Clear (Clear) Urine pH 5.5 (4.5-7.5) Ur Specific [place] 1.027 (1.000-1.030) Urine Protein Negative (Negative) Urine Glucose (UA) Trace H (Negative) Urine Ketones Negative (Negative) Urine Blood Negative (Negative) Urine Nitrite Negative (Negative) Urine Bilirubin Negative (Negative) Urine Urobilinogen Negative (Negative) Ur Leukocyte Esterase Negative (Negative) Imaging Data Radiologist's Impression: CT scan of the brain: IMPRESSION: 1. There is focal loss of [place]-white matter differentiation identified in the left occipital lobe which likely represents acute to subacute ischemia. 2. There is no hemorrhage or mass effect. IMPRESSION: 1. Probable subacute infarct of the left occipital lobe measures up to 2.1 x 3.6 cm. 2. No acute intracranial hemorrhage, midline shift or abnormal enhancement. 3. Mild patchy T2/FLAIR hyperintensities throughout the white matter are suggestive of chronic microvascular ischemic disease. ECG Data Attestation: I personally reviewed and interpreted this ECG as follows: Indication: + other (CVA symptoms) Rate (beats per minute): 75 Rhythm: + normal sinus ECG Intervals/blocks: + Normal QT-c ECG ST segments: no ST elevation ECG Findings: no PVCs Blood Pressure Blood Pressure Findings: Elevated blood pressure Blood Pressure Disposition: further management by hospitalist KYE Mccauley Presents to the ED with a chief complaint of some visual changes. He states that it was gradual in onset with loss of the vision on the right side of both eyes. It started about 2 weeks ago. He states that a month ago he had an eye exam and was told that he had cataracts. Because of the vision changes, he saw his camouflage specialist today and was referred here after dilatation exam suggest that he has a right homonymous hemianopia. The patient has no other complaints. Denies any focal weakness of his extremities. No difficulty with speech or understanding speech. Denies any headaches, nausea or vomiting. No recent illness or fevers. The patient vital signs reveal hypertension. His physical exam does not reveal any focal neurologic deficit. There is noted to be a right-sided homonymous hemianopia. Impression & Plan Acute CVA (cerebrovascular accident) Discharge Plan Visit Data Chief Complaint: Visual Disturbance Stated Complaint: TROUBLE SEEING SENT BY DOCTOR ED Provider: Tahir Faye Discharge Problem: Acute CVA (cerebrovascular accident) Patient Disposition: Being Evaluated by Hospitalist Forms Stand Alone Forms: [facility] Gungroo Prescriptions Prescriptions: No Action glimepiride 2 mg tablet 3 mg PO BID Qty: 90 RF: 2 levothyroxine [Synthroid] 100 mcg tablet 100 mcg PO QAM Qty: 30 RF: 5 Centrum Silver Men 300-600-300 mcg tablet 1 tab PO QAM RF: 0 ferrous sulfate [Feosol] 325 mg (65 mg iron) tablet 325 mg PO QAM RF: 0 metformin 500 mg tablet extended release 24 hr 500 mg PO DAILY RF: 0 Januvia 100 mg tablet 100 mg PO DAILY Qty: 30 RF: 2 simvastatin 40 mg tablet 40 mg PO HS RF: 0 Referrals Referrals: Blayne Webber MD [Primary Care Provider] -
[2020-04-07 12:21] LABS: Eosinophils # (auto) 0.08 K/uL (0-0.5); Hematocrit (blood only) 34.6 % (42-52); Hemoglobin 11.5 g/dL (14.0-18.0); Immature Granulocytes # (auto) 0.04 K/uL (0.00-0.02); Lymphocytes # (auto) 0.72 K/uL (1.2-3.4); Lymphocytes % (auto) 18.1 %; Mean Corpuscular Hemoglobin 31.4 pg (25-34); Mean Corpuscular Hgb Conc 33.2 g/dL (32-36); Mean Corpuscular Volume 94.5 fL (80-100); Mean Platelet Volume 8.9 fL (7.4-10.4); Monocytes # (auto) 0.46 K/uL (0.11-0.59); Monocytes % (auto) 11.6 %; Neutrophils # (auto) 2.68 K/uL (1.4-6.5); Neutrophils % (auto) 67.3 %; Platelet Count 157 K/uL (130-400); RDW Coefficient of Variation 12.9 % (11.5-14.5); RDW Standard Deviation 44.8 fL (36.4-46.3); Red Blood Count 3.66 M/uL (4.7-6.1); White Blood Count 3.98 K/uL (4.8-10.8)
[2020-04-07 12:35] LABS: Albumin Level 3.8 gm/dl (3.4-5.0); Calcium 9.5 mg/dl (8.5-10.1); Est GFR (Non-African American) 62.2
--- NOTE | 2020-04-07 12:35 | CT Scan Report ---
CT SCAN OF THE BRAIN WITHOUT IV CONTRAST CLINICAL HISTORY: Right-sided vision loss. COMPARISON STUDY: No priors. TECHNIQUE: Unenhanced axial CT scan of the brain is performed from the vertex to the skull base. A do se lowering technique was utilized adhering to the principles of ALARA. CT DOSE: 614.27 mGy.cm FINDINGS: Brain parenchyma: There are age-related involutional changes noting minimal subcortical and perivent ricular microangiopathic change. There is focal loss of [place]-white matter differentiation identified in the left occipital lobe on axial image #18. There is no hemorrhage or mass effect. No extra-axial fluid collection is seen. Ventricles, sulci, cisterns: Prominent secondary to involutional change. Intracranial vasculature: There is atherosclerotic calcification of the cavernous carotid and vertebr al arteries. Calvarium: Unremarkable. Sinuses and mastoids: There is a 2.7 cm retention cyst in the right maxillary antrum. The remaining p aranasal sinuses are clear. The mastoid air cells are well pneumatized. Orbits: The bony orbits are grossly intact. IMPRESSION: 1. There is focal loss of [place]-white matter differentiation identified in the left occipital lobe whi ch likely represents acute to subacute ischemia. 2. There is no hemorrhage or mass effect. ACT 112: Negative or not required by law. Electronically signed by: Larry Mckeon M.D. 04/07/2020 12:33 PM
[2020-04-07] MEDS ORDERED: CLOPIDOGREL BISULFATE 75 MG TAB PO ONE (12:45)
[2020-04-07] MEDS ORDERED: ASPIRIN CHEW 324 MG PO STA (12:45)
[2020-04-07 12:46] LABS: Albumin Globulin Ratio 1.3 (0.9-2); Bilirubin,Total 0.6 mg/dl (0.2-1); Globulin 2.9 gm/dl (2.5-4.0); Thyroid Stimulating Hormone 2.06 uIu/ml (0.300-4.500); Total Protein 6.7 gm/dl (6.4-8.2)
--- NOTE | 2020-04-07 13:33 | Neurology Consultation ---
Date of Consultation April 07, 2020 Assessment & Plan (1) Lymphoma: (2) Dyslipidemia: (3) Diabetes type 2, controlled: (4) Abnormal CT scan, head: Reji Maria is a 69 yo man w/ PMH of DM, hypothyroidism, HLD, iron deficiency and recent diagnosis of stage IV DLBCL in 06/2019 s/p 6 rounds of R- [facility]OP chemotherapy c/b TLS/uric acid nephropathy/acute respiratory failure/HILARIO who p/t [facility] after acute onset of right hemifield visual loss. Symptom localization: left occipital lobe Stroke mechanism: cardioembolic vs hypercoagulable vs MANAGER LANGUAGE lymphoma Stroke WorkUp: - CT head: hypodensity in left occipital lobe - CTA head/neck: no LVO, high grade stenosis or aneurysm noted - MRI brain with and without contrast: T2 hyperintensity in the left occipital lobe that spares the overlying [place] matter with associated DWI restriction and possible necrotic core - History is c/f possible MANAGER LANGUAGE lymphoma, would recommend obtaining LP with opening pressure, cytology, viral PCRs, flow cytometry - would send off serum HELIO virus as well - recommend hematology consult with Dr Angulo If stroke identified on MRI, continue with stroke workup as below: - TTE: pending, will consider LANI - Telemetry: pending - A1c: pending - FLP: pending - Troponin, TSH: pending Stroke Management: - Acute treatment: ASA - Continuous cardiac monitoring, will consider Holter monitor as outpatient if telemetry here unrevealing - Vitals, Neurochecks, NIHSS per unit routine - BP parameters: SBP CAP 180, ok to continue home anti-hypertensives for permissive HTN, IV Labetalol prn - Obtain MRI brain to evaluate stroke burden - Complete ischemic stroke workup with TTE without bubble, A1c, fasting lipid panel, TSH, Tn - Consult speech, PT, OT for supportive management - Will reimbursement counselor concerning stroke education, smoking cessation, healthy diet, physical activity, weight loss - Follow up with PCP for assistance with outpatient goals (BP <135/85, LDL <70, A1c <7) - Follow up in neurology clinic in 6-8 weeks Secondary Stroke Prevention: - Antiplatelet: ASA 81mg po daily - Anticoagulation: Not indicated at this time - Statin: continue home simvastatin pending LDL value HTN: - BP parameters, as above - Ok to restart home medications with goal of lowering BP to normotension over next 3-4 days - EKG and troponin pending FEN/GI: - Diet: Cardiac HH diet and PO meds given absence of bulbar signs or symptoms - Monitor lytes and replete PRN Glucose Control: - Sliding scale insulin and accuchecks per primary team to avoid hyperglycemia Thank you for this interesting consult. Plan of care was discussed with primary team. Please call with any questions. History of Present Illness History of Present Illness Reji Maria is a 69 yo man w/ PMH of DM, hypothyroidism, HLD, iron deficiency and recent diagnosis of stage IV DLBCL in 06/2019 s/p 6 rounds of R-CHOP chemotherapy c/b TLS/uric acid nephropathy/acute respiratory failure/HILARIO who p/t [facility] after acute onset of right hemifield visual loss. 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 In the ED, pt afebrile, BP 182/93, heart rate 75, respiratory rate 18, satting 99% on room air. Was notable for WBC 3.9, hemoglobin 11.5, platelets 157, BUN 21, creatinine 1.9, glucose 193, electrolytes within normal, LFTs within normal. Images independently reviewed. CT head shows a hypodensity in the left occipital lobe. MRI brain pending at time of evaluation. On examination, he reports that he had subacute progression of right visual field symptoms over the course of several days, making it difficulty to read the crossword puzzle and prompting him to see his eye doctor. Had been to his eye doctor in March and told that he had early cataracts (no need for surgery at this time). Denies any headaches, numbness, tingling, weakness, mental status changes or hearing loss. He recently saw his oncologist on March 18, 2020 with an updated PET scan that was notable for new focal uptake within the right superior hilar lymph node suspicious for relapsed disease. Was recommended to have repeat PET/CT in 3 months. Scan showed minimally avid, nonenlarged nodes in the posterior mediastinum, retroperitoneum, left iliac and left inguinal chains, with decreased small left pleural effusion a resolved right pleural effusion. Did have mild splenomegaly with stable hypodensities consistent with history of splenic infarcts, and minimally metabolically active mixed lytic and sclerotic lesions in the right ilium and sternal that were stable. Patient Features: Admission NIHSS: 2 Admission Modified Keiser Scale: 1 Time patient last seen well: 2 weeks ago Wake up stroke: No Intubation status: Not intubated Stroke Risk Factors: Hypertension: N Hyperlipidemia: Y Atrial Fib: N Tobacco: N Diabetes: Y Taking NOAC or warfarin: N Allergies Allergy/AdvReac Type Severity Reaction Status Date / Time No Known Allergies Allergy Verified 04/07/20 12:17 Home Medications Home Medications Medication Instructions Recorded Confirmed Type simvastatin 40 mg PO HS 07/08/19 04/07/20 History ferrous sulfate 325 mg (65 mg 325 mg PO QAM 09/23/19 04/07/20 History iron) tablet eohuuuzz-wqx-xurwl acid 300 1 tab PO QAM 09/23/19 04/07/20 History mcg-lycopene 600 mcg-lutein 300 mcg tablet sitagliptin 100 mg tablet 100 mg PO DAILY #30 tab 12/23/19 04/07/20 Rx glimepiride 2 mg tablet 3 mg PO BID #90 tab 02/08/20 04/07/20 Rx levothyroxine 100 mcg tablet 100 mcg PO QAM #30 tab 03/14/20 04/07/20 Rx metformin 500 mg tablet,extended 500 mg PO DAILY tab 03/25/20 04/07/20 History release 24 hr Patient History Medical History Acute renal failure (Inactive) Hearing deficit Hypercalcemia (Inactive) Internal hemorrhoids (Inactive) Pancytopenia Tumor lysis syndrome (Inactive) Vitamin D deficiency Surgical History History of colonoscopy Port-A-Cath in place (Inactive 07/21/19) Insertion of Mediport into Right Cephalic Vein Dr. Myers 07/21/19 S/P lymph node biopsy (07/09/19) Left Marla Incisional Lymph Node Biopsy Dr. 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 Exam (Neuro) Physical Exam: General Exam: GEN: NAD, sitting down in examination bed. HEENT: No conjunctival injection, no rhinorrhea CV: RRR on monitor, no significant edema. PULM: Nonlabored respirations on room air. Neuro Exam: MS: Awake and Alert. Oriented to person, place, and month/year. Speech fluent a nd appropriate without dysarthria or paraphasic errors. Language intact including naming, comprehension, repetition. Cognition and memory grossly intact. Attention intact. No neglect. 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 Unable to assess extinction to double simultaneous stimuli. Normal fundoscopic exam. Pupils dilated, minimally reactive (had dilated exam earlier today). EOMI without nystagmus. Facial sensation intact to LT. Facial muscles full and symmetric. Hearing intact to conversation bilaterally. Uvula midline with symmetric palatal elevation. Shoulder shrug normal. Tongue midline. MOTOR: Normal bulk and tone. No pronator drift. BUE strength 5/5 at deltoids, biceps, triceps, wrist flexors and extensors, and finger flexors bilaterally. BLE strength 5/5 at iliopsoas, hamstrings, quadriceps, tibialis anterior, and gastrocnemius bilaterally. REFLEXES: 2+ at biceps, triceps, brachioradialis, patella, and Achilles bi laterally. Flexor plantar responses bilaterally. SENSORY: Intact to LT throughout, no extinction to double simultaneous stimuli. COORDINATION: No dysmetria or ataxia on hlyqrw-at-zaui bilaterally. Normal Cinda bilaterally. GAIT: Deferred due to physical status. NIH STROKE SCALE 1A. Level of Consciousness (0-3) = 0 1B. LOC Questions (0-2) = 0 1C. LOC Commands (0-2) = 0 2. Best Horizontal Gaze (0-2) = 0 3. Visual Renae (0-3) = 2 4. Facial Palsy (0-3) = 0 5. Motor Arm Right (0-4) = 0 Left (0-4) = 0 6. Motor Leg Right (0-4) = 0 Left (0-4) = 0 7. Limb Ataxia (0-2) = 0 8. Sensory (0-2) = 0 9. Best Language (0-3) = 0 10. Dysarthria (0-2) = 0 11. Extinction and Inattention (0-2) = 0 NIHSS TOTAL = 2 Results & Data ([facility]) Vital Signs (Past 12 Hours) Vital Signs Temp Pulse Resp BP Pulse Ox 04/07/20 12:17 96 04/07/20 11:35 36.6 C 75 18 182/93 H 99 PG Care Time/CCT Total # of Minutes Spent Total Time Spent with Patient: Total time spent is greater than 50% in coordination of care (as documented) at patient's floor/unit and/or counseling patient: Coding Level of Care Code 44402 Initial Inpt Care Lvl 3 Diagnoses Lymphoma C85.90 Dyslipidemia E78.5 Diabetes type 2, controlled [address] scan, head R93.0
--- NOTE | 2020-04-07 13:49 | CT Scan Report ---
CT ANGIOGRAM OF THE BRAIN; CT ANGIOGRAM OF THE NECK CLINICAL HISTORY: Stroke. Right-sided visual loss. COMPARISON STUDY: Unenhanced CT of the brain performed the same day 04/07/2020. CT of the neck dated . TECHNIQUE: Following the IV administration of 120 of Optiray 320, CT angiogram of the head and neck w as performed from the aortic arch to the vertex. Images are reviewed in the axial, sagittal, and chavez nal planes. 3-D MIPS images are created and assessed. IV contrast was administered without complicati on. All measurements were calculated based on NASCET criteria. A dose lowering technique was utilize d adhering to the principles of ALARA. CT DOSE: 627.79 mGy.cm FINDINGS: Brain parenchyma: Again seen is focal loss of orlando-white matter differentiation the left occipital lo be consistent with acute to subacute ischemia. There is no hemorrhage or mass effect. There is no mary dence of enhancing mass lesion on the angiogram phase images. The ventricles, sulci, and cisterns are normal in configuration. No extra-axial fluid collection is seen. Thoracic aorta: Visualized portions of the thoracic aorta are normal in caliber. The aortic arch demo nstrates standard 3-vessel anatomy. Right carotid arterial system: The right common carotid artery is widely patent, as are the right int ernal and external carotid arteries. Minimal plaque is noted in the carotid bulb. Left carotid arterial system: The left common carotid artery is widely patent, as are the left director internal communications al and external carotid arteries. Vertebral arteries: The vertebral arteries are widely patent and codominant. Subclavian arteries: Widely patent bilaterally. Intracranial vasculature: There is atherosclerotic calcification of the cavernous carotid arteries. T he internal carotid arteries are patent at the skull base, as are the anterior and middle cerebral ar teries bilaterally. The vertebrobasilar system and posterior cerebral arteries are widely patent. The vertebral arteries are codominant. There is no aneurysm, high-grade stenosis, or focal vessel cut of f seen throughout the intracranial circulation. Jugular veins: Patent bilaterally. Dural sinuses: Patent. Lung apices: An accessory azygous fissure is incidentally noted. Partially visualized upper lobe lung parenchyma appears clear. Soft tissues: The visualized pharyngeal soft tissues are normal in appearance noting angiographic pha se technique. The oropharyngeal airway appears widely patent. The salivary and thyroid glands are nor mal in appearance. No pathologically enlarged cervical lymph nodes are identified. Skeletal structures: The skeletal structures are osteopenic. The calvarium appears intact. The cervic al spine is maintained noting mild spondylosis. There are findings of osteoblastic metastatic disease . A large sclerotic lesion is seen in the manubrium of the sternum. A sclerotic lesion is seen in the body of T5. Sinuses and mastoids: A 2.7 cm retention cyst is noted in the right maxillary antrum. The remaining p aranasal sinuses are clear. The mastoid air cells are well pneumatized. IMPRESSION: 1. Focal loss of orlando-white matter differentiation is again seen in the left occipital lobe, and this remains typical for acute to subacute ischemia. 2. Unremarkable CT angiogram of the brain. 3. Unremarkable CT angiogram of the neck. 4. Osteoblastic metastatic lesions are identified in the manubrium of the sternum and the body of T5. ACT 112: Negative or not required by law. Electronically signed by: Larry Mckeon M.D. 04/07/2020 1:48 PM
[2020-04-07] MEDS ORDERED: GADOBUTROL 65ML VIAL IV ONE (14:15)
--- NOTE | 2020-04-07 14:32 | Magnetic Resonance Report ---
MR brain wo/w con HISTORY: 69 years-old Male right homonymous hemianopia acute visual disturbances COMPARISON: Head CT of same day, PET CT 07/08/2019, CT soft tissue neck 06/16/2019 TECHNIQUE: Multiplanar multisequence MRI of the brain was obtained both with and without the use of 7 .5 mL Gadavist FINDINGS: There is a 2.1 x 3.6 cm area of increased T2/FLAIR signal involving the left occipital lobe with slig htly increased peripheral diffusion-weighted signal and increased signal on ADC map. No associated en hancement. No acute intracranial hemorrhage, midline shift, abnormal extra-axial collection, hydrocep halus or intracranial mass. Cerebral venous sinuses appear patent. Mild patchy T2/flair hyperintensit ies throughout the white matter suggestive of probable chronic microvascular ischemic disease. Major vascular flow voids appear patent. Mastoid air cells are clear. Polypoid mucosal thickening of the ri ght maxillary sinus. Mild mucosal thickening of the remaining paranasal sinuses. The skull and orbits are unremarkable. The soft tissues are within normal limits. Midline structures including the brains tem, corpus callosum, optic chiasm, pituitary and pineal glands appear unremarkable. IMPRESSION: 1. Probable subacute infarct of the left occipital lobe measures up to 2.1 x 3.6 cm. 2. No acute intracranial hemorrhage, midline shift or abnormal enhancement. 3. Mild patchy T2/FLAIR hyperintensities throughout the white matter are suggestive of chronic microv ascular ischemic disease. ACT 112: Negative or not required by law. The above report was generated using voice recognition software. It may contain grammatical, syntax o r spelling errors. Electronically signed by: Remington Dobbins M.D. 04/07/2020 2:31 PM
--- NOTE | 2020-04-07 14:39 | XRay Report ---
XR chest 1V portable CLINICAL HISTORY: weakness COMPARISON STUDY: 11/05/2019 FINDINGS: The heart is normal in size. There is no failure. There is no focal pulmonary consolidation . There are no pleural effusions. There is an azygos fissure. There is a right subclavian A-Port cath eter. The tip projects over the superior vena cava.[ IMPRESSION: No active disease in the chest. ACT 112: Negative or not required by law. Electronically signed by: Sergei Perez M.D. 04/07/2020 2:37 PM
--- NOTE | 2020-04-07 14:49 | History & Physical Report ---
Date of Service April 07, 2020 Assessment & Plan (1) Acute CVA (cerebrovascular accident): Stroke confirmed on MRI - consistent with patient symptoms CTA head/neck pending Admit to telemetry NIH score protocol TTE HbA1C and lipid panel with AM labs PT/OT/speech ASA 324mg + Plavix 75mg given in ER. Continue ASA 81 mg PO daily. Continue simvastatin 40mg PO daily as below Consult neurology (2) Right homonymous hemianopsia: Secondary to CVA as above (3) Diffuse large B cell lymphoma: (4) Diabetes type 2, controlled: Hold home meds HbA1C with AM labs Insulin sliding scale only, will add bolus if develops hyperglycemia (5) Dyslipidemia: Lipid panel with AM labs. Based on prior LDL will continue on simvastatin 40mg PO HS. 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 He has found it difficult to explain his vision change and so his called his industrial safety and health technician when it happened but was mainly concerned about progression of his cataracts and so only just had his appointment today. No change in hearing, speech, facial droop, extremity weakness or change in sensation. At his industrial safety and health technician today he was noted to have right sided vision loss in both eyes and advised to go to the ER. 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 Also diagnosed with b/l pleural effusions requiring thoracocentesis. Now completed 6 cycles of R-CHOP. Allergies Allergy/AdvReac Type Severity Reaction Status Date / Time No Known Allergies Allergy Verified 04/07/20 12:17 Home Medications Home Medications Medication Instructions Recorded Confirmed Type simvastatin 40 mg PO HS 07/08/19 04/07/20 History ferrous sulfate 325 mg (65 mg 325 mg PO QAM 09/23/19 04/07/20 History iron) tablet lmbeldty-npc-ydlnc acid 300 1 tab PO QAM 09/23/19 04/07/20 History mcg-lycopene 600 mcg-lutein 300 mcg tablet sitagliptin 100 mg tablet 100 mg PO DAILY #30 tab 04/22/20 08/06/20 Rx glimepiride 2 mg tablet 3 mg PO BID #90 tab 02/08/20 04/07/20 Rx levothyroxine 100 mcg tablet 100 mcg PO QAM #30 tab 03/14/20 04/07/20 Rx metformin 500 mg tablet,extended 500 mg PO DAILY tab 03/25/20 04/07/20 History release 24 hr Past Med/Surg History Medical History (Updated 04/08/20 @ 07:45 by Ronnie Sharpe MD) Acute renal failure (Inactive) Diffuse large B cell lymphoma Hearing deficit Hypercalcemia (Inactive) Internal hemorrhoids (Inactive) Pancytopenia Tumor lysis syndrome (Inactive) Vitamin D deficiency Surgical History History of colonoscopy Port-A-Cath in place (Inactive 07/21/19) Insertion of Mediport into Right Cephalic Vein Dr. Myers 07/21/19 S/P lymph node biopsy (07/09/19) Left Marla Incisional Lymph Node Biopsy Dr. Myers 07/09/19 [place] teeth removed Family History Mother Brain cancer Heart disease Father Lung cancer Diabetes Denies family history of Ovarian cancer Prostate cancer Breast cancer Colorectal cancer Social History Smoking Status: Never smoker Second Hand Exposure: No; Hx Alcohol Use: Yes Alcohol type: beer and wine Hx Substance Use: No Preferred Language: Latvian Communication Ability: Effective Visual Impairment: No Limitations Hearing Ability: Normal [employer] Architect Required: No Beliefs That Will Affect Care: None marital status: Current Living Situation: Spouse current occupational status: employed and retired Other Information That Helps Us Care for You: No Feels Safe at Home: Yes Safety Concerns: Feels Safe At This Time Seatbelt Use: always Review of Systems Review of Systems: All systems reviewed & are unremarkable except as noted in HPI & below Physical Exam Constitutional: WD/WN, vitals as above Eyes: + anicteric sclerae, PERRL and EOM intact bilaterally; + abnormal visual field confrontation (b/l right right sided vision loss) and no nystagmus ENMT: external ear and nose normal, oropharynx normal Neck: trachea midline, no thyromegaly Respiratory: normal respiratory effort, lungs clear to auscultation Cardiovascular: RRR, no murmur, no edema Gastrointestinal (Abdomen): normal bowel sounds, soft, nontender, no hepatosplenomegaly Musculoskeletal: no cyanosis or clubbing, extremities motor strength 5/5 Skin: no rashes, warm and dry Neurologic: moves all extremities and awake; no focal motor deficits and not confused Speech / Cognition: normal speech Motor/Sensory: no tremor, no pronator drift and no sensory deficit Cranial Nerves: sense of smell intact, PERRL, EOM intact bilaterally, normal facial strength, tongue midline, normal hearing (at baseline), able to rotate head bilaterally, able to elevate shoulders bilaterally and no nystagmus Psychiatric: A+Ox3, euthymic affect Genitourinary: no CVA tenderness Results & Data Results & Data ([facility]) Vital Signs (Past 12 Hours) Vital Signs Temp Pulse Resp BP Pulse Ox 04/07/20 14:40 77 13 99 04/07/20 14:38 75 17 158/86 H 99 04/07/20 14:36 74 04/07/20 13:10 77 16 04/07/20 13:01 76 18 04/07/20 13:00 75 12 178/98 H 04/07/20 12:50 79 19 04/07/20 12:42 79 15 04/07/20 12:34 75 14 175/86 H 04/07/20 12:17 96 04/07/20 11:35 36.6 C 75 18 182/[address] SCAN OF THE BRAIN WITHOUT IV CONTRAST IMPRESSION: 1. There is focal loss of orlando-white matter differentiation identified in the left occipital lobe which likely represents acute to subacute ischemia. 2. There is no hemorrhage or mass effect. XR chest 1V portable IMPRESSION: No active disease in the chest. MR brain wo/w con IMPRESSION: 1. Probable subacute infarct of the left occipital lobe measures up to 2.1 x 3.6 cm. 2. No acute intracranial hemorrhage, midline shift or abnormal enhancement. 3. Mild patchy T2/FLAIR hyperintensities throughout the white matter are suggestive of chronic microvascular ischemic disease. CT ANGIOGRAM OF THE BRAIN; CT ANGIOGRAM OF THE NECK IMPRESSION: 1. Focal loss of orlando-white matter differentiation is again seen in the left occipital lobe, and this remains typical for acute to subacute ischemia. 2. Unremarkable CT angiogram of the brain. 3. Unremarkable CT angiogram of the neck. 4. Osteoblastic metastatic lesions are identified in the manubrium of the sternum and the body of T5. ECG Indication: other (CVA) Rate (beats per minute): 75 Rhythm: normal sinus Findings: + RBBB Comparison ECG Date: from (11/05/2019) Change: the following changes noted (RBBB is new) Code Status & VTE Plan Code Status Full VTE Prophylaxis Plan VTE Prophylaxis will be ordered: Yes PG Care Time/CCT Total # of Minutes Spent Total Time Spent with Patient: Total time spent is greater than 50% in coordination of care (as documented) at patient's floor/unit and/or counseling patient: Coding Level of Care Code 88566 Initial Inpt Care Lvl 3 Diagnoses Acute CVA (cerebrovascular accident) I63.9 Right homonymous hemianopsia H53.461 Diffuse large B cell lymphoma C83.30 Diabetes type 2, controlled E11.9 Dyslipidemia E78.5 Hypothyroidism E03.9
[2020-04-07 14:51] LABS: Appearance Urine Clear (Clear); Bilirubin Urine Negative (Negative); Blood Urine Negative (Negative); Color Urine Yellow; Glucose Urine UA Trace (Negative); Ketones Urine Negative (Negative); Leukocyte Esterase Urine Negative (Negative); Nitrite Urine Negative (Negative); Protein Urine Negative (Negative); Specific Gravity Urine 1.027 (1.000-1.030); Urobilinogen Urine Negative (Negative); pH Urine 5.5 (4.5-7.5)
[2020-04-07] MEDS ORDERED: PHARMACIST DISCHARGE MED REC CONSULT PRN (15:42)
[2020-04-07] MEDS ORDERED: PNEUMOCOCCAL ADMINISTRATION CHARGE ONE (16:12)
[2020-04-07] MEDS ORDERED: PNEUMOCOCCAL POLYSACCHARIDES 25 MCG/0.5 ML VIAL/SYR IM ONE (16:12)
[2020-04-07] MEDS ORDERED: GLUCAGON FOR INJ 1 MG VIAL SQ PRN (16:19)
[2020-04-07] MEDS ORDERED: GLUCOSE 40% GEL 15 GM TUBE PO PRN (16:19)
[2020-04-07] MEDS ORDERED: CARBOHYDRATES FOR HYPOGLYCEMIA PO PRN (16:19)
[2020-04-07] MEDS ORDERED: DEXTROSE 50% 50 ML SYRINGE IV PRN (16:19)
[2020-04-07] MEDS ORDERED: GLUCOSE 10 TABS/TUBE PO PRN (16:19)
[2020-04-07] MEDS: INSULIN ASPART 100 UNITS/ML 3 ML PEN SC SCH ×2 (17:25→20:48)
--- NOTE | 2020-04-07 17:33 | Electrocardiogram Report ---
Test Reason : Blood Pressure : / mmHG Vent. Rate : 075 BPM Atrial Rate : 075 BPM P-R Int : 128 ms QRS Dur : 124 ms QT Int : 448 ms P-R-T Axes : 068 078 030 degrees QTc Int : 500 ms Poor data quality, interpretation may be adversely affected Normal sinus rhythm Right bundle branch block Abnormal ECG When compared with ECG of 05-NOV-2019 10:35, Right bundle branch block is now Present Confirmed by Loco Cordero ([id number]) on 04/07/2020 5:33:39 PM Referred By: REFERRED SELF Confirmed By:Td Cordero
[2020-04-07] MEDS ORDERED: SIMVASTATIN 40 MG TAB PO SCH (21:00)
[2020-04-08] MEDS ORDERED: LEVOTHYROXINE SODIUM 100 MCG TABLET PO SCH (06:30)
[2020-04-08 07:20] LABS: Basophils # (auto) 0.01 K/uL (0-0.2); Basophils % (auto) 0.3 %; Eosinophils # (auto) 0.12 K/uL (0-0.5); Eosinophils % (auto) 3.2 %; Hematocrit (blood only) 32.6 % (42-52); Hemoglobin 10.9 g/dL (14.0-18.0); Immature Granulocytes # (auto) 0.05 K/uL (0.00-0.02); Immature Granulocytes % (auto) 1.3 %; Lymphocytes # (auto) 0.72 K/uL (1.2-3.4); Lymphocytes % (auto) 19.4 %; Mean Corpuscular Hemoglobin 31.3 pg (25-34); Mean Corpuscular Hgb Conc 33.4 g/dL (32-36); Mean Corpuscular Volume 93.7 fL (80-100); Mean Platelet Volume 8.7 fL (7.4-10.4); Monocytes # (auto) 0.49 K/uL (0.11-0.59); Monocytes % (auto) 13.2 %; Neutrophils # (auto) 2.33 K/uL (1.4-6.5); Neutrophils % (auto) 62.6 %; Platelet Count 141 K/uL (130-400); RDW Coefficient of Variation 12.9 % (11.5-14.5); RDW Standard Deviation 44.1 fL (36.4-46.3); Red Blood Count 3.48 M/uL (4.7-6.1); White Blood Count 3.72 K/uL (4.8-10.8)
[2020-04-08 07:45] LABS: BUN Creatinine Ratio 18.7 (10-20); Calcium 9.2 mg/dl (8.5-10.1); Creatinine Clr Calc Pharmacy 66.6 ml/min; Est GFR (African American) 78.4; Est GFR (Non-African American) 67.7
[2020-04-08 08:32] LABS: Estimated Average Glucose 137 mg/dl; Hemoglobin A1C 6.4 % (4.5-5.6)
[2020-04-08] MEDS ORDERED: FERROUS SULFATE 325 MG TAB PO SCH (09:00)
[2020-04-08] MEDS ORDERED: CLOPIDOGREL BISULFATE 75 MG TAB PO SCH (09:00)
[2020-04-08] MEDS ORDERED: ASPIRIN 81 MG ECTAB PO SCH (09:00)
[2020-04-08] MEDS ORDERED: CEROVITE ADV FORMULA TAB PO SCH (09:00)
--- NOTE | 2020-04-08 09:15 | Consultation Report ---
DATE OF CONSULTATION: 04/08/2020 MEDICAL ONCOLOGY CONSULTATION REASON FOR CONSULTATION: Occipital stroke in a 69-year-old gentleman with history of stage IV diffuse large B cell lymphoma. HISTORY OF PRESENT ILLNESS: The patient presents to [facility] on 04/07/2020 complaining of peripheral field vision cuts over the past several days. He denies fevers, chills or sweats. His appetite has been robust. Denies weight loss. Apparently, he did visit with his eye doctor and the eye doctor at that time informed him with the possibility of early cataracts. He was recently to see his medical oncologist at the [facility] on 03/18/2020, updated PET scan at that time was notable for new focal uptake within the right superior hilar lymph nodes suspicious for relapsed disease and was recommended to have a scan repeated in 3 months. The patient was originally diagnosed with stage IV non-Hodgkin's lymphoma in July of 2019 manifested by osseous metastatic disease. Because he had considerable bulky disease, there was risk of tumor lysis syndrome and thus he was transferred to [facility] where he completed 6 cycles of R-CHOP chemotherapy in mid November 2019. Posttreatment PET scan had revealed complete metabolic response with evidence of general lymphadenopathy in essence a residual lymphoma. I had last seen the patient on 01/13/2020 at which time he was doing relatively well. Appropriately extensive radiographic workup took place this admission and MRI of the brain reveals a subacute infarct of the left occipital lobe measuring 2.1 x 3.6 cm. CTA of the head and neck were negative for vascular pathology. Neurology is on consult and expressed a degree of suspicion for FAMILY ASSISTANT lymphoma and will carry out lumbar puncture later on this morning. PAST MEDICAL HISTORY: Acute renal injury, hypercalcemia, pancytopenia, stage IV diffuse large B cell lymphoma, tumor lysis syndrome by history. PAST SURGICAL HISTORY: Status post colonoscopy, MediPort placement, status post lymph node biopsy and wisdom teeth removal. MEDICATIONS: Prior to admission include simvastatin 40 mg p.o. daily, ferrous sulfate 325 mg p.o. daily, multivitamin 1 p.o. daily, sitagliptin 100 mg p.o. daily, glyburide 3 mg p.o. b.i.d., levothyroxine 100 mcg p.o. daily metformin 500 mg p.o. daily. ALLERGIES: No known drug allergies. SOCIAL HISTORY: The patient is and lives with his spouse. He is retired. He does consume alcohol on social basis and negative for cigarettes, or illicit drugs. FAMILY HISTORY: Mother suffered from brain cancer and heart disease. Father of lung cancer. REVIEW OF SYSTEMS: Most notably for peripheral field vision cut. GENERAL: Denies fevers, chills or sweats. He is not anorexic or losing weight. SKIN: No rashes or lesions. No history of dermatoses. HEENT: Negative for headaches, lightheadedness or dizziness. Positive for visual deficit as described. Negative for hearing loss. No sinus symptoms, sore throat or dysphagia. LYMPH: Positive history of diffuse large B cell lymphoma, established in 07/2019. CARDIAC: Negative for coronary artery disease. No current angina or palpitations. PULMONARY: Negative for COPD. He is not acutely short of breath, dyspneic or orthopneic. No cough or hemoptysis. GASTROINTESTINAL: Negative for abdominal pain, nausea, vomiting, diarrhea or constipation, hematochezia or melena stools. GENITOURINARY: No hematuria, dysuria, urinary incontinence. PSYCHIATRIC: Negative for anxiety, depression or psychoses. ENDOCRINE: Positive for hypothyroidism. MUSCULOSKELETAL: No focal muscle weakness. No arthralgias or myalgias. NEUROLOGIC: Suspected occipital stroke on MRI with associated visual deficit. HEMATOLOGIC: Positive for anemia. PHYSICAL EXAMINATION: GENERAL: A very pleasant 69-year-old, awake, alert and appropriate, in no acute distress. VITAL SIGNS: Temperature 36.9, pulse 72, respiratory rate 18, blood pressure 151/80. SKIN: Warm, dry, noncyanotic without petechia, rash or ecchymosis. HEENT: Head is atraumatic, normocephalic. Eyes: PERRLA, EOMI. Sclerae nonicteric. Nares patent without rhinorrhea or discharge. Throat is clear. Tongue is midline. Mucous membranes are moist. NECK: Supple without JVD or thyromegaly. LYMPHATICS: No cervical or supraclavicular palpable nodes. HEART: Regular rate and rhythm. No clicks, rubs, murmurs or gallops. LUNGS: Clear to auscultation bilaterally. ABDOMEN: Soft, nontender, nondistended, without palpable hepatosplenomegaly. EXTREMITIES: No calf tenderness or swelling. No clubbing, cyanosis or edema. NEUROLOGICALLY: He is awake, alert and oriented x3. Cranial nerves are grossly intact. LABORATORY DATA: WBC count 3720, hemoglobin 10.9, platelet count 141,000. Sodium 136, potassium 4.0, chloride 104, carbon dioxide 28, creatinine 1.1, BUN 21, AST 36, ALT 64. TSH 2.06. RADIOGRAPHIC DATA: MRI as described in the HPI. IMPRESSION: 1. Peripheral vision cut or visual deficit. 2. Acute cerebrovascular accident (occipital lobe). 3. Stage IV diffuse large B-cell lymphoma. 4. Type 2 diabetes mellitus. PLAN: It was my pleasure to visit with the patient at bedside this morning. This gentleman has had a very difficult recent past medical history diagnosed with stage IV diffuse large B cell lymphoma with osseous mets in July. He had bulky disease at diagnosis, which translated high risk of tumor lysis syndrome. He received all 6 cycles of induction chemotherapy in [place] completing in mid October. Posttreatment scan had revealed complete metabolic response with residual what appeared to be lymphoma noted. He now presents with subacute onset visual field cut with MRI suggestive of an occipital lobe stroke. Neurology is on consult and suspicion for possible FAMILY ASSISTANT lymphoma are raised. Certainly FAMILY ASSISTANT involvement is possible and agree with pursuing a lumbar puncture. If FAMILY ASSISTANT lymphoma is confirmed, I would recommend that he be immediately transferred to [facility] for definitive therapy, which would include perhaps high dose methotrexate with leucovorin rescue and perhaps intrathecal chemotherapy. The patient was seen in followup by his oncologist down at [place] in mid March and PET scan at that time had suggested a possible relapse. Plans are underway to repeat that PET scan in 3 months. We will continue to follow the patient during his hospital stay. I have nothing further to add and agree with current medical management. MTDD
[2020-04-08] MEDS: INSULIN ASPART 100 UNITS/ML 3 ML PEN SC SCH ×2 (09:32→12:19)
--- NOTE | 2020-04-08 10:06 | Fluoroscopy Report ---
FLUOROSCOPIC GUIDED LUMBAR PUNCTURE CLINICAL HISTORY: Right-sided homonymous hemianopsia. PROCEDURE: The risks, benefits, and alternatives to the procedure is discussed with the patient who v oiced understanding. Written informed consent was obtained. The patient was placed prone on the fluor oscopy table. The lower back was prepped and draped in the usual sterile fashion. 1% lidocaine was us ed for local anesthesia. A 20-gauge spinal needle was inserted into the L3-L4 interlaminar space, ope annie pressures were assessed, and approximately 10 cc of cerebrospinal fluid was removed. This was in itially blood-tinged before clearing. A single spot fluoroscopic image was saved. The patient tolerat ed the procedure well. There were no immediate complications. The patient was then returned to the tn dical floor for further observation. Fluoroscopy time: 0.2 minutes Opening pressure: 17 cm of water IMPRESSION: Fluoroscopic guided lumbar puncture with removal of approximately 10 cc of cerebrospinal fluid. There were no immediate complications. ACT 112: Negative or not required by law. Electronically signed by: Larry Mckeon M.D. 04/08/2020 10:04 AM
[2020-04-08 10:41] LABS: Total Protein CSF 61.3 mg/dl (15-45)
[2020-04-08 10:49] LABS: Appearance CSF Clear; CSF Count Tube # 3
[2020-04-08 10:50] LABS: CSF Xanthrochromic No xanthochromia; Color CSF Yellow
[2020-04-08 10:51] LABS: Red Blood Cell CSF (A) 1090 /uL (0-); Red Blood Cell CSF (B) 1050 /uL (0-); White Blood Cell CSF (A) 2 /uL (0-5); White Blood Cell CSF (B) 4 /uL (0-5)
[2020-04-08 11:52] LABS: Cryptococcus neoformans/ga PCR Not Detected (NotDetected); Cytomegalovirus PCR Not Detected (NotDetected); Enterovirus PCR Not Detected (NotDetected); Escherichia coli K1 PCR Not Detected (NotDetected); Haemophilius influenzae PCR Not Detected (NotDetected); Herpes Simplex Virus 1 PCR Not Detected (NotDetected); Herpes Simplex Virus 2 PCR Not Detected (NotDetected); Human Herpes Virus 6 PCR Not Detected (NotDetected); Human Parechovirus PCR Not Detected (NotDetected); Listeria monocytogenes PCR Not Detected (NotDetected); Neisseria meningitidis PCR Not Detected (NotDetected); Streptococcus agalactiae PCR Not Detected (NotDetected); Streptococcus pneumoniae PCR Not Detected (NotDetected); Varicella Zoster Virus PCR Not Detected (NotDetected)
--- NOTE | 2020-04-08 15:59 | Neurology Progress Note ---
Date of Service April 08, 2020 Assessment & Plan (1) Lymphoma: (2) Dyslipidemia: (3) Diabetes type 2, controlled: (4) Abnormal CT scan, head: Reji Maria is a 69 yo man w/ PMH of DM, hypothyroidism, HLD, iron deficiency and recent diagnosis of stage IV DLBCL in 06/2019 s/p 6 rounds of R- CHOP chemotherapy c/b TLS/uric acid nephropathy/acute respiratory failure/HILARIO who p/t [facility] after subacute onset of right hemifield visual loss. Symptom localization: left occipital lobe Stroke mechanism: cardioembolic vs hypercoagulable vs SOLDER DEPOSIT OPERATOR lymphoma Stroke WorkUp: - CT head: hypodensity in left occipital lobe - CTA head/neck: no LVO, high grade stenosis or aneurysm noted - MRI brain with and without contrast: T2 hyperintensity in the left occipital lobe that spares the overlying [place] matter with associated DWI restriction and possible necrotic core LP: 2 WBCs/1090 RBCs/56 glucose/61.3 protein, CSF biofire panel negativ, CSF Lyme pending, Gram stain showed rare WBCs/no organisms, CSF cytology pending - History is c/f possible SOLDER DEPOSIT OPERATOR lymphoma, would recommend repeat high volume LP as an outpatient to r/o SOLDER DEPOSIT OPERATOR lymphoma - would send off serum HELIO virus as well (ordered) to r/o PML - Follow up with Dr Angulo in the next 2-4 weeks. If stroke identified on MRI, continue with stroke workup as below: - TTE: pending, can order as an outpatient - Telemetry: NSR - A1c: 6.4 - FLP: 45 - TSH: WNL Stroke Management: - Continuous cardiac monitoring, will consider Holter monitor as outpatient if telemetry here unrevealing - Vitals, Neurochecks, NIHSS per unit routine - BP parameters: SBP CAP 180, ok to continue home anti-hypertensives for permissive HTN, IV Labetalol prn - Obtain MRI brain to evaluate stroke burden - Complete ischemic stroke workup with TTE without bubble, A1c, fasting lipid panel, TSH, Tn - Consult speech, PT, OT for supportive management - Will student assistance counselor concerning stroke education, smoking cessation, healthy diet, physical activity, weight loss - Follow up with PCP for assistance with outpatient goals (BP <130/80, LDL <70, A1c <7) - Follow up in neurology clinic in 4-6 weeks (can be telehealth or virtual check in) Secondary Stroke Prevention: - Antiplatelet: ASA 81mg po daily - Anticoagulation: Not indicated at this time - Statin: continue home simvastatin pending LDL value HTN: - BP parameters, as above FEN/GI: - Diet: Cardiac HH diet and PO meds given absence of bulbar signs or symptoms - Monitor lytes and replete PRN Glucose Control: - Sliding scale insulin and accuchecks per primary team to avoid hyperglycemia Thank you for this interesting consult. Plan of care was discussed with primary team. Please call with any questions. Admission and Anticipated Discharge Date Admission Date: April 07, 2020 Subjective NAEs overnight. Had LP this morning. Feels like vision loss is about the same as when he came to the hospital. Denies any new neurological symptoms. Review of Systems Review of Systems: 14 point review of systems completed and negative except as in HPI. Results & Data ([facility]) Vital Signs (Past 12 Hours) Vital Signs Temp Pulse Pulse Resp BP Pulse Ox 04/08/20 15:39 36.8 C 75 18 152/88 H 97 04/08/20 11:30 36.7 C 72 16 131/81 98 04/08/20 10:57 36.4 C L 71 18 134/83 100 04/08/20 08:15 78 04/08/20 07:26 36.9 C 72 18 151/80 H 98 04/08/20 04:00 36.7 C 75 18 124/78 99 Exam (Neuro) Physical Exam: General Exam: GEN: NAD, sitting down in examination bed. HEENT: No conjunctival injection, no rhinorrhea CV: RRR on monitor, no significant edema. PULM: Nonlabored respirations on room air. Neuro Exam: MS: Awake and Alert. Oriented to person, place, and month/year. Speech fluent and appropriate without dysarthria or paraphasic errors. Language intact including naming, comprehension, repetition. Cognition and memory grossly intact. Attention intact. No neglect. 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 PERRLA. EOMI without nystagmus. Facial sensation intact to LT. Facial muscles full and symmetric. Hearing intact to conversation bilaterally. Uvula midline with symmetric palatal elevation. Shoulder shrug normal. Tongue midline. MOTOR: Normal bulk and tone. No pronator drift. BUE strength 5/5 at deltoids, biceps, triceps, wrist flexors and extensors, and finger flexors bilaterally. BLE strength 5/5 at iliopsoas, hamstrings, quadriceps, tibialis anterior, and gastrocnemius bilaterally. REFLEXES: 2+ at biceps, triceps, brachioradialis, patella, and Achilles bilaterally. Flexor plantar responses bilaterally. SENSORY: Intact to LT throughout, no extinction to double simultaneous stimuli. COORDINATION: No dysmetria or ataxia on [id number] bilaterally. Normal Cinda bilaterally. GAIT: Deferred due to physical status. NIH STROKE SCALE 1A. Level of Consciousness (0-3) = 0 1B. LOC Questions (0-2) = 0 1C. LOC Commands (0-2) = 0 2. Best Horizontal Gaze (0-2) = 0 3. Visual Renae (0-3) = 2 4. Facial Palsy (0-3) = 0 5. Motor Arm Right (0-4) = 0 Left (0-4) = 0 6. Motor Leg Right (0-4) = 0 Left (0-4) = 0 7. Limb Ataxia (0-2) = 0 8. Sensory (0-2) = 0 9. Best Language (0-3) = 0 10. Dysarthria (0-2) = 0 11. Extinction and Inattention (0-2) = 0 NIHSS TOTAL = 2 PG Care Time/CCT Total # of Minutes Spent Total Time Spent with Patient: Total time spent is greater than 50% in coordination of care (as documented) at patient's floor/unit and/or counseling patient: Coding Level of Care Code 69191 Subseq Hosp Care Lvl 3 Diagnoses Lymphoma C85.90 Dyslipidemia E78.5 Diabetes type 2, controlled E11.[address] scan, head R93.0
[2020-04-08] MEDS ORDERED: STROKE PATIENT DISCHARGE STA (16:31)
--- NOTE | 2020-04-08 16:41 | Discharge Summary ---
Date of Service April 08, 2020 Admission HPI Per Admitting Provider Reji Maria is a 69 year old male who presents to the ER from his quality assurance tester due to vision change that occurred suddenly 2 weeks ago. He has found it difficult to explain his vision change and so his called his quality assurance tester when it happened but was mainly concerned about progression of his cataracts and so only just had his appointment today. No change in hearing, speech, facial droop, extremity weakness or change in sensation. At his quality assurance tester today he was noted to have right sided vision loss in both eyes and advised to go to the ER. He has a recent diagnosis of stave IV DLBCL in Jun and started on R-CHOP causing HILARIO (suspected uric acid nephropathy) and requiring transfer to [facility]. Also diagnosed with b/l pleural effusions requiring thoracocentesis. Now completed 6 cycles of R-CHOP. Principal Diagnosis Pt is stable. 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 Tolerating PO without issue. No other deficits noted. Pt denies fever, SOB, chest pain, abd pain, n/v/c/d, LE pain or swelling. Discharge Exam Constitutional WD/WN, vitals as above Eyes normal visual franco by confrontation and + anicteric sclerae Neck normal visual inspection and trachea midline Respiratory normal respiratory effort, lungs clear to auscultation Cardiovascular Rate/Rhythm: regular rate and regular rhythm Gastrointestinal (Abdomen) Inspection/Auscultation: abdomen not distended Percussion/Palpation: abdomen soft; abdomen nontender Musculoskeletal Head/Neck/Chest: normocephalic and head atraumatic Skin no rashes, warm and dry Neurologic awake; not confused Speech / Cognition: normal speech See Course section for full neuro exam as noted by neurologist Psychiatric A+Ox3, euthymic affect Discharge Data Allergies Allergy/AdvReac Type Severity Reaction Status Date / Time No Known Allergies Allergy Verified 04/07/20 12:17 Consultations 04/07/20 15:42 Consult Case Management - Discharge Planning Routine Consult Neurology Routine 04/07/20 16:24 Consult Oncology Routine Ordered Studies 04/07/20 11:58 CT head/brain wo con Stat 04/07/20 12:01 MR brain wo/w con Stat 04/07/20 12:46 CT angio head w con Stat CT angio neck with con Stat 04/08/20 09:00 FL lumbar puncture diagnostic Routine Hospital Course (1) Acute CVA (cerebrovascular accident): Stroke confirmed on MRI - consistent with patient symptoms CTA head/neck noted for mets on sternum and T5 body, neg for findings that might contribute to vision loss TTE--will need done as outpt HbA1C and lipid panel as noted below PT/OT/speech--neg ASA 324mg + Plavix 75mg given in ER. Continue ASA 81 mg PO daily. Continue simvastatin 40mg PO daily as below LP: 2 WBCs/1090 RBCs/56 glucose/61.3 protein CSF biofire panel neg, CSF Lyme pending, Gram stain showed rare WBCs/no organisms, CSF cytology pending, serum HELIO virus pending Neuro and oncology both concerned for possible SIMULATION SOFTWARE ENGINEER lymphoma, would recommend repeat high volume LP as an outpatient to r/o SIMULATION SOFTWARE ENGINEER lymphoma in 1 week CM to help arrange as outpt with radiology for 04/15 or after - Follow up with Dr Angulo in the next 2-4 weeks, neuro in 4-6 weeks Full neurology exam: MS: Awake and Alert. Oriented to person, place, and month/year. Speech fluent and appropriate without dysarthria or paraphasic errors. Language intact including naming, comprehension, repetition. Cognition and memory grossly intact. Attention intact. No neglect. 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 PERRLA. EOMI without nystagmus. Facial sensation intact to LT. Facial muscles full and symmetric. Hearing intact to conversation bilaterally. Uvula midline with symmetric palatal elevation. Shoulder shrug normal. Tongue midline. MOTOR: Normal bulk and tone. No pronator drift. BUE strength 5/5 at deltoids, biceps, triceps, wrist flexors and extensors, and finger flexors bilaterally. BLE strength 5/5 at iliopsoas, hamstrings, quadriceps, tibialis anterior, and gastrocnemius bilaterally. REFLEXES: 2+ at biceps, triceps, brachioradialis, patella, and Achilles bilaterally. Flexor plantar responses bilaterally. SENSORY: Intact to LT throughout, no extinction to double simultaneous stimuli. COORDINATION: No dysmetria or ataxia on [id number] bilaterally. Normal Cinda bilaterally. If pt returns with worsening sx or new sx, should be transferred to [facility] for on cology care given risk for SIMULATION SOFTWARE ENGINEER lymphoma d/w Dr. Conley at [facility] today who feels that cytology should be returned prior to initiating tx given definite stroke findings on CT/MRI Pt feels stable and would like to d/c to home to await cytology Add aspirin 81mg given CVA (2) Right homonymous hemianopsia: Secondary to CVA as above (3) Diffuse large B cell lymphoma: (4) Diabetes type 2, controlled: Hold home meds HbA1C 6.4 (5) Dyslipidemia: Lipid panel WNL with LDL 45, HDL 41, TG 95. Continue on simvastatin 40mg PO HS. (6) Hypothyroidism: TSH 2.06 Continue levothyroxine 100 mcg PO daily Total Time Total Time Spent Total Time Spent (In Minutes): >30 Total Time Includes: Examination of the Patient, Discharge Planning, Medication Reconciliation, Communication With Other Providers and Other Discharge Plan Discharge Items Patient Disposition: Home - Self-Care Reason For Visit: R HOMONYMOUS HEMIANOPIA Discharge Diagnosis: Stroke Activity: Resume your previous activity Non-emergency contact: Primary Care Provider, Neurologist and Oncologist Call non-emergency contact if: you have any medication questions and your symptoms worsen Follow-up/Referrals: Blayne Webber MD [Primary Care Provider] - Haydee Bowles MD [Physician] - (In 4 weeks) Diet: Carb Consistent or DM2 Addtl Attending Provider Instructions: You may need to have a follow up lumbar puncture done depending on the results on the one done today. Case Management will call you on Saturday with an appt for this. The earliest your testing appt would be is one week from today, which would be next Saturday. Pending Studies at Discharge: Yes Studies:: LP studies Stand-Alone Forms: Medications to Prevent Stroke, My [facility] [employer] inTouch, Smoking Cessation Medications and DC Order Prescriptions: New aspirin 81 mg Tablet,Delayed Release (Dr/Ec) 81 mg PO QAM Qty: 30 RF: 0 Continued glimepiride 2 mg tablet 3 mg PO BID Qty: 90 RF: 2 levothyroxine [Synthroid] 100 mcg tablet 100 mcg PO QAM Qty: 30 RF: 5 Centrum Silver Men 300-600-300 mcg tablet 1 tab PO QAM RF: 0 ferrous sulfate [Feosol] 325 mg (65 mg iron) tablet 325 mg PO QAM RF: 0 metformin 500 mg tablet extended release 24 hr 500 mg PO DAILY RF: 0 Januvia 100 mg tablet 100 mg PO DAILY Qty: 30 RF: 2 simvastatin 40 mg tablet 40 mg PO HS RF: 0 Discharge Orders: Discharge Order (Routine); Ordered 04/08/20 Ordered By: Sophie Daly/Other Patient Handouts: Managing Type 2 Diabetes Admission Data Admit Date/Time: 04/07/20 13:45 Attending Provider: Sophie Mckeon Admit Provider: Ronnie Sharpe Primary Care Provider: Blayne Webber Other Providers: Haydee Bowles ; Magdiel Angulo V. Other Interventions: Discharge Summary Assessment (RN) Last Done: 04/08/20 16:49 DC Date/Time DO NOT enter until pt leaves facility: 04/08/20 17:20 Coding Level of Care Code D/C Day Management >30 mins Diagnoses Acute CVA (cerebrovascular accident) I63.9 Right homonymous hemianopsia H53.461 Diffuse large B cell lymphoma C83.30 Diabetes type 2, controlled E11.9 Dyslipidemia E78.5 Hypothyroidism E03.9
--- NOTE | 2020-04-08 16:42 | Pharmacy Report ---
Pharmacist Stroke Counseling - Date of Service April 08, 2020 - Scope: Pharmacy has been consulted to provide medication discharge counseling for this patient admitted with ischemic stroke as per the Pharmacist Discharge Counseling for Stroke Patients Protocol. - Medications on Discharge: Home Medications Medication Instructions Recorded Confirmed simvastatin 40 mg PO HS 07/08/19 04/07/20 ferrous sulfate 325 mg (65 mg 325 mg PO QAM 09/23/19 04/07/20 iron) tablet koigpgmm-lab-pzdlb acid 300 1 tab PO QAM 09/23/19 04/07/20 mcg-lycopene 600 mcg-lutein 300 mcg tablet metformin 500 mg tablet,extended 500 mg PO DAILY tab 03/25/20 04/07/20 release 24 hr New Rx's Medication Instructions Recorded sitagliptin 100 mg tablet 100 mg PO DAILY #30 tab 12/23/19 glimepiride 2 mg tablet 3 mg PO BID #90 tab 02/08/20 levothyroxine 100 mcg tablet 100 mcg PO QAM #30 tab 03/14/20 aspirin 81 mg PO QAM #30 tab 04/08/20 - Action: The above medications, specifically ones for stroke treatment/prophylaxis, have been reviewed in detail with the patient's prior to discharge. This includes indication, common adverse reactions, drug interactions, and medication administration. Medication counseling has been employed using the teach-back method to ensure understanding. - Outcome: The patient's has demonstrated understanding of the medications. Additional comments: Patient's also takes Aspirin 81mg daily, she will add to AM medications patient takes. Thank you for allowing pharmacy to be involved in the care of this patient. Please call [phone] with any additional questions
[2020-04-11 12:38] LABS: NEO FLOW Lymph/Leuk Stnd SEE NEO MISC
[2020-04-14 23:14] LABS: EBV DNA Quant PCR <200 copies/mL (<200); EBV DNA Quant Source CSF; EBV DNA, Quant Log <2.30 Log cps/mL (<2.30); Lyme DNA PCR CSF or Synovial Not detected (Not Detected); Lyme DNA Source CSF; Lyme IgG Band Pattern CSF DNR; Lyme IgG CSF NO BANDS DETECTED; Lyme IgM Band Pattern CSF DNR; Lyme IgM CSF NO BANDS DETECTED
[2020-04-15 03:19] LABS: JCV Antibody POSITIVE
== END 2020-04-08 17:20 | disposition home or self-care (01) | DRG 65 ==
LOC: ED 11:33 → 2N 13:45 → SUATTDRO 13:45 → 2N 15:01